=== PATIENT | female | born 1940 | race Caucasian/White ===

== ENCOUNTER → 2016-06-19 | Outpatient (CLI) | payer MEDICARE ==
[2016-06-19 11:23] VITALS: BP 142/67; PULSE 68; RESP 16; TEMP 97.8
--- NOTE | 2016-06-19 12:03 | P.PN ---
Subjective This is follow-up visit for this patient with a history of severe and chronic low back pain secondary to sacroiliitis, lumbar spondylosis with facet arthropathy, we have done interventional pain management injection, radiofrequency ablation of the medial branch lumbar area in October,november 2015, in March 2016 we did bilateral sacroiliac joint steroid injection, this helped her low back pain significantly, currently she is complaining of severe and bilateral buttock pain, and occasional radiation to the posterolateral aspect of the lower extremity , she denies any motor or sensory deficit ,and is currently on pain medications 1-naproxen 440 milligrams twice a day Patient denies any side effects of the medication, denies excessive drowsiness or sleepiness, denies suicidal ideation, and reports that the current pain medication is NOT helping To control the pain and improve activity of daily living Physical Examinations : 1-Constitutiona : Cooperative , not in acute distress . 2-HEENT : nech ; supple , no Lymphadenopathy , no Thyromegaly , normal thyroid size . eyes : no ptosis , no icterus, no photophobia . ENT : normal of hearing , normal oropharynx , no Thrush . 3- Respiratory : Chest clear to auscultations Bilaterally , no wheezing , no Rhonchi . 4- Cardiovascular : regular rate and rhythem , S1 , S2 , no S3 , no S4. 5- Gastrointestinal : abdomen soft no tenderness , bowel sounds positive all four quadrents , no organomegally . 6- Genitourinary : Defferred . 7- neurologic : Cranial nerve II to XII intact , no focal neurological deffecit . 8-psychatric : alert , oriented X 3 , appropriate affect , intact judgment and insight . 9-Lymphatic : no Lymphadenopathy . 10- musculoskeltal : exams of the Lumber spine = motor strength lower extremities ,thigh and legs .5/5 deep tendon reflexes : normal Knee Jerk , normal ankle Jerk . lumber facet Loading Test positive Sever tenderness over the Sacroiliac joint on the Right , and Left side Assessment and plan = - Chronic low back pain secondary sacroiliitis , lumbar spondylosis with facet arthropathy without myelopathy , - diagnoses, prognosis, and treatment options including but not limited to physical therapy, surgical interventions, interventional therapies and medication management including narcotics and adjuvant medication were discussed with the patient and all questions answered to the patient's satisfaction. -medication refile =none -procedure= patient could benefit from repeat bilateral sacroiliac joint steroid injection, Objective - Vital Signs Vital signs: Vital Signs Temp 97.8 F 06/19/16 11:16 Pulse 68 06/19/16 11:16 Resp 16 06/19/16 11:16 BP 142/67 06/19/16 11:16 Pulse Ox 99 06/19/16 11:16 Intake & Output 06/18/16 06/19/16 06/19/16 18:59 06:59 18:59 Weight 72.575 kg
== END | disposition home or self-care (01) ==
LOC: PNWHC3 11:08
PROVIDERS: ATTEND Specialist
DX: M46.1 Sacroiliitis, not elsewhere classified (principal); M47.816 Spondylosis without myelopathy or radiculopathy, lumbar region; M46.96 Unspecified inflammatory spondylopathy, lumbar region; Z79.899 Other long term (current) drug therapy
CPT/HCPCS: 99211

== ENCOUNTER 2016-07-06 07:41 | Day surgery (SDC) | payer MEDICARE ==
[2016-07-03 14:30] VITALS: BMI 29.2
[~2016-07-06 07:41] MED LIST: LACTATED RINGERS 1,000 ML IV SCH
[2016-07-06 07:58] VITALS: TEMP 96.1
[2016-07-06] MEDS ORDERED: LIDOCAINE 1% 20 ML VIAL (10MG/ML) FOR IV START INTRADERMA ONE (08:01)
[2016-07-06] MEDS ORDERED: BUPIVACAINE (PF) 0.5% 30 ML VIAL ONE (09:06)
[2016-07-06] MEDS ORDERED: MIDAZOLAM 2 MG/2 ML VIAL ONE (09:06)
[2016-07-06] MEDS ORDERED: TRIAMCINOLONE ACETONIDE 40 MG/ML 1 ML VIAL ONE (09:06)
[2016-07-06] MEDS ORDERED: fentaNYL (PF) 50 MCG/ML 2 ML AMP ONE (09:06)
--- NOTE | 2016-07-06 09:27 | P.PCN ---
Date of Procedure: 07/06/16 Procedure(s) Performed: Preoperative diagnoses= 1-bilateral sacroiliitis. 2-lumbosacral spondylosis with lumbar facet arthropathy without myelopathy Postoperative diagnoses= same as preoperative diagnosis. Procedure= bilateral sacroiliac joint steroid injection under fluoroscopic guidance. Anesthesia= conscious sedation with Versed 1 mg and fentanyl 50 micrograms and local infiltration with lidocaine 1% 4 ml Estimated blood loss=minimal. Procedure indication= the patient had a history of severe chronic low back pain , diagnosed with sacroiliitis and lumbar sacral facet arthropathy unresponsive to conservative treatment. Procedure description= the patient was seen and identified in the preoperative holding area, risks and benefits and alternative of the procedure and possible complications discussed with the patient, and he agreed with the preceding, patient signed the consent, an IV was started, and vital signs were monitored and were stable throughout the procedure, patient was placed in the prone position or table and the lumbosacral area was prepped and draped with a sterile fashion, vital signs were closely monitored during the procedure, the fluoroscopy camera was placed in the contralateral oblique view on the right sacroiliac joint and the lower part of the joint was identified, local infiltration of the skin and subcutaneous tissue with lidocaine 1% 2 mL then a 22-gauge Quincke-type spinal needle advanced slowly under fluoroscopy and placed in the posterior and inferior border of the right sacroiliac joint, placement confirmed with AP and lateral view, and after appropriate needle placement confirmed and after negative aspiration for heme and CSF and there was no paresthesia during the injection, 3 ml of Marcaine 0.5% and 40 mg of Kenalog injected after negative aspiration, the needle removed, and the entire same procedure was repeated for the left sacroiliac joint Patient tolerated the procedure well without any complication, The patient returned to supine position after the back was cleaned and a Band- Aid applied, the patient transported to recovery room in stable condition and he was monitored for 30 minutes before he was discharged home and then patient was reexamined before going home and patient was discharged in stable condition and patient will follow up with the pain clinic in a few weeks
[2016-07-06] MEDS ORDERED: IV FLUID CONTINUATION 1,000 ML IV ONE (09:31)
[2016-07-06 09:44] VITALS: RESP 18
[2016-07-06 09:59] VITALS: BP 137/75; PULSE 67
--- NOTE | 2016-07-06 11:55 | FL ---
Fluoroscopy HISTORY: Pain 9 seconds fluoroscopy time supplied to the referring clinician. 2 intraoperative C-arm images docume nt the procedure. See dictated report from anesthesia.
== END 2016-07-06 10:08 | disposition home or self-care (01) ==
LOC: ORPAIN 07:41
PROVIDERS: ATTEND Specialist
DX: G89.29 Other chronic pain (principal); M54.5 Low back pain; M46.1 Sacroiliitis, not elsewhere classified; M47.817 Spondylosis without myelopathy or radiculopathy, lumbosacral region; M46.97 Unspecified inflammatory spondylopathy, lumbosacral region; Z88.5 Allergy status to narcotic agent
CPT/HCPCS: J2250; J3301; J3010; G0260

== ENCOUNTER → 2016-08-02 | Outpatient (CLI) | payer MEDICARE ==
[2016-08-02 15:41] VITALS: BP 146/75; PULSE 64; RESP 18; TEMP 97.9
--- NOTE | 2016-08-04 07:53 | P.PN ---
Subjective This is follow-up visit for this patient with a history of severe and chronic low back pain secondary to sacroiliitis,and lumbar spondylosis, we have done interventional pain management injection, bilateral sacroiliac joint steroid injection, X2 And she gets excellent pain relief for a few weeks after each injection, Physical Examinations : 1-Constitutiona : Cooperative , not in acute distress . 2-HEENT : nech ; supple , no Lymphadenopathy , no Thyromegaly , normal thyroid size . eyes : no ptosis , no icterus, no photophobia . ENT : normal of hearing , normal oropharynx , no Thrush . 3- Respiratory : Chest clear to auscultations Bilaterally , no wheezing , no Rhonchi . 4- Cardiovascular : regular rate and rhythem , S1 , S2 , no S3 , no S4. 5- Gastrointestinal : abdomen soft no tenderness , bowel sounds positive all four quadrents , no organomegally . 6- Genitourinary : Defferred . 7- neurologic : Cranial nerve II to XII intact , no focal neurological deffecit . 8-psychatric : alert , oriented X 3 , appropriate affect , intact judgment and insight . 9-Lymphatic : no Lymphadenopathy . 10- musculoskeltal : exams of the cervical spine = motor strength normal bilateral upper extremities exams of the Lumber spine = motor strength lower extremities ,thigh and legs .5/5 deep tendon reflexes : normal Knee Jerk , normal ankle Jerk . lumber facet Loading Test positive strait leg raising test negative bilaterally Fabere test negative bilaterally Range of motion: Range of motion in flexion of the lumbar spine 60 degrees Range of motion range of motion of extension of the lumbar spine 10 Sever tenderness over the Sacroiliac joint on the Right , and Left side Assessment and plan = Low back pain secondary to sacroiliitis and lumbar spondylosis , she had a good result after bilateral sacroiliac joint steroid injections Patient to be good candidate to have radiofrequency ablation of the sacroiliac joint - diagnoses, prognosis, and treatment options including but not limited to physical therapy, surgical interventions, interventional therapies , and medication management including narcotics and adjuvant medication were discussed with the patient and all The questions answered -procedure= patient will be scheduled to have radiofrequency ablation of the dorsal roundness of L5-S1, and the radiofrequency ablation Of the lateral branches of S1/S2/S3 he would do the right side first then would do the left side later on Objective - Vital Signs Vital signs: Vital Signs Temp 97.9 F 08/02/16 15:31 Pulse 64 08/02/16 15:31 Resp 18 08/02/16 15:31 BP 146/75 08/02/16 15:31 Pulse Ox Intake & Output 08/01/16 08/02/16 08/02/16 18:59 06:59 18:59 Weight 72.575 kg
== END | disposition home or self-care (01) ==
LOC: PNWHC3 14:32
PROVIDERS: ATTEND Specialist
DX: M46.1 Sacroiliitis, not elsewhere classified (principal); M47.896 Other spondylosis, lumbar region
CPT/HCPCS: 99211

== ENCOUNTER 2016-08-15 06:42 | Day surgery (SDC) | payer MEDICARE ==
[2016-08-15 07:53] VITALS: RESP 16; TEMP 96.4
[2016-08-15] MEDS ORDERED: LACTATED RINGERS 1,000 ML IV ONE (08:06)
[2016-08-15] MEDS ORDERED: LIDOCAINE 1% 20 ML VIAL (10MG/ML) FOR IV START INTRADERMA ONE (08:07)
[2016-08-15] MEDS ORDERED: fentaNYL (PF) 50 MCG/ML 2 ML AMP ONE (08:39)
[2016-08-15] MEDS ORDERED: MIDAZOLAM 2 MG/2 ML VIAL ONE (08:39)
[2016-08-15] MEDS ORDERED: TRIAMCINOLONE ACETONIDE 40 MG/ML 1 ML VIAL ONE (08:39)
[2016-08-15] MEDS ORDERED: LACTATED RINGERS 1,000 ML IV SCH (08:45)
[2016-08-15] MEDS ORDERED: IV FLUID CONTINUATION 1,000 ML IV ONE (09:16)
--- NOTE | 2016-08-15 09:18 | FL ---
EXAMINATION TYPE: FL guided pain mgmt statistic DATE OF EXAM: 08/15/2016 9:05 AM HISTORY: Flouroscopy time 15 seconds of fluoroscopy provided. IMPRESSION: 1. Fluoroscopy time.
[2016-08-15 09:31] VITALS: BP 183/74; PULSE 56
--- NOTE | 2016-08-15 10:52 | P.PCN ---
Date of Procedure: 08/15/16 Surgeon: Maldonado Sánchez Pathology: none sent Condition: stable Disposition: PACU Description of Procedure: PREOPERATIVE DIAGNOSIS: Sacroiliitis; lumbar spondylosis without myelopathy POSTOPERATIVE DIAGNOSIS: Sacroiliitis; lumbar spondylosis without myelopathy PROCEDURE: Radiofrequency thermocoagulation/ablation of the Medial branch of L5 and S1, S2, S3 lateral branch levels under fluoroscopic guidance, RIGHT side ANESTHESIA: Local with 1% lidocaine; IV sedation with Versed/fentanyl EBL: Minimal PROCEDURE INDICATION: The patient with low back pain secondary to sacroilitis with marked decrease in pain with prior sacroiliac joint injections. No use of blood thinners. PROCEDURE DESCRIPTION: The patient was seen and identified in the preoperative area. Risks, benefits, complications, and alternatives were discussed with the patient, with risks including but not limited to bleeding, infection, nerve damage, incomplete pain relief, and allergic reactions to medications. The patient agreed to proceed with the procedure and signed the informed consent after all questions were answered. IV was started. Vital signs were stable throughout the procedure. Patient was taken to the OR and time out was completed. The patient was placed in the prone position on procedure table and a pillow was placed under the abdomen to reduce lumbar lordosis. The lumbosacral area was prepped and draped in the usual sterile fashion. Critical pause was taken. Vital signs were closely monitored during the procedure. L5 Medial Branch: Using right oblique fluoroscopy, the junction of the transverse process and the superior articular process of the top of the sacrum on the right side, which correspond to the fluoroscopic image of the "eye of the Luis Antonio dog" was identified. Skin and deeper tissues were localized with 1% lidocaine at the identified level. Then using fluoroscopy, a 10-cm 20-gauge radiofrequency cannula with a 10-mm active tip was was advanced under fluoroscopic guidance until contact was made with periosteum. At this level, the Sensory testing of L5 Medial branch was performed at 50 Hz and 0 to 1 volt with production of concordant pain. Motor stimulation was done at 2 Hz with stimulation of multifidus muscle contraction at (0.1-2.5) volts. No radicular symptoms or paresthesias were produced during the testing. Subsequently, the L5 medial branch was subjected to a radiofrequency ablation at a mode of 90 seconds at 80 degrees Celsius after negative motor and sensory testing as indicated and after injecting 0.5 ml of preservative free Lidocaine 1%. Then after the radiofrequency procedure was done, 1 mL of a solution containing 4 mL of 0.5% preservative-free lidocaine mixed with 40 mg of Kenalog. S1, S2, and S3 Medial branches: Using the oblique position, the right sacroiliac joint was identified. Skin and deeper tissues corresponding to the site were anesthetized with 1% lidocaine. Under fluoroscopic guidance, a total of three 10-cm 18-gauge radiofrequency cannula with 10-mm active tips were advanced to the lateral aspects of the S1, S2, and S3 vertebral foramina. Subsequently, sensory and motor testings were performed at a total of 3 segments at 50 Hz and 2 Hz respectively which produced concordant pain without radiculopathy or paresthesia. Then each segment was subjected to radiofrequency ablation at a mode of 90 seconds at 80 degrees Celsius for a total of 3 lesions with the bipolar technique. Then after the radiofrequency procedure was done, each site was injected with 1 mL of the aforementioned solution containing 4 mL of 0.5% preservative-free lidocaine mixed with 40 mg of Kenalog. The needles were withdrawn. Area was cleaned. Band-Aid was applied. COMPLICATIONS: None. COMMENTS: DISPOSITION / PLANS: The patient was placed in a supine position and transferred to the recovery area in a stable condition for observation and was discharged from the recovery room after meeting discharge criteria. Home discharge instructions given to the patient by the staff. The patient was reexamined prior to discharge and there were no issues. The patient will schedule a follow up for left SI RFA in 4-6 weeks.
== END 2016-08-15 09:55 | disposition home or self-care (01) ==
LOC: ORPAIN 06:42
PROVIDERS: ATTEND Anesthesiology
DX: G89.29 Other chronic pain (principal); M46.1 Sacroiliitis, not elsewhere classified; M47.816 Spondylosis without myelopathy or radiculopathy, lumbar region
CPT/HCPCS: 64640; 64635; 99152; J2250; J3301; J3010

== ENCOUNTER 2016-08-29 07:43 | Day surgery (SDC) | payer MEDICARE ==
[2016-08-25 14:48] VITALS: BMI 29.2
[2016-08-29 08:29] VITALS: RESP 16; TEMP 96.7
[2016-08-29] MEDS ORDERED: LIDOCAINE 1% 20 ML VIAL (10MG/ML) FOR IV START INTRADERMA ONE (08:38)
[2016-08-29] MEDS ORDERED: MIDAZOLAM 2 MG/2 ML VIAL ONE (09:08)
[2016-08-29] MEDS ORDERED: fentaNYL (PF) 50 MCG/ML 2 ML AMP ONE (09:08)
[2016-08-29] MEDS ORDERED: TRIAMCINOLONE ACETONIDE 40 MG/ML 1 ML VIAL ONE (09:08)
[2016-08-29] MEDS ORDERED: BUPIVACAINE (PF) 0.5% 30 ML VIAL ONE (09:08)
[2016-08-29] MEDS ORDERED: IV FLUID CONTINUATION 1,000 ML IV ONE (10:06)
--- NOTE | 2016-08-29 10:06 | P.PCN ---
Date of Procedure: 08/29/16 Procedure(s) Performed: PREOPERATIVE DIAGNOSIS: 1-Lumbosacral spondylosis with facet arthropathy without myelopathy. 2- Bilateral sacroiliit. post operative Diagnosis: . 1-Lumbosacral spondylosis with facet arthropathy without myelopathy. 2-Bilateral sacroiliit. PROCEDURES: 1- Left radiofrequency thermocoagulation/ablation of the L5 dorsal ramus. 2- Left multi-site radiofrequency thermocoagulation/ablation of the S1, S2, and S3 lateral branchs. The procedure was performed using fluoroscopic guidance during needle placement to assure proper position and maximize safety . ANESTHESIA: LOCAL ANESTHESIA Marcaine 0.5% 10 ML and IV sedation with versed 1mg and Fentanyle 50 mcg EBL: NONE INDICATION/MEDICAL NECESSITY: History of low back pain secondary to bilateral sacroiliitis and lumbosacral arthropathy unresponsive to more conservative treatments. The patient reported more than 50% relief of pain symptoms following 2 previous diagnostic blocks with Bupivacaine. PROCEDURE DESCRIPTION: The patient was seen and identified in the preoperative area. Risks, benefits, complications, and alternatives were discussed with the patient. The patient agreed to proceed with the procedure and signed the consent. Vital signs were checked before and after the procedure and they remained stable. Patient ambulated to the procedure room and time out was completed. The patient was placed in the prone position on the procedure table and a pillow was placed under the abdomen to reduce lumbar lordosis. The lumbosacral area was prepped and draped in the usual sterile fashion. Critical pause was taken. L5 Dorsal Ramus RF: Using left oblique fluoroscopy, the junction of the transverse process and the superior articular process of the right S1 vertebra, which correspond to the fluoroscopic image of the "eye of the Luis Antonio dog" was identified. Subsequently, a 10-cm 20 -gauge radiofrequency cannula with a 10-mm active tip was advanced under fluoroscopic guidance until contact was made with periosteum. At this level, the Sensory testing of the left L5 dorsal ramus was performed at 50 Hz and 0 to 1 volt with production of concordant pain starting at 0.5 volt. Motor stimulation was done at 2.5 Hz with stimulation of mulitifidus muscle contration . No radicular symptoms or paresthesias were produced during the testing. Subsequently, the left L5 dorsal ramus was subjected to a radiofrequency ablation at 80 degree celsius for 90 seconds . after 0.5% Bupivacaine 1 ml injected at each level after negative aspirations . The needle was withdrawn intact. S1, S3, and S3 Lateral Branch RF: The lateral margins of the left S1, S2, and S3 foramina were identified using AP fluoroscopy. Under fluoroscopic guidance, three 10-cm 20 -gauge radiofrequency cannula with a 10-mm active tip were inserted at 8-10 mm peripheral to the posterior S1 foramen, at various locations using clock-face coordinates. The center of the clock was registered at the lateral margin of the foramen. The 9:30, 8:00, and 6:30 oclock positions were used. At this level , the sensory testing of the S1 lateral branch was performed at 50 Hz and 0 to 1 volt at the three levels with production of concordant pain starting at 0.5 volt. Motor stimulation was done at 2.5 Hz. No radicular symptoms or paresthesias were produced during the testing. Subsequently, the left S1 lateral branch was subjected to a radiofrequency ablation at a mode of 90 seconds at 80 degrees Celsius at the 3 levels after negative motor and sensory testing and after injecting 0.5 ml of preservative free Bupivacaine 0.5 %. The same procedure was performed at the level of the left S2 foramen. For the S3 foramen, only the 9:30 and 8:00 oclock positions were used. Sensory and motor testing followed by radiofrequency ablation were performed as described for the S1 and S2 foramina. The needle was withdrawn intact after each injection. COMPLICATIONS: The patient tolerated the procedure well without any acute complications. DISPOSTION/PLAN: The patient ambulated to the recovery area after the procedure in a stable condition for observation. Patient was reexamined prior to discharge. Patient was observed for 30 minutes in the recovery area and was discharged home, accompanied by an adult, after meeting discharged criteria. Discharge instructions were give to the patient by the staff. Patient was specifically instructed not to drive today and to rest for the rest of the day. The patient will schedule a follow up visit in the clinic in 2-4 weeks or earlier if needed.
--- NOTE | 2016-08-29 10:23 | FL ---
EXAMINATION TYPE: FL guided pain mgmt statistic DATE OF EXAM: 08/29/2016 10:04 AM HISTORY: Flouroscopy time 36 seconds of fluoroscopy provided. IMPRESSION: 1. Fluoroscopy time.
[2016-08-29 10:30] VITALS: BP 144/70; PULSE 55
== END 2016-08-29 10:48 | disposition home or self-care (01) ==
LOC: ORPAIN 07:43
PROVIDERS: ATTEND Specialist
DX: M47.817 Spondylosis without myelopathy or radiculopathy, lumbosacral region (principal); M46.1 Sacroiliitis, not elsewhere classified; I10 Essential (primary) hypertension; M46.96 Unspecified inflammatory spondylopathy, lumbar region; Z88.5 Allergy status to narcotic agent
CPT/HCPCS: 64640 ×2; 64635; 99152; 99153; J2250; J3301; J3010

== ENCOUNTER → 2016-09-04 | Outpatient (CLI) | payer MEDICARE ==
--- NOTE | 2016-09-05 11:13 | MM ---
Reason for exam: screening (asymptomatic). Last mammogram was performed 1 year ago. History: Patient is postmenopausal and history of other cancer. Family history of breast cancer in grandmother at age 74. Took estrogen for 5 years beginning at age 30. Physical Findings: A clinical breast exam by your physician is recommended on an annual basis and results should be correlated with mammographic findings. MG 3D Screening Mammo W/Cad Bilateral CC and MLO view(s) were taken. Prior study comparison: August 31, 2015, bilateral MG 3d diag mammo w/cad KJ. August 31, 2015, left breast US breast LT. August 17, 2014, bilateral MG screening mammo w CAD. The breast tissue is heterogeneously dense. This may lower the sensitivity of mammography. Finding: There are typically benign vascular, round linear calcifications in both breasts. There is no discrete abnormality. ASSESSMENT: Benign, BI-RAD 2 RECOMMENDATION: Routine screening mammogram of both breasts in 1 year.
== END | disposition home or self-care (01) ==
LOC: RADMAMWWP 08:31
PROVIDERS: ATTEND Family Medicine
DX: Z12.31 Encounter for screening mammogram for malignant neoplasm of breast (principal)
CPT/HCPCS: 77063; G0202

== ENCOUNTER → 2016-09-25 | Outpatient (CLI) | payer MEDICARE ==
[2016-09-25 14:44] VITALS: BP 133/74; PULSE 65; RESP 16; TEMP 97.5
--- NOTE | 2016-09-25 15:10 | P.PN ---
Progress Note - Text Patient returns for followup for back pain with significant radiation to RLE into toes. Patient underwent bilateral SIJ RFA in June and July 2016 with very little relief. Patient continues on Aleve medication for pain with some relief Patient denies adverse drug effects from medications. Today, pt denies new-onset weakness, bowel/bladder incontinence, or any other signs or symptoms of cauda equina syndrome. There are no concerns for medication diversion, misuse, or overuse. In addition to above, 13-point review of systems is also negative for chest pain , shortness of breath, changes in vision, changes in hearing, new onset weakness , abdominal pain, diarrhea, extreme fatigue, malaise, fever, skin changes, homicidal or suicidal ideation, or bowel or bladder incontinence. Gen: WDWN, AAOx3, NAD HEENT: NCAT, EOMI, hearing grossly normal Pulm: resp unlabored Abd: soft, NT, ND Neck: supple, trachea midline ROM in flexion lumbar spine: reduced ROM in extension lumbar spine: reduced Lumbar paravertebral tenderness: bilateral Facet loading: bilateral SI joint tenderness: + Osmar's: ++ bilaterally Straight leg raise: RLE Lower extremity: decreased ROM dorsiflexion/plantarflexion secondary to pain, decreased knee flexion/extension due to pain Neuro: CN II-XII grossly intact, muscle strength lower extremities PRESERVED Assessment: 1. lumbosacral spondylosis without myelopathy 2. lumbar radiculopathy 3. sacroiliitis Plan: 1. Explanation: Opioid and psychological risk scores were reviewed. Diagnoses , prognoses, and multiple treatment options including but not limited to physical therapy, interventional therapies, adjuvant medical therapies, narcotic medication therapies, and surgery were discussed with the patient and all questions were answered to the patient's satisfaction. 2. Counseling: The patient was counseled extensively on BODY MASS INDEX, EXERCISE. Specifically, the patient was instructed regarding the importance of weight loss and exercise in the context of both chronic pain and overall health. 3. Procedures: LESI x 2 after patient returns from [place] 4. Consultations: None 5. Investigations: None 6. Medications: none for now 7. Disposition: f/u for procedure PQRS measures: 1-Patient's medications are documented in the chart. 2-Tobacco use is negative, counseling given 3-Patient has not had a pneumococcal vaccine. 4-Advanced care planning discussed, patient not eligible. 5-Opioid contract signed with the patient. 6-Pain positive, follow-up visit or procedure scheduled 7-Patient's blood pressure measured and documented, and patient will follow up with the primary care physician due to HTN. 8-Patient's weight was measured, and body mass index ABOVE the normal limits, and counseling was done. Patient instructed to follow up with PCP. 9-Patient WAS NOT identified as an unhealthy alcohol user.
== END ==
LOC: PNWHC3 14:26
PROVIDERS: ATTEND Anesthesiology
DX: M47.27 Other spondylosis with radiculopathy, lumbosacral region (principal); M46.1 Sacroiliitis, not elsewhere classified
CPT/HCPCS: 99211

== ENCOUNTER 2016-11-07 07:35 | Day surgery (SDC) | payer MEDICARE ==
[2016-11-02 08:30] VITALS: BMI 29.2
[~2016-11-07 07:35] MED LIST changes: +LACTATED RINGERS 1,000 ML IV ONE; -LACTATED RINGERS 1,000 ML IV SCH
[2016-11-07 07:49] VITALS: TEMP 98.1
[2016-11-07] MEDS ORDERED: LIDOCAINE 1% 20 ML VIAL (10MG/ML) FOR IV START INTRADERMA ONE (07:52)
[2016-11-07] MEDS ORDERED: BUPIVACAINE (PF) 0.5% 30 ML VIAL ONE (08:38)
[2016-11-07] MEDS ORDERED: MIDAZOLAM 2 MG/2 ML VIAL ONE (08:38)
[2016-11-07] MEDS ORDERED: IOHEXOL 180 MG/ML 1 ML ML ONE (08:38)
[2016-11-07] MEDS ORDERED: fentaNYL (PF) 50 MCG/ML 2 ML AMP ONE (08:38)
[2016-11-07] MEDS ORDERED: DEXAMETHASONE SOD PHOSPHATE 10 MG/ML 1 ML VIAL ONE (08:38)
--- NOTE | 2016-11-07 08:51 | P.PCN ---
Date of Procedure: 11/07/16 Preoperative Diagnosis: Postoperative Diagnosis: Procedure(s) Performed: PREOPERATIVE DIAGNOSIS: 1- Lumbar Degenerative Disc Diseases 2-Lumbar spondylosis with Facet arthropathy without myelopathy 3-lumbar radiculopathy. 4-sacriiliitis. POSTOPERATIVE DIAGNOSIS: Same as preoperative diagnoses. PROCEDURE 1. Lumbar epidural steroid injection under fluoroscopic guidance at the L5-S1 level. 2. Lumbar epidurogram. ANESTHESIA: Local with 1% lidocaine 3 ml and IV sedation with Versed 1 mg , and fentanyle 50 Mcg EBL: Minimal PROCEDURE INDICATION: The patient with low back pain and radiculitis symptoms unresponsive to conservative treatment. Fluoroscopy was used to optimize visualization of the needle placement and to maximize safety. PROCEDURE DESCRIPTION / TECHNIQUE: The patient was seen and identified in the preoperative area. Risks, benefits , complications including but not limited to infections ,bleeding ,allergic reaction to the medications ,nerve damage and not complete pain releife , and alternatives were discussed with the patient. The patient agreed to proceed with the procedure and signed the consent. IV was started, and vital signs were stable. Patient was taken to the OR and time out was completed. The patient was placed in the prone position on procedure table and a pillow was placed under the abdomen to reduce lumbar lordosis. The lumbosacral area was prepped and draped in the usual sterile fashion.ere closely monitored during the procedure. Conscious sedation was used during the procedure to decrease patients anxiety. Vital signs was monitered during the entire procedure. Using anterior-posterior fluoroscopy, the L5-S1 interlaminar space was identified and the skin over this site was marked and then infiltrated with 1% lidocaine subcutaneously. Subsequently, a 20-gauge Tuohy epidural needle was inserted and advanced toward the epidural space using the ``Loss of resistance technique and guided by AP and lateral fluoroscopy. The correct needle position in the epidural space was verified with the injection of 2 mL of the water soluble contrast dye Omnipaque 180 contrast and observing an excellent epidurogram with the epidural spread of the dye, after negative aspiration for blood and CSF and in the absence of paresthesias. Again after negative aspiration, a 6 ml mixture containing 20 mg of Dexamethasone and 2 ml of preservative free Normal Saline, and 2 ml of preservative free lidocaine 1% solution was injected and a washout of epidurogram was seen. Needle was withdrawn intact, skin was cleansed, and bandages were applied. COMPLICATIONS: None DISPOSITION / PLANS: The patient was placed in a supine position and transferred to the recovery area in a stable condition for observation. There was no evidence of lower extremity motor or sensory deficit after the procedure. Patient was discharged from the recovery room after meeting discharge criteria. Home discharge instructions were given to the patient by the staff. The patient was reexamined prior to discharge. The patient will schedule a follow up in the clinic in 2-4 weeks. Implants: Indications for Procedure: Operative Findings: Description of Procedure:
--- NOTE | 2016-11-07 09:04 | FL ---
Fluoroscopy HISTORY: Pain 3 seconds fluoroscopy time supplied to the referring clinician. 1 intraoperative C-arm image documen t the procedure. See dictated report from anesthesia.
[2016-11-07 09:18] VITALS: BP 132/65; PULSE 55; RESP 18
== END 2016-11-07 09:27 | disposition home or self-care (01) ==
LOC: ORPAIN 07:35
PROVIDERS: ATTEND Specialist
DX: M51.16 Intervertebral disc disorders with radiculopathy, lumbar region (principal); M47.26 Other spondylosis with radiculopathy, lumbar region; M46.96 Unspecified inflammatory spondylopathy, lumbar region; M46.1 Sacroiliitis, not elsewhere classified; I10 Essential (primary) hypertension; Z88.5 Allergy status to narcotic agent
CPT/HCPCS: 62323; J2250; J1100; Q9965; J3010

== ENCOUNTER 2016-11-30 10:15 | Day surgery (SDC) | payer MEDICARE ==
[2016-11-28 16:03] VITALS: BMI 29.2
[~2016-11-30 10:15] MED LIST changes: -LACTATED RINGERS 1,000 ML IV ONE; +LACTATED RINGERS 1,000 ML IV SCH
[2016-11-30 10:55] VITALS: RESP 16; TEMP 97.8
[2016-11-30] MEDS ORDERED: LIDOCAINE 1% 20 ML VIAL (10MG/ML) FOR IV START SQ ONE (11:06)
[2016-11-30] MEDS ORDERED: fentaNYL (PF) 50 MCG/ML 2 ML AMP ONE (11:42)
[2016-11-30] MEDS ORDERED: MIDAZOLAM 2 MG/2 ML VIAL ONE (11:42)
--- NOTE | 2016-11-30 12:02 | P.PCN ---
Date of Procedure: 11/30/16 Preoperative Diagnosis: Postoperative Diagnosis: Procedure(s) Performed: PREOPERATIVE DIAGNOSIS: 1- Lumbar Degenerative Disc Diseases 2-Lumbar radiculopathy. 3- lumbar spondylosis with facet arthropathy. POSTOPERATIVE DIAGNOSIS: Same as preop diagnosis diagnoses PROCEDURE 1. Lumbar epidural steroid injection under fluoroscopic guidance at the L5-S1 level. 2. Lumbar epidurogram. ANESTHESIA: Local with 1% lidocaine 3 ml and IV sedation with Versed 1 mg , and fentanyle 50 Mcg EBL: Minimal PROCEDURE INDICATION: The patient with low back pain and radiculitis symptoms unresponsive to conservative treatment. Fluoroscopy was used to optimize visualization of the needle placement and to maximize safety. PROCEDURE DESCRIPTION / TECHNIQUE: The patient was seen and identified in the preoperative area. Risks, benefits , complications including but not limited to infections ,bleeding ,allergic reaction to the medications ,nerve damage and not complete pain releife , and alternatives were discussed with the patient. The patient agreed to proceed with the procedure and signed the consent. IV was started, and vital signs were stable. Patient was taken to the OR and time out was completed. The patient was placed in the prone position on procedure table and a pillow was placed under the abdomen to reduce lumbar lordosis. The lumbosacral area was prepped and draped in the usual sterile fashion.ere closely monitored during the procedure. Conscious sedation was used during the procedure to decrease patients anxiety. Vital signs was monitered during the entire procedure. Using anterior-posterior fluoroscopy, the L5-S1 interlaminar space was identified and the skin over this site was marked and then infiltrated with 1% lidocaine subcutaneously. Subsequently, a 20-gauge Tuohy epidural needle was inserted and advanced toward the epidural space using the ``Loss of resistance technique and guided by AP and lateral fluoroscopy. The correct needle position in the epidural space was verified with the injection of 2 mL of the water soluble contrast dye Omnipaque 180 contrast and observing an excellent epidurogram with the epidural spread of the dye, after negative aspiration for blood and CSF and in the absence of paresthesias. Again after negative aspiration, a 6 ml mixture containing 20 mg of Dexamethasone and 2 ml of preservative free Normal Saline, and 2 ml of preservative free lidocaine 1% solution was injected and a washout of epidurogram was seen. Needle was withdrawn intact, skin was cleansed, and bandages were applied. COMPLICATIONS: None DISPOSITION / PLANS: The patient was placed in a supine position and transferred to the recovery area in a stable condition for observation. There was no evidence of lower extremity motor or sensory deficit after the procedure. Patient was discharged from the recovery room after meeting discharge criteria. Home discharge instructions were given to the patient by the staff. The patient was reexamined prior to discharge. The patient will schedule a follow up in the clinic in 2-4 weeks. Implants: Indications for Procedure: Operative Findings: Description of Procedure:
[2016-11-30] MEDS ORDERED: IV FLUID CONTINUATION 1,000 ML IV ONE (12:10)
[2016-11-30 12:30] VITALS: BP 165/72; PULSE 55
--- NOTE | 2016-11-30 14:00 | FL ---
EXAMINATION TYPE: FL guided pain mgmt statistic DATE OF EXAM: 11/30/2016 HISTORY: Flouroscopy time 7 seconds of fluoroscopy provided. IMPRESSION: 1. Fluoroscopy time.
== END 2016-11-30 12:41 | disposition home or self-care (01) ==
LOC: ORPAIN 10:15
PROVIDERS: ATTEND Specialist
DX: M51.16 Intervertebral disc disorders with radiculopathy, lumbar region (principal); M47.26 Other spondylosis with radiculopathy, lumbar region; M46.96 Unspecified inflammatory spondylopathy, lumbar region; Z88.5 Allergy status to narcotic agent
CPT/HCPCS: 62323; J2250; J3010

== ENCOUNTER → 2017-03-07 | Outpatient (CLI) | payer MEDICARE ==
--- NOTE | 2017-03-07 13:17 | ECHOF ---
Referral Reason:R01.1 Cardiac Murmur MEASUREMENTS -------- HEIGHT: 154.9 cm WEIGHT: 72.6 kg BP: 136/64 IVSd: 1.3 cm (0.6 - 1.1) LVIDd: 3.7 cm (3.9 - 5.3) LVPWd: 1.2 cm (0.6 - 1.1) IVSs: 1.7 cm LVIDs: 3.0 cm LVPWs: 1.6 cm LAESV Index (A-L): 15.07 ml/m Ao Diam: 2.9 cm (2.0 - 3.7) AV Cusp: 1.1 cm (1.5 - 2.6) LA Diam: 3.3 cm (2.7 - 3.8) MV EXCURSION: 18.829 mm (> 18.000) MV EF SLOPE: 89 mm/s (70 - 150) EPSS: 1.8 cm MV E Yves: 1.03 m/s MV DecT: 211 ms MV A Yves: 0.90 m/s MV E/A Ratio: 1.14 AR PHT: 658 ms RAP: 5.00 mmHg RVSP: 12.80 mmHg FINDINGS -------- Sinus rhythm. This was a technically adequate study. The left ventricular size is normal. There is mild concentric left ventricular hypertrophy. Overall left ventricular systolic function is normal with, an EF between 55 - 60 %. The right ventricle is normal in size and function. Normal LA size by volume 22+/-6 ml/m2. The right atrium is normal in size. Aortic valve is trileaflet and is mildly thickened. There is mild aortic regurgitation. The aortic pressure half-time by doppler is 658ms. There is no evidence of aortic stenosis. The mitral valve leaflets are mildly thickened. There is trace mitral regurgitation. Trace tricuspid regurgitation present. Right ventricular systolic pressure is normal at < 35 mmHg. There is no evidence of pulmonary hypertension. Trace/mild (physiologic) pulmonic regurgitation. The aortic root size is normal. Normal inferior vena cava with normal inspiratory collapse consistent with estimated right atrial pressure of 5 mmHg. The pericardium is normal. There is no pericardial effusion. CONCLUSIONS -------- 1. Sinus rhythm. 2. The mitral valve leaflets are mildly thickened. 3. There is trace mitral regurgitation. 4. Trace tricuspid regurgitation present. 5. Right ventricular systolic pressure is normal at < 35 mmHg. 6. There is no evidence of pulmonary hypertension. 7. Trace/mild (physiologic) pulmonic regurgitation. 8. The aortic root size is normal. 9. There is no pericardial effusion. 10. This was a technically adequate study. 11. The left ventricular size is normal. 12. There is mild concentric left ventricular hypertrophy. 13. Overall left ventricular systolic function is normal with, an EF between 55 - 60 %. 14. Normal LA size by volume 22+/-6 ml/m2. 15. Aortic valve is trileaflet and is mildly thickened. 16. There is mild aortic regurgitation. 17. The aortic pressure half-time by doppler is 658ms. TELECOMMUNICATION LINES REPAIRER: Josesito Sue RDCS
== END | disposition home or self-care (01) ==
LOC: RADECHMAIN 11:13
PROVIDERS: ATTEND Family Medicine
DX: I37.1 Nonrheumatic pulmonary valve insufficiency (principal); I35.1 Nonrheumatic aortic (valve) insufficiency
CPT/HCPCS: 93306

== ENCOUNTER → 2017-09-11 | Outpatient (CLI) | payer MEDICARE ==
--- NOTE | 2017-09-11 10:05 | MR ---
EXAMINATION TYPE: MR lumbar spine wo con DATE OF EXAM: 09/11/2017 COMPARISON: 12/26/2012 HISTORY: Low back pain TECHNIQUE: T1 and T2 axial and sagittal images of the lumbar spine are submitted. FINDINGS: There is no abnormal signal seen within the visualized spinal cord or paraspinal soft tissu es. Vertebral body hemangioma of T11 noted large simple in the left kidney At L1-2 there is moderate degenerative disc disease with diffuse disc bulging and hypertrophic change of the ligamentum flavum and facet joints. Finding appears stable from the prior exam. There is impr ession upon the thecal sac and evidence of mild central stenosis. Mild bilateral foraminal encroachme nt. Vertebral body hemangioma of L1 noted there is a minimal anterolisthesis which is retrospectively stable. At L2-3 there is degenerative disc disease with diffuse disc bulging greater laterally to left with m ild to moderate left foraminal encroachment and mild right foraminal encroachment. Facet arthropathy and hypertrophy ligamentum flavum contribute to mild canal stenosis is stable in appearance. At L3-4 there is vacuum disc phenomenon compatible severe degenerative disc disease which is progress ed prior exam. Diffuse disc bulging and more advanced facet arthropathy with hypertrophy of the ligam entum flavum noted. There is moderate canal stenosis and bilateral foraminal. Degree of Canal stenosi s is similar to the prior exam. At L4-5 there is severe degenerative disc disease with discogenic marrow changes. Vacuum disc noted. Advanced facet arthropathy with ligamentum flavum hypertrophy and broad-based disc protrusion resulti ng in severe canal stenosis and moderate to severe bilateral foraminal encroachment greater on the ri ght. At L5-S1 there is vacuum disc phenomenon severe degenerative disc disease with advanced facet arthrop athy. There is a central disc protrusion there is broad-based central disc protrusion or small hernia tion which is mildly progressed from the prior exam and results in central stenosis. Encroachment lat eral recess noted. Moderate to severe foraminal encroachment bilaterally greater on the left. IMPRESSION: 1. Multilevel severe degenerative disc disease with multilevel disc bulging and facet arthropathy. Fi ndings result in multilevel canal stenosis and foraminal encroachment as discussed above which appear s similar to the prior exam. 2. There is mild progression of a central disc protrusion or small herniation L5-S1 with effacement o f thecal sac and central stenosis.
== END ==
LOC: RADMRIMAIN 09:13
PROVIDERS: ATTEND Neurological Surgery
DX: M48.07 Spinal stenosis, lumbosacral region (principal); M99.73 Connective tissue and disc stenosis of intervertebral foramina of lumbar region; M51.27 Other intervertebral disc displacement, lumbosacral region; M51.37 Other intervertebral disc degeneration, lumbosacral region; M46.87 Other specified inflammatory spondylopathies, lumbosacral region
CPT/HCPCS: 72148

== ENCOUNTER → 2017-10-01 | Outpatient (CLI) | payer MEDICARE ==
--- NOTE | 2017-10-01 12:01 | BD ---
EXAMINATION TYPE: MG DEXA axial skeleton. DATE OF EXAM: 10/01/2017 COMPARISON: 01/08/2004 CLINICAL HISTORY: Postmenopausal female. Osteoporosis screening. Height: 60 Weight: 166.8 FRAX RISK QUESTIONS: Alcohol (3 or more units per day): no Family History (Parent hip fracture): no Glucocorticoids (More than 3mos): no (Ex: prednisone, prednisolone, methylprednisolone, dexamethasone, and hydrocortisone). History of Fracture in Adulthood: no Secondary Osteoporosis: 1. Type 1 Diabetes: no 2. Hyperthyroidism: no 3. Menopause before 45: no 4. Malnutrition: no 5. Chronic liver disease: no Rheumatoid Arthritis: no Current Tobacco Use: no RISK FACTORS HISTORY OF: Family History of Osteoporosis: no Active: yes Diet low in dairy products/other sources of calcium: no Postmenopausal woman: hysterectomy 1961 Lost more than 2 inches in height since high school: just 2 inches Adrenal Insufficiency: nothing at current time but getting kidneys checked MEDICATIONS: blood pressure meds, cholesterol meds Additional History: EXAM MEASUREMENTS: Bone mineral densitometry was performed using the [employer] System. Bone mineral density as measured about the Lumbar spine is: ----- L1-L4(G/cm2): 1.113 T Score Values are as follows: ----- L2: -0.8 ----- L3: -0.3 ----- L4: -0.2 ----- L1-L4: -0.6 Bone mineral density has: decreased -0.6 % since study of: 01.08.2004 Bone mineral density about the R hip (g/cm2): 0.761 Bone mineral density about the L hip (g/cm2): 0.838 T Score values are as follows: -----R Neck: -2.0 -----L Neck: -1.4 -----R Total: -1.6 -----L Total: -0.7 Bone mineral density has: decreased -15.4 % since study of: 01.08.2004 IMPRESSION: Osteopenia (T Score between -2.5 and -1). There is slightly increased risk of fracture and the patient may be considered for treatment. Re-Screen 2-5 years. NOTE: T-SCORE=SD OF THE YOUNG ADULT MEAN.
--- NOTE | 2017-10-02 11:50 | MM ---
Reason for exam: screening (asymptomatic). Last mammogram was performed 1 year and 1 month ago. History: Patient is postmenopausal and history of other cancer. Family history of breast cancer in grandmother at age 74. Took estrogen for 5 years beginning at age 30. Physical Findings: A clinical breast exam by your physician is recommended on an annual basis and results should be correlated with mammographic findings. MG 3D Screening Mammo W/Cad Bilateral CC and MLO view(s) were taken. Prior study comparison: September 04, 2016, bilateral MG 3d screening mammo w/cad. August 31, 2015, bilateral MG 3d diag mammo w/cad KJ. The breast tissue is heterogeneously dense. This may lower the sensitivity of mammography. Stable benign calcifications. Stable post operative changes in the right breast. No significant changes when compared with prior studies. ASSESSMENT: Benign, BI-RAD 2 RECOMMENDATION: Routine screening mammogram of both breasts in 1 year.
== END | disposition home or self-care (01) ==
LOC: RADMAMWWP 09:51
PROVIDERS: ATTEND Family Medicine
DX: Z12.31 Encounter for screening mammogram for malignant neoplasm of breast (principal); M85.88 Other specified disorders of bone density and structure, other site; Z78.0 Asymptomatic menopausal state
CPT/HCPCS: 77063; 77067; 77080

== ENCOUNTER → 2017-10-04 | Outpatient (CLI) | payer MEDICARE ==
--- NOTE | 2017-10-04 14:36 | US ---
EXAMINATION TYPE: US kidneys/renal and bladder DATE OF EXAM: 10/04/2017 COMPARISON: MRI 09/11/2017 CLINICAL HISTORY: N28.1 Cyst of Left Kidney. Possible cyst seen on left kidney on MRI, pt also states chronic microscopic hematuria EXAM MEASUREMENTS: Right Kidney: 9.8 x 4.8 x 4.1 cm Left Kidney: 10.0 x 4.8 x 5.0 cm Right Kidney: Cyst with septation lateral/mid= 2.2 x 1.6 x 2.1 cm Left Kidney: Multiple cysts (up to 3), 1 upper/medial= 4.3 x 3.5 x 3.5 cm, 2 lateral/lower= 4.2 x 3.7 x 4.1 cm, 3 lateral/lower= 1.5 x 1.2 x 1.5 cm Bladder: wnl Bilateral Jets seen: No Left kidney cysts show anechoic appearance with increased through transmission and imperceptible wall . Cortical medullary differentiation is maintained. Right kidney cyst shows abnormal internal septati ons. IMPRESSION: Right kidney cyst is not simple, follow-up is recommended.
== END | disposition home or self-care (01) ==
LOC: RADUSWWP 11:58
PROVIDERS: ATTEND Family Medicine
DX: N28.1 Cyst of kidney, acquired (principal); Z88.8 Allergy status to other drugs, medicaments and biological substances
CPT/HCPCS: 76770

== ENCOUNTER → 2017-11-26 | Outpatient (CLI) | payer MEDICARE ==
--- NOTE | 2017-11-26 11:18 | CT ---
EXAMINATION TYPE: CT abdomen wo/w con DATE OF EXAM: 11/26/2017 HISTORY: Patient has no complaints at time of service. Follow up renal cysts seen on back MRI and US . CT DLP: 1096.6mGycm Automated Exposure Control for Dose Reduction was Utilized. CONTRAST: CT scan of the abdomen is performed with oral and without and with IV Contrast, patient injected with 80 mL of Isovue 300. COMPARISON: Renal ultrasound October 04, 2017 FINDINGS: LUNG BASES: No significant abnormality is appreciated. LIVER/GB: Noncontrast CT shows liver isodense relative to spleen consistent with mild diffuse fatty i nfiltration. Cholecystectomy clips are present.. PANCREAS: No significant abnormality is seen. SPLEEN: There is 8mm calcified splenic artery aneurysm coronal image 85. ADRENALS: No significant abnormality is seen. KIDNEYS: Noncontrast images show no renal calculi bilaterally. Postcontrast images show symmetric upt aniya and excretion without hydronephrosis bilaterally. There are 2 exophytic simple appearing cysts le ft kidney upper pole medially measuring 4.1 x 3.5 cm axial image 28 and lower pole laterally measurin g 4.0 x 3.4 cm axial image 42 series 10. There is simple appearing 1.7 x 1.5 cm cyst posterior latera lly mid pole level right kidney image 38 series 10. There is likely 1.0 cm third adjacent simple cyst s lower pole level left kidney image 40 series 10. No suspicious nodularity or enhancing cystic lesio ns are present. Findings correlate with recent ultrasound BOWEL: Oral contrast reaches level of mid transverse colon. There is no suspicious small or large bow el dilatation. There are diverticula throughout the visualized transverse colon and distal left colon . No acute diverticulitis is evident. There is soft tissue prominence of the cecum persists on all se quences acquired. There is mild wall thickening in the proximal transverse colon on all sequences acq uired. LYMPH NODES: No greater than 1cm abdominal lymph nodes are appreciated. OSSEOUS STRUCTURES: There is multilevel facet arthropathy, spurring, and disc space narrowing through out the spine which is straightened. Findings most prominent L4-L5 and L5-S1 levels. OTHER: There is mild to moderate calcified plaque of aorta extending into branch vessels. IMPRESSION: 1. Simple appearing renal cysts redemonstrated, left kidney more numerous and larger cysts noted. No worrisome solid or cystic mass identified in either kidney. 2. Attention to bowel, suspect a mild colitis involving proximal transverse colon. Cannot exclude cec al mass or neoplasm correlating with roughly axial image 54 on all sequences versus product of incomp lete distention, advise colonoscopy follow-up if has not been performed in last 3 years.
== END | disposition home or self-care (01) ==
LOC: RADCTMAIN 08:10
PROVIDERS: ATTEND Urology
DX: N28.1 Cyst of kidney, acquired (principal); Z88.5 Allergy status to narcotic agent
CPT/HCPCS: 82565; 84520; 74170; 36415; Q9967

== ENCOUNTER → 2018-10-04 | Outpatient (CLI) | payer MEDICARE ==
--- NOTE | 2018-10-07 10:40 | MM ---
Reason for exam: screening (asymptomatic). Last mammogram was performed 1 year ago. History: Patient is postmenopausal and history of other cancer. Family history of breast cancer in grandmother at age 74. Took estrogen for 5 years beginning at age 30. Physical Findings: A clinical breast exam by your physician is recommended on an annual basis and results should be correlated with mammographic findings. MG 3D Screening Mammo W/Cad Bilateral CC and MLO view(s) were taken. XCCL view(s) were taken of the left breast. Prior study comparison: October 01, 2017, bilateral MG 3d screening mammo w/cad. September 04, 2016, bilateral MG 3d screening mammo w/cad. The breast tissue is heterogeneously dense. This may lower the sensitivity of mammography. There are typically benign appearing similar bilateral calcifications. No significant changes when compared with prior studies. ASSESSMENT: Benign, BI-RAD 2 RECOMMENDATION: Routine screening mammogram of both breasts in 1 year.
== END | disposition home or self-care (01) ==
LOC: RADMAMWWP 09:35
PROVIDERS: ATTEND Family Medicine
DX: Z12.31 Encounter for screening mammogram for malignant neoplasm of breast (principal)
CPT/HCPCS: 77063; 77067

== ENCOUNTER → 2020-09-20 | Outpatient (CLI) | payer MEDICARE ==
--- NOTE | 2020-09-21 13:31 | MR ---
EXAMINATION TYPE: MR lumbar spine wo con DATE OF EXAM: 09/20/2020 COMPARISON: MRI lumbar spine 09/11/2017 HISTORY: Low back pain per patient since 2004. TECHNIQUE: Multiplanar, multisequence imaging of the lumbar spine is performed without IV contrast. FINDINGS: Slight scoliotic curvature is redemonstrated and stable. Sagittal images of the lumbar spin e show vertebral body heights to remain satisfactory. Slight grade 1 anterolisthesis L1 and L2 redemo nstrated. Multilevel disc desiccation redemonstrated. [id number] multilevel disc space narrowin g redemonstrated. Moderate to borderline advanced disc space narrowing L4-L5 level is redemonstrated. The conus medullaris is normal in position and signal ending at inferior T12 level. The bone marrow signal intensity remains within normal limits. Small hemangioma superior L1 vertebra sagittal image 6 redemonstrated. [id number] multilevel anterior spurring redemonstrated. Axial images show T12-L1 level to remain within normal limits. Axial images at L1-L2 level redemonstrate mild to moderate facet degenerative changes and ligamentum flavum hypertrophy greater on the left with some effacement along the left posterolateral thecal sac. There is moderate broad-based posterior disc protrusion effacing the anterior thecal sac. Mild bilat eral neural foraminal narrowing. No significant change from prior. Axial images at L2-L3 level show [id number] broad disc bulge effacing the anterior thecal sac a long with mild/moderate left greater than right facet degenerative changes and ligamentum flavum hype rtrophy effacing left posterior lateral thecal sac, this finding slightly more prominent versus prior . There is moderate left-sided neural foraminal narrowing more prominent from prior study with mild r ight-sided neural foraminal narrowing thought stable. Axial images at L3-L4 level show moderate facet degenerative changes and ligamentum flavum hypertroph y effacing posterior lateral thecal sac bilaterally more prominent from prior. There is moderate broa d-based posterior disc protrusion effacing anterior thecal sac. More prominent spinal canal stenosis seen on current study axial image 13 versus prior. Moderate bilateral neural foraminal narrowing slig htly more prominent from prior study noted. Axial images at L4-L5 level show moderate facet arthropathy right greater than left and ligamentum fl avum hypertrophy redemonstrated. There is moderate broad disc bulge. There is moderate right greater than left neural foraminal narrowing. No significant change from prior. Axial images at L5-S1 level show moderate to advanced facet arthropathy bilaterally. There is moderat e to advanced broad disc bulge. There is spinal canal effacement redemonstrated. There is persistent moderate to severe bilateral neural foraminal narrowing. No significant change from prior. Partial visualization of thin-walled cysts in the visualized portion of left kidney is redemonstrated . IMPRESSION: Straightening of lumbar spine with multilevel degenerative changes as detailed above. Ronni e interval degenerative progression in findings in the mid lumbar spine noted from prior MRI.
== END | disposition home or self-care (01) ==
LOC: RADMRIMAIN 11:11
PROVIDERS: ATTEND Orthopaedic Surgery
DX: M51.26 Other intervertebral disc displacement, lumbar region (principal); M51.36 Other intervertebral disc degeneration, lumbar region; M47.816 Spondylosis without myelopathy or radiculopathy, lumbar region; M99.73 Connective tissue and disc stenosis of intervertebral foramina of lumbar region
CPT/HCPCS: 72148

== ENCOUNTER → 2020-10-14 | Day surgery (SDC) | payer MEDICARE ==
[2020-10-11 15:58] VITALS: BMI 31.2
[~2020-10-14] MED LIST changes: +IOPAMIDOL M200 10 ML VIAL ONE; +IV FLUID CONTINUATION 1,000 ML IV ONE; +methylPREDNISolone ACETATE 40 MG/ML 1 ML VIAL ONE
[2020-10-14 11:42] VITALS: TEMP 97.9
--- NOTE | 2020-10-14 12:32 | P.PCN ---
Date of Procedure: 10/14/20 Procedure(s) Performed: PREOPERATIVE DIAGNOSIS: 1-Lumbar radiculopathy .2-lumbar spinal stenosis. 3- lumbar spondylosis and lumbar facet arthropathy POSTOPERATIVE DIAGNOSIS: Same as preoperative diagnoses. PROCEDURE 1. Transforaminal epidural steroid injection under fluoroscopic guidance at left L-S1 5 level. (Fluoroscopy images stored on file in the radiology Department ) 2. Lumbar epidurogram . ANESTHESIA: Local with 1% lidocaine 3 ml only . EBL: Minimal PROCEDURE INDICATION: The patient with low back pain and radiculopathy symptoms unresponsive to conservative treatment. PROCEDURE DESCRIPTION / TECHNIQUE: The patient was seen and identified in the preoperative area. Risks, benefits, complications, and alternatives were discussed with the patient. The patient agreed to proceed with the procedure and signed the consent. IV was started, and vital signs were stable. Patient was taken to the OR and time out was completed. The patient was placed in the prone position on procedure table and a pillow was placed under the abdomen to reduce lumbar lordosis. The lumbosacral area was prepped and draped in the usual sterile fashion. Critical pause was taken. Vital signs were closely monitored during the procedure. Using oblique fluoroscopy, the chin of the ``Luis Antonio dog at L5-S1 level was identified, and the skin and deeper tissues just below was localized with 1% lidocaine. Subsequently, a 22-gauge 3.5-inch spinal needle was advanced under a tunneled view fluoroscopic guidance just underneath the chin of the ``Luis Antonio dog at the left L5-S1 Under lateral fluoroscopy, the needle was then advanced to the posterior border of the interforaminal space. After negative aspiration of CSF and blood and with no paresthesias, 1 mL Isovue 200 contrast dye was injected excellent epidurogram and outlining of the nerve root Subsequently, 3 mL of block solution containing 40 mg Depo-Medrol and 2 mL of 0.9% normal saline PF was injected. Needle was removed . At the end of the procedure, skin was cleansed, and bandages were applied. COMPLICATIONS:none DISPOSITION / PLANS: The patient was placed in a supine position and transferred to the recovery area in a stable condition for observation. There was no evidence of lower extremity motor or sensory deficit after the procedure. Patient was discharged from the recovery room after meeting discharge criteria. Home discharge instructions were given to the patient by the staff. The patient was reexamined prior to discharge.
[2020-10-14 13:05] VITALS: BP 125/74; PULSE 77; RESP 16
--- NOTE | 2020-10-14 16:40 | FL ---
EXAMINATION TYPE: FL guided pain mgmt statistic DATE OF EXAM: 10/14/2020 CLINICAL HISTORY: Transforaminal injection TECHNIQUE: Fluoroscopy. COMPARISON: None. FINDINGS: Fluoroscopic guidance was provided during procedure performed by Dr. Arriola. A total of 4 seconds of fluoroscopic time was utilized during the procedure and 1 spot images was acquired, demo nstrating needle placement at the lateral aspect of L5-S1. IMPRESSION: As Above.
== END ==
LOC: ORPAIN 11:09
PROVIDERS: ATTEND Specialist
DX: M47.26 Other spondylosis with radiculopathy, lumbar region (principal); M48.061 Spinal stenosis, lumbar region without neurogenic claudication; Z88.5 Allergy status to narcotic agent; Z88.8 Allergy status to other drugs, medicaments and biological substances
CPT/HCPCS: 64483; J1030; Q9966

== ENCOUNTER → 2020-11-01 | Outpatient (CLI) | payer MEDICARE ==
[2020-11-01 12:57] VITALS: BP 175/81; PULSE 65; RESP 16; TEMP 98.1
--- NOTE | 2020-11-01 13:11 | P.PN ---
Subjective Progress Note Date: 11/01/20 This is an 80-year-old lady with history of chronic lower back pain with ra diation to the lower extremities. She feels pain which fluctuates in intensity and location lately she's been having pain in the left thigh upon waking up in the morning but improves over time .she had transforaminal epidural steroid injection at the L4 5 level on the right side which gave her neck pain relief .the most recent MRI which she had a few weeks ago there was an increase in the foraminal stenosis at the L2-L3 level and her baseline of facet arthropathy and disc degeneration . Patient denies new-onset weakness, bowel/bladder incontinence, or any other signs or symptoms of cauda equina syndrome. There are no signs of acute intoxication, and no indications of medication diversion or overuse. In addition to above, 13-point review of systems is also negative for chest pain, shortness of breath, changes in vision, changes in hearing, new onset weakness, abdominal pain, diarrhea, extreme fatigue, malaise, fever, skin changes, homicidal or suicidal ideation, or bowel or bladder incontinence. Vital Signs: Reviewed in EMR Gen: AAOx3, NAD HEENT: PERRLA,hearing grossly normal Pulm: resp unlabored Neck: supple, trachea midline Neuro exam of the lower extremities: Normal muscle strength Straight leg raising test: Osmar's test: Range of motion of the lumbar spine: Facet loading test: Tenderness in the paravertebral musculature: Positive in the lumbar area Neuro: CN II-XII grossly intact, Imaging: Reviewed in EMR/chart Assessment: Lumbar spondylosis without myelopathy Lumbar stenosis Lumbar DDD Peripheral neuropathy, not diabetic Plan: 1. Explanation: Opioid and psychological risk scores were reviewed. Diagnoses, prognoses, and multiple treatment options including but not limited to physical therapy, interventional therapies, adjuvant medical therapies, narcotic medication therapies, and surgery were discussed with the patient and all questions were answered to the patient's satisfaction. 2. Opioid agreement: Signed with the patient and the patient is warned not to use opioids while driving or before driving and not to combine opioids with benzodiazepines or alcohol. 3. Counseling: The patient was counseled extensively on SMOKING CESSATION, BODY MASS INDEX, EXERCISE. Specifically, the patient was instructed regarding the importance of smoking cessation, obesity, and exercise in the context of both chronic pain and overall health. 4. Procedures: Due to the patient's bilateral symptoms I will Schedule her for an interlaminar epidural steroid injection at the L2-L3 level. 5. Consultations: None 6. Investigations: None 7. Medications:none 8. Disposition: We'll follow up in the clinic in 4 weeks after the injection 9. Maps were reviewed and were appropriate. Objective - Vital Signs Vital signs: Vital Signs Temp 98.1 F 11/01/20 12:55 Pulse 65 11/01/20 12:55 Resp 16 11/01/20 12:55 BP 175/81 11/01/20 12:55 Pulse Ox 99 11/01/20 12:55
== END ==
LOC: PNWHC3 12:43
PROVIDERS: ATTEND Anesthesiology
DX: M51.36 Other intervertebral disc degeneration, lumbar region (principal); M48.061 Spinal stenosis, lumbar region without neurogenic claudication; M47.816 Spondylosis without myelopathy or radiculopathy, lumbar region; G62.9 Polyneuropathy, unspecified; Z88.5 Allergy status to narcotic agent; Z88.8 Allergy status to other drugs, medicaments and biological substances
CPT/HCPCS: 99211

== ENCOUNTER 2020-11-23 08:27 | Day surgery (SDC) | payer MEDICARE ==
[2020-11-22 09:48] VITALS: BMI 33.2
[~2020-11-23 08:27] MED LIST changes: -IOPAMIDOL M200 10 ML VIAL ONE; -IV FLUID CONTINUATION 1,000 ML IV ONE; -methylPREDNISolone ACETATE 40 MG/ML 1 ML VIAL ONE
[2020-11-23] MEDS ORDERED: IOPAMIDOL M200 10 ML VIAL ONE (08:59)
[2020-11-23] MEDS ORDERED: methylPREDNISolone ACETATE 40 MG/ML 1 ML VIAL ONE (08:59)
--- NOTE | 2020-11-23 09:16 | P.PCN ---
Date of Procedure: 11/23/20 Procedure(s) Performed: PREOPERATIVE DIAGNOSIS: 1- Lumbar Degenerative Disc Diseases 2-Lumbar spondylosis with Facet arthropathy without myelopathy 3-Lumbar spinal stenosis POSTOPERATIVE DIAGNOSIS: Same as preop diagnosis. PROCEDURE 1. Lumbar epidural steroid injection under fluoroscopic guidance at the L2-3 level. (Fluoroscopy imaging was available in radiology department) 2. Lumbar epidurogram. ANESTHESIA: Local with 1% lidocaine 3 ml only. EBL: Minimal PROCEDURE INDICATION: The patient with low back pain and radiculitis symptoms unresponsive to conservative treatment. Fluoroscopy was used to optimize visualization of the needle placement and to maximize safety. PROCEDURE DESCRIPTION / TECHNIQUE: The patient was seen and identified in the preoperative area. Risks, benefits, complications including but not limited to infections ,bleeding ,allergic reacti on to the medications ,nerve damage and not complete pain releife , and alternatives were discussed with the patient. The patient agreed to proceed with the procedure and signed the consent, and vital signs were stable. Patient was taken to the OR and time out was completed. The patient was placed in the prone position on procedure table and a pillow was placed under the abdomen to reduce lumbar lordosis. The lumbosacral area was prepped and draped in the usual sterile fashion.ere closely monitored during the procedure. Vital signs was monitered during the entire procedure. Using anterior-posterior fluoroscopy, the L2-3 interlaminar space was identified and the skin over this site was marked and then infiltrated with 1% lidocaine subcutaneously. Subsequently, a 20-gauge Tuohy epidural needle was inserted and advanced toward the epidural space using the ``Loss of resistance technique and guided by AP and lateral fluoroscopy. The correct needle position in the epidural space was verified with the injection of 2 mL of the water soluble contrast dye Isovue 200 contrast and observing an excellent epidurogram with the epidural spread of the dye, after negative aspiration for blood and CSF and in the absence of paresthesias. Again after negative aspiration, a 6 ml mixture containing 40 mg of Depo-medrol , and 2 ml of preservative free Normal Saline, and 2 ml of preservative free lidocaine 1% solution was injected and a washout of epidurogram was seen. Needle was withdrawn intact, skin was cleansed, and bandages were applied. COMPLICATIONS: None DISPOSITION / PLANS: The patient was placed in a supine position and transferred to the recovery area in a stable condition for observation. There was no evidence of lower extremity motor or sensory deficit after the procedure. Patient was discharged from the recovery room after meeting discharge criteria. Home discharge instructions were given to the patient by the staff. The patient was reexamined prior to discharge. The patient will schedule a follow up in the clinic in 2-4 weeks.
--- NOTE | 2020-11-23 09:30 | FL ---
EXAMINATION TYPE: FL guided pain mgmt statistic DATE OF EXAM: 11/23/2020 HISTORY: Fluoroscopy time 4 seconds of fluoroscopy provided. IMPRESSION: 1. Fluoroscopy time.
[2020-11-23 09:34] VITALS: BP 137/72; PULSE 58
== END 2020-11-23 09:44 | disposition home or self-care (01) ==
LOC: ORPAIN 08:27
PROVIDERS: ATTEND Specialist
DX: M51.36 Other intervertebral disc degeneration, lumbar region (principal); M47.816 Spondylosis without myelopathy or radiculopathy, lumbar region; M48.061 Spinal stenosis, lumbar region without neurogenic claudication
CPT/HCPCS: 62323; J1030; Q9966

== ENCOUNTER 2020-12-07 12:29 | Day surgery (SDC) | payer MEDICARE ==
[2020-12-06 10:05] VITALS: BMI 33.0
[2020-12-07 13:05] VITALS: RESP 16; TEMP 97.3
[2020-12-07] MEDS ORDERED: LIDOCAINE 1% (10MG/ML) FOR IV START INTRADERMA ONE (13:05)
[2020-12-07] MEDS ORDERED: IOPAMIDOL M200 10 ML VIAL ONE (13:14)
[2020-12-07] MEDS ORDERED: methylPREDNISolone ACETATE 40 MG/ML 1 ML VIAL ONE (13:14)
[2020-12-07] MEDS ORDERED: fentaNYL (PF) 50 MCG/ML 2 ML AMP ONE (13:14)
[2020-12-07] MEDS ORDERED: MIDAZOLAM 2 MG/2 ML VIAL ONE (13:14)
--- NOTE | 2020-12-07 13:26 | P.PCN ---
Date of Procedure: 12/07/20 Procedure(s) Performed: PREOPERATIVE DIAGNOSIS: 1- Lumbar Degenerative Disc Diseases 2-Lumbar spondylosis with Facet arthropathy without myelopathy 3-Lumbar spinal stenosis POSTOPERATIVE DIAGNOSIS: Same as preop diagnosis. PROCEDURE 1. Lumbar epidural steroid injection under fluoroscopic guidance at the L2-3 level. (Fluoroscopy imaging was available in radiology department) 2. Lumbar epidurogram. ANESTHESIA: Moderate sedation with Versed 1 mg and fentanyl 50 g. EBL: Minimal PROCEDURE INDICATION: The patient with low back pain and radiculitis symptoms unresponsive to conservative treatment. Fluoroscopy was used to optimize visualization of the needle placement and to maximize safety. PROCEDURE DESCRIPTION / TECHNIQUE: The patient was seen and identified in the preoperative area. Risks, benefits, complications including but not limited to infections ,bleeding ,allergic reaction to the medications ,nerve damage and not complete pain releife , and alternatives were discussed with the patient. The patient agreed to proceed with the procedure and signed the consent, and vital signs were stable. Patient was taken to the OR and time out was completed. The patient was placed in the prone position on procedure table and a pillow was placed under the abdomen to reduce lumbar lordosis. The lumbosacral area was prepped and draped in the usual sterile fashion.ere closely monitored during the procedure. Vital signs was monitered during the entire procedure. sedations was given to decrease patient's anxiety Using anterior-posterior fluoroscopy, the L2-3 interlaminar space was identified and the skin over this site was marked and then infiltrated with 1% lidocaine subcutaneously. Subsequently, a 20-gauge Tuohy epidural needle was inserted and advanced toward the epidural space using the ``Loss of resistance technique and guided by AP and lateral fluoroscopy. The correct needle position in the epidural space was verified with the injection of 2 mL of the water soluble contrast dye Isovue 200 contrast and observing an excellent epidurogram with the epidural spread of the dye, after negative aspiration for blood and CSF and in the absence of paresthesias. Again after negative aspiration, a 6 ml mixture containing 40 mg of Depo-medrol , and 2 ml of preservative free Normal Saline, and 2 ml of preservative free lidocaine 1% solution was injected and a washout of epidurogram was seen. Needle was withdrawn intact, skin was cleansed, and bandages were applied. COMPLICATIONS: None DISPOSITION / PLANS: The patient was placed in a supine position and transferred to the recovery area in a stable condition for observation. There was no evidence of lower extremity motor or sensory deficit after the procedure. Patient was discharged from the recovery room after meeting discharge criteria. Home discharge instructions were given to the patient by the staff. The patient was reexamined prior to discharge. The patient will schedule a follow up in the clinic in 2-4 weeks.
[2020-12-07] MEDS ORDERED: IV FLUID CONTINUATION 700 ML IV ONE (13:32)
[2020-12-07 13:57] VITALS: BP 145/70; PULSE 57
--- NOTE | 2020-12-07 13:58 | FL ---
EXAMINATION TYPE: FL guided pain mgmt statistic DATE OF EXAM: 12/07/2020 HISTORY: Fluoroscopy time 5 seconds of fluoroscopy provided. IMPRESSION: 1. Fluoroscopy time.
== END 2020-12-07 14:06 | disposition home or self-care (01) ==
LOC: ORPAIN 12:29
PROVIDERS: ATTEND Specialist
DX: M51.36 Other intervertebral disc degeneration, lumbar region (principal); M47.816 Spondylosis without myelopathy or radiculopathy, lumbar region; M48.061 Spinal stenosis, lumbar region without neurogenic claudication; Z88.5 Allergy status to narcotic agent; Z88.8 Allergy status to other drugs, medicaments and biological substances
CPT/HCPCS: 62323; J2250; J1030; J3010; Q9966

== ENCOUNTER → 2021-01-03 | Outpatient (CLI) | payer MEDICARE ==
[2021-01-03 13:06] VITALS: BP 151/87; PULSE 65; RESP 18; TEMP 98.6
--- NOTE | 2021-01-03 13:21 | P.PN ---
Subjective Progress Note Date: 01/03/21 This is an 80-year-old lady with history of chronic lower back pain with ra diation to the lower extremities with peripheral neuropathy in both feet. The patient's pain radiates down to the knees bilaterally and she feels some numbness in the right thigh laterally. She received transforaminal and interlaminar epidural steroid injection which gave her 40% of pain relief however her pain is still not was tolerating that she states. The patient denies taking any controlled substances for her pain and she takes only [id number] medications. Patient denies new-onset weakness, bowel/bladder incontinence, or any other signs or symptoms of cauda equina syndrome. There are no signs of acute intoxication, and no indications of medication diversion or overuse. In addition to above, 13-point review of systems is also negative for chest pain, shortness of breath, changes in vision, changes in hearing, new onset weakness, abdominal pain, diarrhea, extreme fatigue, malaise, fever, skin changes, homicidal or suicidal ideation, or bowel or bladder incontinence. Vital Signs: Reviewed in EMR Gen: AAOx3, NAD HEENT: PERRLA,hearing grossly normal Pulm: resp unlabored Neck: supple, trachea midline Neuro exam of the lower extremities: Normal muscle strength bilaterally patient was in Straight leg raising test: Osmar's test: Positive bilaterally Range of motion of the lumbar spine: Facet loading test: Positive tenderness around the sacroiliac joints bilaterally Neuro: CN II-XII grossly intact, Imaging: Reviewed in EMR/chart Assessment: Bilateral sacroiliitis Lumbar stenosis Lumbar spondylosis without myelopathy Obesity Peripheral neuropathy Plan: 1. Explanation: Opioid and psychological risk scores were reviewed. Diagnoses, prognoses, and multiple treatment options including but not limited to physical therapy, interventional therapies, adjuvant medical therapies, narcotic medication therapies, and surgery were discussed with the patient and all questions were answered to the patient's satisfaction. 2. Opioid agreement: Signed with the patient and the patient is warned not to use opioids while driving or before driving and not to combine opioids with benzodiazepines or alcohol. 3. Counseling: The patient was counseled extensively on SMOKING CESSATION, BODY MASS INDEX, EXERCISE. Specifically, the patient was instructed regarding the importance of smoking cessation, obesity, and exercise in the context of both chronic pain and overall health. 4. Procedures: Scheduled for bilateral sacroiliac joint steroid injection under fluoroscopic guidance 5. Consultations: None 6. Investigations: None 7. Medications: None prescribed 8. Disposition: Proceed with the above-mentioned procedure as soon as possible 9. Maps were reviewed and were appropriate. Objective - Vital Signs Vital signs: Vital Signs Temp 98.6 F 01/03/21 12:59 Pulse 65 01/03/21 12:59 Resp 18 01/03/21 12:59 BP 151/87 01/03/21 12:59 Pulse Ox 97 01/03/21 12:59
== END | disposition home or self-care (01) ==
LOC: PNWHC3 12:52
PROVIDERS: ATTEND Anesthesiology
DX: M48.061 Spinal stenosis, lumbar region without neurogenic claudication (principal); M47.816 Spondylosis without myelopathy or radiculopathy, lumbar region; G62.9 Polyneuropathy, unspecified; E66.9 Obesity, unspecified; M46.1 Sacroiliitis, not elsewhere classified
CPT/HCPCS: 99211

== ENCOUNTER 2021-01-25 12:25 | Day surgery (SDC) | payer MEDICARE ==
[2021-01-24 08:50] VITALS: BMI 31.2
[2021-01-25 12:47] VITALS: RESP 16; TEMP 96.6
[2021-01-25] MEDS ORDERED: LIDOCAINE 1% (10MG/ML) FOR IV START INTRADERMA ONE (12:51)
[2021-01-25] MEDS ORDERED: ROPIVACAINE 5MG/ML 20ML VIAL ONE (13:25)
[2021-01-25] MEDS ORDERED: MIDAZOLAM 2 MG/2 ML VIAL ONE (13:25)
[2021-01-25] MEDS ORDERED: methylPREDNISolone ACETATE 40 MG/ML 1 ML VIAL ONE (13:25)
[2021-01-25] MEDS ORDERED: fentaNYL (PF) 50 MCG/ML 2 ML AMP ONE (13:25)
--- NOTE | 2021-01-25 13:38 | P.PCN ---
Date of Procedure: 01/25/21 Procedure(s) Performed: Procedure= bilateral sacroiliac joints steroid injection under fluoroscopy guidance (fluoroscopy image stored on file in the radiology Department ) Preoperative diagnosis= 1-sacroiliitis 2-lumbar spinal stenosis 3-lumbar spondylosis with facet arthropathy Postoperative diagnosis=Same as preop Diagnosis . Complication = none Condition= stable Anesthesia= moderate sedation with intravenous Versed 1 mg , and fentanyl 50 micrograms . Indication for the procedure= patient complaining of low back pain , examination was positive for severe tenderness over the sacroiliac joints bilaterally and patient diagnosed with sacroiliitis, for this reason he/ she was good candidate for sacroiliac joint steroid injection. Description of the procedure= procedure risk and benefits discussed with the patient, including but not limited, risk of infection and bleeding, and ALLERGIC reaction to the medication and not complete pain relief and patient agreed with the preceding patient taken to the operating room, placed in prone position or standard monitors applied to the patient then after induction of anesthesia back prepped with chlorhexidine 3 times , Then under strict sterile technique, first I did the right sacroiliac joint the which was identified under fluoroscopy guidance been local infiltration of the skin and subcu interstitial with lidocaine 1% then 22-gauge Quincke Needle advanced slowly under fluoroscopy and placed in the right sacroiliac joint needle placement confirmed with AP and oblique and lateral view and after appropriate needle placement confirmed and after negative aspiration, or heme , then Ropivacaine 0.5% 4 mL, and 20 mg of Depo-Medrol mixed together and injected in the right sacroiliac joint after negative aspiration patient tolerated the procedure well without any complication. Then the left sacroiliac joint steroid injection done under strict sterile technique local infiltration of the skin and subcu interstitial at the location of the left sacroiliac joint then a 22-gauge Quincke Needle advanced slowly under fluoroscopy time placed in the left sacroiliac joint, needle placement confirmed with AP and oblique and lateral view then after appropriate needle placement confirmed and after negative aspiration 0.5% Ropivacaine 4 mL and 20 mg of Depo-Medrol injected in the left sacroiliac joint after negative aspiration patient tolerated the procedure well that any complications and she will follow up in clinic 3 weeks
[2021-01-25] MEDS ORDERED: IV FLUID CONTINUATION 1,000 ML IV ONE (13:41)
[2021-01-25 13:47] VITALS: PULSE 56
[2021-01-25 14:03] VITALS: BP 157/81
--- NOTE | 2021-01-25 14:26 | FL ---
EXAMINATION TYPE: FL guided pain mgmt statistic DATE OF EXAM: 01/25/2021 HISTORY: Fluoroscopy time 5 seconds of fluoroscopy provided. IMPRESSION: 1. Fluoroscopy time.
== END 2021-01-25 14:19 | disposition home or self-care (01) ==
LOC: ORPAIN 12:25
PROVIDERS: ATTEND Specialist
DX: M46.1 Sacroiliitis, not elsewhere classified (principal); M48.061 Spinal stenosis, lumbar region without neurogenic claudication; M47.816 Spondylosis without myelopathy or radiculopathy, lumbar region
CPT/HCPCS: G0260; J2250; J1030; J3010; J2795

== ENCOUNTER → 2021-02-21 | Outpatient (CLI) | payer MEDICARE ==
[2021-02-21 13:49] VITALS: BP 175/82; PULSE 68; RESP 20; TEMP 98.2
--- NOTE | 2021-02-21 14:15 | P.PN ---
Subjective Progress Note Date: 02/21/21 This is a follow-up visit for this 80 years old female with a chronic history of severe low back pain patient diagnosed with lumbar radiculopathy, lumbar spinal stenosis, lumbar degenerative disc disease, lumbar spondylosis with lumbar facet arthropathy, previously we have done lumbar epidural steroid injection patient continued to have severe low back pain, and a few years ago we have done RFA of the medial branch lumbar area, and patient had excellent pain relief after RFA of the medial branch, she is complaining of severe pain in the low back area with radiation to the posterior aspect of her left lower extremity, has no motor or sensory deficit she has no fever or night sweats, done physical therapy in the past and she continued to do home exercise Objective - Vital Signs Vital signs: Vital Signs Temp 98.2 F 02/21/21 13:44 Pulse 68 02/21/21 13:44 Resp 20 02/21/21 13:44 BP 175/82 02/21/21 13:44 Pulse Ox 97 02/21/21 13:44 - Exam Physical Examinations : -Constitutiona : Cooperative , not in acute distress . -HEENT : nech : supple , no Lymphadenopathy , normal thyroid size . : eyes : no ptosis , no icterus, no photophobia . - neurologic : Cranial nerve II to XII intact , no focal neurological deffecit . -psychatric : alert , oriented X 3 , appropriate affect , intact judgment and insight . -Lymphatic : no Lymphadenopathy . - musculoskeltal : Lumber spine moter stegnth lower extremities ,thigh and legs 5/5 Right side , 5/5 Left side deep tendon reflexes : normal Knee Jerk , normal ankle Jerk lumber facet Loading Test =positive Right , positive Left Range of motion of the lumbar spine Flexion 30 degrees, extension 10 degrees strait leg raising test = negative bilaterally Fabere test= negative bilaterally. Assessment and Plan Plan: Assessment and plan=1-lumbar radiculopathy. 2-lumbar spinal stenosis. 2-lumbar degenerative disc disease. 4-lumbar spondylosis with lumbar facet arthropathy. Description: Benefit from repeat RFA of the medial branch lumbar area at L3, 4, L5 bilaterally Time with Patient: Less than 30
== END | disposition home or self-care (01) ==
LOC: PNWHC3 13:22
PROVIDERS: ATTEND Specialist
DX: M48.061 Spinal stenosis, lumbar region without neurogenic claudication (principal); M51.16 Intervertebral disc disorders with radiculopathy, lumbar region; M46.96 Unspecified inflammatory spondylopathy, lumbar region
CPT/HCPCS: 99211

== ENCOUNTER 2021-04-01 08:56 | Day surgery (SDC) | payer MEDICARE ==
[2021-03-30 15:37] VITALS: BMI 32.2
[2021-04-01 09:10] VITALS: TEMP 96.3
[2021-04-01] MEDS ORDERED: fentaNYL (PF) 50 MCG/ML 2 ML AMP ONE (09:44)
[2021-04-01] MEDS ORDERED: ROPIVACAINE 5MG/ML 20ML VIAL ONE (09:44)
[2021-04-01] MEDS ORDERED: MIDAZOLAM 2 MG/2 ML VIAL ONE (09:44)
[2021-04-01] MEDS ORDERED: TRIAMCINOLONE ACETONIDE 40 MG/ML 1 ML VIAL ONE (09:44)
--- NOTE | 2021-04-01 10:16 | P.PCN ---
Date of Procedure: 04/01/21 Procedure(s) Performed: PREOPERATIVE DIAGNOSIS: 1-Lumbar Spondylosis with Facet Arthropathy without myelopathy. 2- Lumber degenerative disc disease. POSTOPERATIVE DIAGNOSIS: 1- Lumbar Spondylosis with Facet Arthropathy without myelopathy. 2- Lumber degenerative disc disease. PROCEDURES : Bilateral Radiofrequency thermocoagulation, L3 , L4 , and L5 medial branch, with fluoroscopic guidance (fluoroscopy images available in the radiology department) ( to denervate the facet joint at Bilateral L4-5 ,and L5-S1 levels ). ANESTHESIA: Monitered anesthesia care . EBL: Minimal PROCEDURE INDICATION: The patient with low back pain secondary to lumbar facet arthropathy who had more than 50% relief of her pain with previous diagnostic lumbar medial branch block with bupivacaine. PROCEDURE DESCRIPTION / TECHNIQUE: The patient was seen and identified in the preoperative area. Risks, benefits, complications, including but not limited to risk of infection ,bleeding , allergic reactions to the medications and no complete pain releife , and alternatives were discussed with the patient, the patient agreed to proceed with the procedure and signed the consent. IV was started. Vital signs remained stable throughout the procedure. Patient was taken to the OR and time out was completed. The patient was placed in the prone position on the procedure table. The lumber area was prepped and draped in the usual sterile fashion. . Vital signs were closely monitored during the procedure .IV sedation was used during the procedure to decrease patients anxiety. Using AP and then oblique fluoroscopy, the ``eye of the Luis Antonio dog corresponding to the connection between the superior and transverse articular processes of right L3, L4, and L5 were identified, marked, and localized with 1% lidocaine. Subsequently, a 18 [id number] radiofrequency cannula with a 10- mm active tip was advanced guided by fluoroscopy to each of the``eyes of the Luis Antonio dog at right L3, L4, and L5. Each site then underwent sensory testing at 50 Hz and 0 to 1 volt and motor testing at 2.5 Hz and 0 to 3 volt with local stimulation, but no radicular symptoms down the legs. Thereafter each sites underwent radiofrequency thermocoagulation at 80 degrees celsius for 90 seconds after injecting 0.5 ml of PF Ropivacaine 1ml, then after the thermocoagulation done , 1 ml of the block solution containing Kenalog 20 mg and 3 ml of Ropivacaine 0.5% was injected at the right L3 , L4 , and L5 , levels after negative aspiration of CSF and blood and with no paresthesias. Cannulas were retracted while injecting lidocaine 1% until the needle is out. The same procedure was repeated at the level of Left L3, L4, and L5 levels. At the end of the procedure, the skin was cleansed and bandages were applied. COMPLICATIONS: No acute complications. DISPOSITION / PLANS: The patient was placed in a supine position and transferred to the recovery area in a stable condition for observation and was discharged from the recovery room after meeting discharge criteria. Home dischar ge instructions given to the patient by the staff. The patient was reexamined prior to discharge. The patient will schedule a follow up in the clinic in 2-4 weeks.
--- NOTE | 2021-04-01 10:22 | FL ---
EXAMINATION TYPE: FL guided pain mgmt statistic DATE OF EXAM: 04/01/2021 HISTORY: Fluoroscopy time 17 seconds of fluoroscopy provided. IMPRESSION: 1. Fluoroscopy time.
[2021-04-01] MEDS ORDERED: IV FLUID CONTINUATION 1,000 ML IV ONE (10:35)
[2021-04-01 10:57] VITALS: BP 142/76; PULSE 66; RESP 20
== END 2021-04-01 10:49 | disposition home or self-care (01) ==
LOC: ORPAIN 08:56
PROVIDERS: ATTEND Specialist
DX: M47.816 Spondylosis without myelopathy or radiculopathy, lumbar region (principal); M51.36 Other intervertebral disc degeneration, lumbar region; Z88.5 Allergy status to narcotic agent; Z88.8 Allergy status to other drugs, medicaments and biological substances; E78.5 Hyperlipidemia, unspecified; Z79.899 Other long term (current) drug therapy
CPT/HCPCS: 64635; 64636; J2250; J3301; J3010; J2795

== ENCOUNTER → 2021-04-20 | Outpatient (CLI) | payer MEDICARE ==
[2021-04-20 13:48] VITALS: BP 176/92; PULSE 65; RESP 18; TEMP 98.3
--- NOTE | 2021-04-20 15:01 | P.PN ---
Subjective Progress Note Date: 04/20/21 Ms. Becker is an 80-year-old female presenting to clinic today for follow-up appointment after day a bilateral lumbar radiofrequency ablation at L4 5 and L5- S1. 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 Since her procedure on 04/01/2021 she reports about 50% pain relief. He is still complaining of pain in her lower back she rates on average is about a 5 10 during the day. However the evenings reports to 10 out of 10 pain. She feels like the pain in the lower back radiates around into her groin with occasional spasm. In 2017 she had radiofrequency ablation of her SI joints. With that procedure she reported significant relief of her pain in her low back. She felt that procedure offered her the most benefit that she's had. Earlier this fall she has had bilateral SI joint injections that has offered her significant relief. She understands that she would need to repeat these injections periodically to help maintain that benefit and relief. She denies any bowel or bladder dysfunction, saddle anesthesia, or any other red flag symptoms. Objective - Vital Signs Vital signs: Intake & Output 04/19/21 04/20/21 04/20/21 18:59 06:59 18:59 Weight 74.843 kg - Exam Physical Examinations : -Constitutiona : Cooperative , not in acute distress . -HEENT : nech : supple , no Lymphadenopathy , normal thyroid size . : eyes : no ptosis , no icterus, no photophobia . - neurologic : Cranial nerve II to XII intact , no focal neurological deffecit . -psychatric : alert , oriented X 3 , appropriate affect , intact judgment and insight . -Lymphatic : no Lymphadenopathy . - musculoskeltal : Lumber spine moter stegnth lower extremities ,thigh and legs 5/5 Right side , 5/5 Left side deep tendon reflexes : normal Knee Jerk , normal ankle Jerk lumber facet Loading Test =positive Right , positive Left Range of motion of the lumbar spine Flexion 30 degrees, extension 10 degrees strait leg raising test = positive at 20 degree Fabere test= positive Right , and positive LT . Sever tenderness over the Sacroiliac joint on the Right , and Left sides Gaenslen test= positive right ,and positive left . Seated flexion test= positive right ,and positive Left . Distraction test= positive bilaterally Sacroiliac compression test= positive bilaterally Assessment and Plan Assessment: Assessment and plan Assessment: 1-lumbar radiculopathy. 2-lumbar spinal stenosis. 2-lumbar degenerative disc disease. 4-lumbar spondylosis with lumbar facet art hropathy. 5-sacroiliac joint dysfunction Plan: Patient follow-up as necessary consider repeat lumbar radiofrequency ablation at L4 5 and L5-S1 Consider repeat bilateral sacroiliac joint injection Dr. Thorne was available by phone for consultation during his visit. I have spent 23 minutes on patient care today. The time was used to review the medical records including relevant urine studies and Prescription history (MAPs), review of the available imaging, evaluation and examination of the patient, coordination of care with the medical staff and if applicable referring physicians, as well as creation of the medical record. - PQRS measures = - Patient's medications are documented in the chart. -Tobacco use is negative. -Patient's has received pneumococcal vaccine. -Advanced care planning discussed, patient not eligible. -Opiate contract not signed. -Pain positive and follow-up visit/procedure is scheduled. -Patient's blood pressure measured 176/92 , and documented in the record ,and patient will follow up with the primary care. -Patient was not identified as an unhealthy alcohol user Time with Patient: Less than 30
== END | disposition home or self-care (01) ==
LOC: PNWHC3 13:22
PROVIDERS: ATTEND Student in an Organized Health Care Education/Training Program
DX: M54.16 Radiculopathy, lumbar region (principal); M51.36 Other intervertebral disc degeneration, lumbar region; M48.061 Spinal stenosis, lumbar region without neurogenic claudication; M47.896 Other spondylosis, lumbar region; M53.3 Sacrococcygeal disorders, not elsewhere classified
CPT/HCPCS: 99211

== ENCOUNTER 2021-06-09 08:52 | Day surgery (SDC) | payer MEDICARE ==
[2021-06-02 15:30] VITALS: BMI 33.0
[2021-06-09 09:17] VITALS: RESP 16; TEMP 97.2
[2021-06-09] MEDS ORDERED: LACTATED RINGERS 1,000 ML IV ONE (09:32)
[2021-06-09] MEDS ORDERED: IOPAMIDOL M200 10 ML VIAL ONE (09:54)
[2021-06-09] MEDS ORDERED: LIDOCAINE 1% INJ 10MG/ML (20 ML MDV) ONE (09:54)
[2021-06-09] MEDS ORDERED: MIDAZOLAM 2 MG/2 ML VIAL ONE (09:54)
[2021-06-09] MEDS ORDERED: TRIAMCINOLONE ACETONIDE 40 MG/ML 1 ML VIAL ONE (09:54)
[2021-06-09] MEDS ORDERED: fentaNYL (PF) 50 MCG/ML 2 ML AMP ONE (09:54)
[2021-06-09] MEDS ORDERED: LACTATED RINGERS 1,000 ML IV SCH (10:00)
--- NOTE | 2021-06-09 10:08 | P.PCN ---
Date of Procedure: 06/09/21 Description of Procedure: PREOPERATIVE DIAGNOSIS: Sacroiliac joint dysfunction POSTOPERATIVE DIAGNOSIS: Sacroiliac joint dysfunction. PROCEDURES: 1. Bilateral Sacroiliac joint steroid injection #1 out of 2 2. Sacroiliac joint arthrogram. SURGEON: Isabella Wilhelm ANESTHESIA: Local and IV sedation : Versed 1 mg, and fentanyl 50 g. EBL: None. Specimen removed: None Fluoroscopic image: saved to electronic medical records. PROCEDURE INDICATIONS: This patient with a history of chronic low back pain, and sacroiliac joint dysfunction. Patient tried conservative therapy. Came here for intervention management. PROCEDURE DESCRIPTION: The patient was seen and identified in the preoperative area. Risks, benefits, complications, and alternatives were discussed with the patient. The patient agreed to proceed with the procedure and signed the consent. IV was started, and vital signs were stable. Patient was taken to the OR and time out was completed. The patient was placed in the prone position on procedure table and a pillow was placed under the abdomen to reduce lumbar lordosis. The lumbosacral area was prepped and draped in the usual sterile fashion. Critical pause was taken. Vital signs were closely monitored during the procedure. For the right side, the fluoroscopic camera was placed in left oblique view and right SI joint lower pole was identified. Skin entry point was infiltrated with 1% lidocaine and 22-gauge 3.5 inch spinal needle was introduced into the inferior one-third of SI joint and after penetrating into the joint arthrogram was done. 0.5 ml of [id number] contrast was injected after negative aspiration for blood, and air and negative for paresthesia. Good spread of the contrast into the SI joint has been seen. Then again after negative aspiration of spinal fluid and blood and negative for neurological symptoms, 3 mL of a solution containing total 2.5 mL of 1% preservative-free lidocaine mixed with 20 mg of Kenalog was injected. Needle was withdrawn intact. The entire procedure was repeated on the left side as above. Needle was withdrawn intact. Skin was cleansed, and bandages were applied. COMPLICATIONS: None. DISPOSITION / PLANS: The patient was placed in a supine position and transferred to the recovery area in a stable condition for observation and was discharged from the recovery room after meeting discharge criteria. Home discharge instructions given to the patient by the staff. The patient was reexamined prior to discharge. The patient will schedule for follow-up visit with the pain clinic in 2-4 weeks duration.
--- NOTE | 2021-06-09 10:18 | FL ---
EXAMINATION TYPE: FL guided pain mgmt statistic DATE OF EXAM: 06/09/2021 HISTORY: Fluoroscopy time 4 seconds of fluoroscopy provided. IMPRESSION: 1. Fluoroscopy time.
[2021-06-09 10:36] VITALS: BP 148/67; PULSE 58
== END 2021-06-09 10:53 | disposition home or self-care (01) ==
LOC: ORPAIN 08:52
DX: M53.3 Sacrococcygeal disorders, not elsewhere classified (principal); I10 Essential (primary) hypertension; M19.90 Unspecified osteoarthritis, unspecified site; Z90.710 Acquired absence of both cervix and uterus; Z90.49 Acquired absence of other specified parts of digestive tract; Z98.890 Other specified postprocedural states; Z88.5 Allergy status to narcotic agent; Z88.8 Allergy status to other drugs, medicaments and biological substances
CPT/HCPCS: J2250; J3301; J2001 ×2; J3010; Q9966; G0260

== ENCOUNTER → 2021-07-04 | Outpatient (CLI) | payer MEDICARE ==
[2021-07-04 14:12] VITALS: BP 145/89; PULSE 64; RESP 18; TEMP 98.2
--- NOTE | 2021-07-04 14:32 | P.PN ---
Subjective Progress Note Date: 07/04/21 Principal diagnosis: A 81 yr old female with a history of severe and chronic low back pain secondary to lumbar degenerative disc diseases and lumbar spondylosis with facet arthropathy presents today for a follow up for a bilateral SI joint injection. Pt has had on & off lower back and SI joint pain for greater than 20 years. Pt states she sustained 10% relief on the left side and >25% relief on the right side. Pain level is currently at 7 /10 of a dull/ achy character, but also sharp/ shooting towards the left groin. It also feels like a tight, pulling pain accompanied with stiffness upon awakening in the mornings. Pain is provoked by laying supine for extended hours at bedtime, sitting or standing for periods of 30 minutes or more or with walking. Pain is alleviated with medications, topicals, injections, repositioning, rest and stretching in the mornings. Interventional pain procedures completed include RFA of BL L4-L5 and bilateral SI joint injections Patient is currently on Neurontin Patient denies any side effects of the medication(s), denies excessive debbi wsiness or sleepiness, denies suicidal ideation and reports that the current pain medication is helping to control the pain and improve activities of daily living. Patient denies any motor or sensory deficits. Patient denies any fever or night sweats, denies any change in the bowel movements or urination. Physical Examination: -Constitutional: Cooperative. Not in acute distress . -HEENT: Neck is supple. No lymphadenopathy. No thyromegaly. Normal thyroid size. Eyes: No ptosis , no icterus, no photophobia. ENT: No auditory deficits. Normal oropharynx. No Thrush. - Respiratory: Chest clear to auscultations bilaterally. No wheezing. No rhonchi. - Cardiovascular: Regular rate and rhythm. S1 / S2 , no S3 , no S4. - Gastrointestinal: Abdomen soft no tenderness. Bowel sounds positive in all four quadrants. No organomegaly. - Genitourinary: Deferred. - Neurologic: Cranial nerve II to XII intact. No focal neurological deficits. - Psychatric: Alert & oriented x 3. Matching mood & appropriate affect. Judgment and insight intact. - Lymphatic: No Lymphadenopathy. - Musculoskeletal: Cervical spine: Muscle bulk/ tone/ strength in the bilateral upper extremities normal. Facet loading test cervical area positive. Lumbar spine: Motor bulk/ tone/ strength lower extremities , thigh and legs : 5/5 Deep tendon reflexes : Normal Knee Jerk. Normal Ankle Jerk . Lumbar Facet Loading Test positive Straight Leg Raise: positive at 30 degree right side/ left side Mary test: positive right side < left side Range of motion: Range of motion in flexion of the lumbar spine <60 degrees Range of motion: Extension of the lumbar spine <20 degrees Severe tenderness over the Sacroiliac joint: right side < left side Assessment and plan: Chronic low back pain secondary to lumbar degenerative disc disease , lumbar spondylosis with facet arthropathy without myelopathy Recommendation of bilateral SI joint injection Denies use of aspirin or anti coagulants Risks / benefits of procedure discussed and pt verbalized understanding All patient questions answered MAPS reviewed and it was appropriate. I have spent 31 minutes on patient care today. Dr Thorne was available by phone for the evaluation of this patient. The time was used to review the medical records including relevant urine studies and Prescription history (MAPs), review of the available imaging, evaluation and examination of the patient, coordination of care with the medical staff and if applicable referring physicians, as well as creation of the medical record Objective - Vital Signs Vital signs: Vital Signs Temp 98.2 F 07/04/21 14:00 Pulse 64 07/04/21 14:00 Resp 18 07/04/21 14:00 BP 145/89 07/04/21 14:00 Pulse Ox 97 07/04/21 14:00 PQRS Measure Charge Sheet Mode of Arrival: Ambulatory - Pain Location Back Non-Pharmacological Interventions: Relaxation Technique Pharmacological Interventions: Epidural PQRS Narrative: Smoking Status Never smoker Blood Pressure 145/89 Pain Intensity [Back] 7 Scale Used Numeric (1 - 10) Hx Alcohol Use (MH) No Home Medications: Ambulatory Orders Metoprolol Succinate [Toprol XL] 200 mg PO QAM 11/12/13 Naproxen Sodium [Aleve] 220 tab PO DAILY PRN 03/25/14 Enalapril/Hydrochlorothiazide [Vaseretic 10-25 mg] 1 each PO DAILY 11/30/15 Red Yeast Rice 600 mg PO DAILY 09/25/16 Turmeric Root Extract [Turmeric] 500 mg PO DAILY 10/11/20
== END | disposition home or self-care (01) ==
LOC: PNWHC3 13:30
PROVIDERS: ATTEND Physician Assistant Medical
DX: M47.896 Other spondylosis, lumbar region (principal); M51.36 Other intervertebral disc degeneration, lumbar region
CPT/HCPCS: 99211

== ENCOUNTER 2021-08-09 09:29 | Day surgery (SDC) | payer MEDICARE ==
[2021-08-08 13:01] VITALS: BMI 31.2
[2021-08-09 09:49] VITALS: RESP 16; TEMP 97.1
[2021-08-09] MEDS ORDERED: LACTATED RINGERS 1,000 ML IV ONE (09:58)
[2021-08-09] MEDS ORDERED: LIDOCAINE 1% (10MG/ML) FOR IV START INTRADERMA ONE (09:58)
[2021-08-09] MEDS ORDERED: TRIAMCINOLONE ACETONIDE 40 MG/ML 1 ML VIAL ONE (10:00)
[2021-08-09] MEDS ORDERED: fentaNYL (PF) 50 MCG/ML 2 ML AMP ONE (10:00)
[2021-08-09] MEDS ORDERED: MIDAZOLAM 2 MG/2 ML VIAL ONE (10:00)
[2021-08-09] MEDS ORDERED: IOPAMIDOL M200 10 ML VIAL ONE (10:00)
--- NOTE | 2021-08-09 10:17 | P.PCN ---
Date of Procedure: 08/09/21 Description of Procedure: PREOPERATIVE DIAGNOSIS: Sacroiliac joint dysfunction POSTOPERATIVE DIAGNOSIS: Sacroiliac joint dysfunction. PROCEDURES: 1. Bilateral Sacroiliac joint steroid injection #2 out of 2 2. Sacroiliac joint arthrogram. SURGEON: Isabella Wilhelm ANESTHESIA: Local and IV sedation : Versed 1 mg, and fentanyl 50 g. EBL: None. Specimen removed: None Fluoroscopic image: saved to electronic medical records. PROCEDURE INDICATIONS: This patient with a history of chronic low back pain, and sacroiliac joint dysfunction. Patient tried conservative therapy. Came here for intervention management. PROCEDURE DESCRIPTION: The patient was seen and identified in the preoperative area. Risks, benefits, complications, and alternatives were discussed with the patient. The patient agreed to proceed with the procedure and signed the consent. IV was started, and vital signs were stable. Patient was taken to the OR and time out was completed. The patient was placed in the prone position on procedure table and a pillow was placed under the abdomen to reduce lumbar lordosis. The lumbosacral area was prepped and draped in the usual sterile fashion. Critical pause was taken. Vital signs were closely monitored during the procedure. For the right side, the fluoroscopic camera was placed in left oblique view and right SI joint lower pole was identified. Skin entry point was infiltrated with 1% lidocaine and 22-gauge 3.5 inch spinal needle was introduced into the inferior one-third of SI joint and after penetrating into the joint arthrogram was done. 0.5 ml of [id number] contrast was injected after negative aspiration for blood, and air and negative for paresthesia. Good spread of the contrast into the SI joint has been seen. Then again after negative aspiration of spinal fluid and blood and negative for neurological symptoms, 3 mL of a solution containing total 2 mL of 1% preservative-free lidocaine mixed with 40 mg of Kenalog was injected. Needle was withdrawn intact. The entire procedure was repeated on the left side as above. Needle was withdrawn intact. Skin was cleansed, and bandages were applied. COMPLICATIONS: None. DISPOSITION / PLANS: The patient was placed in a supine position and transferred to the recovery area in a stable condition for observation and was discharged from the recovery room after meeting discharge criteria. Home discharge instructions given to the patient by the staff. The patient was reexamined prior to discharge. The patient will schedule for follow-up visit with the pain clinic in 4 weeks duration.
[2021-08-09] MEDS ORDERED: IV FLUID CONTINUATION 1,000 ML IV ONE (10:27)
[2021-08-09] MEDS ORDERED: LACTATED RINGERS 1,000 ML IV SCH (10:30)
[2021-08-09 10:37] VITALS: BP 124/64; PULSE 72
--- NOTE | 2021-08-09 11:19 | FL ---
Fluoroscopy HISTORY: Pain 6 seconds fluoroscopy time supplied to the referring clinician. 2 intraoperative C-arm images docume nt the procedure. See dictated report from anesthesia.
== END 2021-08-09 10:52 | disposition home or self-care (01) ==
LOC: ORPAIN 09:29
DX: G89.29 Other chronic pain (principal); M53.3 Sacrococcygeal disorders, not elsewhere classified; I10 Essential (primary) hypertension; Z90.49 Acquired absence of other specified parts of digestive tract; Z98.49 Cataract extraction status, unspecified eye; Z98.890 Other specified postprocedural states; Z79.899 Other long term (current) drug therapy; Z88.5 Allergy status to narcotic agent; Z88.8 Allergy status to other drugs, medicaments and biological substances
CPT/HCPCS: J2250; J3301; J3010; Q9966; G0260

== ENCOUNTER → 2021-08-25 | Outpatient (CLI) | payer MEDICARE ==
[2021-08-25 14:06] VITALS: BP 167/75; PULSE 62; RESP 18; TEMP 98
--- NOTE | 2021-08-25 14:14 | P.PN ---
Subjective Progress Note Date: 08/25/21 Principal diagnosis: A 81 yr old female with a history of severe and chronic low back pain secondary to lumbar degenerative disc diseases and lumbar spondylosis with facet arthropathy presents today for evaluation for bilateral SI joint injection #2 and sacral pain. Patient states she experienced 50% pain relief up until this day status post procedure. Today, she feels accentuated pain in the tailbone region, dull, achy, soreness in the buttocks and posterior hip regions, right side greater than left. Pain is provoked when sitting for 30 minutes or more, standing or walking for 20 minutes or more. Pain is alleviated with OTC medications, topicals, injections, ice, heat and very minimally, physical therapy in the past, chiropractic treatments in the past, home-based stretching regimen, repositioning and rest. Interventional pain procedures completed include BL SI injections x 2; BL RFA L4-L5, L5-S1. Patient is currently on Tylenol OTC, Aleve once a month due to Renal Toxicity Patient denies any side effects of the medication(s), denies excessive drowsiness or sleepiness, denies suicidal ideation and reports that the current pain medication is helping to control the pain and improve activities of daily living. Patient denies any motor or sensory deficits. Patient denies any fever or night sweats, denies any change in the bowel movements or urination. Physical Examination: -Constitutional: Cooperative. Not in acute distress . -HEENT: Neck is supple. No lymphadenopathy. No thyromegaly. Normal thyroid size. Eyes: No ptosis , no icterus, no photophobia. ENT: No auditory deficits. Normal oropharynx. No Thrush. - Respiratory: Chest clear to auscultations bilaterally. No wheezing. No rhonchi. - Cardiovascular: Regular rate and rhythm. S1 / S2 , no S3 , no S4. - Gastrointestinal: Abdomen soft no tenderness. Bowel sounds positive in all four quadrants. No organomegaly. - Genitourinary: Deferred. - Neurologic: Cranial nerve II to XII intact. No focal neurological deficits. - Psychatric: Alert & oriented x 3. Matching mood & appropriate affect. Judgment and insight intact. - Lymphatic: No Lymphadenopathy. - Musculoskeletal: Cervical spine: Muscle bulk/ tone/ strength in the bilateral upper extremities normal. Facet loading test cervical area positive. Lumbar spine: Motor bulk/ tone/ strength lower extremities , thigh and legs : 5/5 Deep tendon reflexes : Normal Knee Jerk. Normal Ankle Jerk . Vertebral body tenderness to palpation over Lumbar Facet Loading Test positive Straight Leg Raise: positive at 30 degrees right side/ left side Gaenslen's Test positive Sacral spine : Severe tenderness over the Sacroiliac joint: right side / left side Range of motion: Flexion of the lumbar spine <60 degrees Range of motion: Extension of the lumbar spine 10 degrees Gaenslen's Test positive Mary test: positive right side > left side Assessment and plan: Chronic low back pain secondary to lumbar degenerative disc disease , lumbar spondylosis with facet arthropathy without myelopathy Recommendation of Caudal STEPHON with lysis. May need a series of injections to obtain optimal pain relief. Risks, benefits of procedure discussed and pt verbalized understanding. Denies anticoagulant use. Denies medical history of diabetes. All patient questions answered MAPS reviewed and it was appropriate. I have spent 31 minutes on patient care today. Dr Thorne was available by phone for the evaluation of this patient. The time was used to review the medical records including relevant urine studies and Prescription history (MAPs), review of the available imaging, evaluation and examination of the patient, coordination of care with the medical staff and if applicable referring physicians, as well as creation of the medical record Objective - Vital Signs Vital signs: Vital Signs Temp 98 F 08/25/21 14:01 Pulse 62 08/25/21 14:01 Resp 18 08/25/21 14:01 BP 167/75 08/25/21 14:01 Pulse Ox 98 08/25/21 14:01 Intake & Output 08/24/21 08/25/21 08/25/21 18:59 06:59 18:59 Weight 72.575 kg PQRS Measure Charge Sheet Mode of Arrival: Ambulatory - Pain Location Lower Back Non-Pharmacological Interventions: Chiropractic Treatment, Heat, Home Exercise, Ice, Inactivity, Physical Therapy, Position/Reposition, Stretching Pharmacological Interventions: Block, Epidural, PRN Medication, Topical Medication PQRS Narrative: Smoking Status Never smoker Blood Pressure 167/75 Pain Intensity [Lower Back] 7 Scale Used Numeric (1 - 10) Hx Alcohol Use (MH) No Home Medications: Ambulatory Orders Metoprolol Succinate [Toprol XL] 200 mg PO QAM 11/12/13 Naproxen Sodium [Aleve] 220 tab PO DAILY PRN 03/25/14 Enalapril/Hydrochlorothiazide [Vaseretic 10-25 mg] 1 each PO DAILY 11/30/15 Red Yeast Rice 600 mg PO DAILY 09/25/16 Turmeric Root Extract [Turmeric] 500 mg PO DAILY 10/11/20 Acetaminophen [Tylenol Extra Strength] 500 - 1,000 mg PO DIRECTED PRN 08/08/21
== END | disposition home or self-care (01) ==
LOC: PNWHC3 13:04
PROVIDERS: ATTEND Specialist
DX: M47.896 Other spondylosis, lumbar region (principal); M51.36 Other intervertebral disc degeneration, lumbar region
CPT/HCPCS: 99211

== ENCOUNTER 2021-10-04 07:57 | Day surgery (SDC) | payer MEDICARE ==
[2021-10-04 08:19] VITALS: RESP 18; TEMP 96.8
[2021-10-04] MEDS ORDERED: LIDOCAINE 1% (10MG/ML) FOR IV START INTRADERMA ONE (08:21)
[2021-10-04] MEDS ORDERED: LACTATED RINGERS 1,000 ML IV SCH (08:30)
[2021-10-04] MEDS ORDERED: LIDOCAINE 1% (10MG/ML) FOR IV START INTRADERMA PRN (08:30)
[2021-10-04] MEDS ORDERED: fentaNYL (PF) 50 MCG/ML 2 ML AMP ONE (08:55)
[2021-10-04] MEDS ORDERED: methylPREDNISolone ACETATE 40 MG/ML 1 ML VIAL ONE (08:55)
[2021-10-04] MEDS ORDERED: IOPAMIDOL M200 10 ML VIAL ONE (08:55)
[2021-10-04] MEDS ORDERED: MIDAZOLAM 2 MG/2 ML VIAL ONE (08:55)
--- NOTE | 2021-10-04 09:12 | P.PCN ---
Date of Procedure: 10/04/21 Description of Procedure: PREOPERATIVE DIAGNOSIS: Lumbar degenerative disc disease and lumbar ra diculopathy. POSTOPERATIVE DIAGNOSIS: Lumbar degenerative disc disease, and lumbar radiculopathy. PROCEDURE: 1. Caudal epidural steroid injection under fluoroscopic guidance #1. 2. Caudal epidurogram. SURGEON: Isabella Temple ANESTHESIA: Local with 1% lidocaine; IV sedation : Versed and fentanyl EBL: None. Specimens removed: None Complications: None Fluoroscopic image: saved to electronic medical records PROCEDURE INDICATION: Patient had a history of lumbar postlaminectomy syndrome, failed with conservative therapy. pain radiating distally returns for caudal epidural steroid injection. PROCEDURE DESCRIPTION: The patient was seen and identified in the preoperative area. Risks, benefits, complications, and alternatives were discussed with the patient. The patient agreed to proceed with the procedure and signed the consent. IV was started, and vital signs were stable. Patient was taken to the OR and time out was completed. The patient was placed in the prone position on procedure table and a pillow was placed under the abdomen to reduce lumbar lordosis. The lumbosacral area was prepped and draped in the usual sterile fashion. Critical pause was taken. Vital signs were closely monitored during the procedure. Using lateral fluoroscopy the anterior-posterior plates of the sacrum were identified and the skin and deeper tissues corresponding into sacrococcygeal li gament were anesthetized using approximately 3 mL of 1% lidocaine. Then under fluoroscopy, a 3-1/2-inch 20-gauge Tuohy epidural needle was guided through the sacrococcygeal ligament, and into the epidural space. After negative aspiration, a 1 mL of Isovue contrast dye was injected with epidurogram. Again after negative aspiration for CSF, blood, and with no paresthesias, Depo-Medrol 80mg, with 10ml of preservative free normal saline(total of 11ml) solution was injected with washout of epidurogram. Needle was withdrawn intact. Skin was cleansed, and bandage was applied. DISPOSITION / PLANS: The patient was placed in a supine position and transferred to the recovery area in a stable condition for observation and was discharged from the recovery room after meeting discharge criteria. Home discharge instructions given to the patient by the staff. The patient was reexamined prior to discharge. The patient will schedule a follow up in the clinic in 4 weeks.
[2021-10-04] MEDS ORDERED: IV FLUID CONTINUATION 1,000 ML IV ONE (09:13)
[2021-10-04 09:29] VITALS: BP 116/70; PULSE 63
== END 2021-10-04 09:48 | disposition home or self-care (01) ==
LOC: ORPAIN 07:57
DX: M51.16 Intervertebral disc disorders with radiculopathy, lumbar region (principal)
CPT/HCPCS: 62264; J2250; J1030; J3010; Q9966

== ENCOUNTER → 2021-11-30 | Outpatient (CLI) | payer MEDICARE ==
--- NOTE | 2021-11-30 15:00 | BD ---
EXAMINATION TYPE: Axial Bone Density DATE OF EXAM: 11/30/2021 COMPARISON: NONE CLINICAL HISTORY: 81 years year old Female. ICD-10 CODE: Z78.0 ASYMPTOMATIC MENOPAUSAL Height: 5 FT Weight: 161 FRAX RISK QUESTIONS: Alcohol (3 or more units per day): NO Family History (Parent hip fracture): NO Glucocorticoids (More than 3mos): NO (Ex: prednisone, prednisolone, methylprednisolone, dexamethasone, and hydrocortisone). History of Fracture in Adulthood: NO Secondary Osteoporosis: 1. Type 1 Diabetes: NO 2. Hyperthyroidism: NO 3. Menopause before 45: NO 4. Malnutrition: 5. 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 Bone mineral density as measured about the Lumbar spine is: ----- L1-L4(G/cm2): 1.171 T Score Values are as follows: ----- L1: -0.8 ----- L2: -0.8 ----- L3: 0.4 ----- L4: 0.8 ----- L1-L4: -0.1 Bone mineral density has: INCREASED 5.8 % since study of: 2018 Bone mineral density about the R hip (g/cm2): 0.821 Bone mineral density about the L hip (g/cm2): 0.773 T Score values are as follows: -----R Neck: -1.6 -----L Neck: -1.9 -----R Total: -1.8 -----L Total: -1.1 Bone mineral density has: DECREASED -4.1 % since study of: 2018 FRAX%s: The graph provided illustrates a 14.6 % chance for a major osteoporotic fx and a 4.3 % chance for the hips probability for fx in 10 years time. IMPRESSION: Osteopenia bilateral femora NOTE: T-SCORE=SD OF THE YOUNG ADULT MEAN.
--- NOTE | 2021-12-01 11:20 | MM ---
Reason for Exam: Screening (asymptomatic). Last mammogram was performed 3 year(s) and 2 month(s) ago. Patient History: Menarche at age 9. First Full-Term at age 19. Hysterectomy at age 30. Postmenopausal. Estrogen for 5 years from age 30 until age 35. Paternal grandmother had breast cancer at or over age 50. Risk Values: Jordyn 5 year model risk: 1.5%. NCI Lifetime model risk: 2.1%. Prior Study Comparison: 09/04/2016 Bilateral Screening Mammogram, [facility]. 10/01/2017 Bilateral Screening Mammogram, [facility]. 10/04/2018 Bilateral Screening Mammogram, [facility]. Tissue Density: The breast tissue is extremely dense which could obscure a lesion on mammography. Findings: Analyzed By CAD. There is no suspicious group of microcalcifications or new suspicious mass in either breast. Overall Assessment: Benign, BI-RAD 2 Management: Screening Mammogram of both breasts in 1 year. A clinical breast exam by your physician is recommended on an annual basis and results should be correlated with mammographic findings. Electronically signed and approved by: Andrés Calero M.D. Radiologis
== END | disposition home or self-care (01) ==
LOC: RADMAMWWP 12:34
PROVIDERS: ATTEND Family Medicine
DX: Z12.31 Encounter for screening mammogram for malignant neoplasm of breast (principal); Z78.0 Asymptomatic menopausal state
CPT/HCPCS: 77063; 77067; 77080

== ENCOUNTER 2021-12-06 12:20 | Day surgery (SDC) | payer MEDICARE ==
[2021-12-02 14:06] VITALS: BMI 29.2
[~2021-12-06 12:20] MED LIST changes: -LACTATED RINGERS 1,000 ML IV SCH; +LIDOCAINE 1% (10MG/ML) FOR IV START INTRADERMA PRN
[2021-12-06 13:32] VITALS: RESP 16; TEMP 97.1
[2021-12-06] MEDS: LACTATED RINGERS 1,000 ML IV SCH ×2 (13:44→14:11)
[2021-12-06] MEDS ORDERED: methylPREDNISolone ACETATE 40 MG/ML 1 ML VIAL ONE (14:12)
[2021-12-06] MEDS ORDERED: fentaNYL (PF) 50 MCG/ML 2 ML AMP ONE (14:12)
[2021-12-06] MEDS ORDERED: ROPIVACAINE 5MG/ML 20ML VIAL ONE (14:12)
[2021-12-06] MEDS ORDERED: MIDAZOLAM 2 MG/2 ML VIAL ONE (14:12)
--- NOTE | 2021-12-06 14:26 | P.PCN ---
Date of Procedure: 12/06/21 Procedure(s) Performed: Procedure= bilateral sacroiliac joints steroid injection under fluoroscopy guidance (fluoroscopy image stored on file in the radiology Department ) Preoperative diagnosis= 1-sacroiliitis 2-lumbar degenerative disc disease 3- lumbar facet arthropathy Postoperative diagnosis=Same as preop Diagnosis . Complication = none Condition= stable Anesthesia= moderate sedation with intravenous Versed 1 mg , and fentanyl 50 micrograms . Indication for the procedure= patient complaining of low back pain , examination was positive for severe tenderness over the sacroiliac joints bilaterally and patient diagnosed with sacroiliitis, for this reason , she was good candidate for sacroiliac joint steroid injection. Description of the procedure= procedure risk and benefits discussed with the patient, including but not limited, risk of infection and bleeding, and ALLERGIC reaction to the medication and not complete pain relief and patient agreed with the preceding patient taken to the operating room, placed in prone position or standard monitors applied to the patient then after induction of anesthesia back prepped with chlorhexidine 3 times , Then under strict sterile technique, first I did the right sacroiliac joint the which was identified under fluoroscopy guidance been local infiltration of the skin and subcu interstitial with lidocaine 1% then 22-gauge Quincke Needle advanced slowly under fluoroscopy and placed in the right sacroiliac joint needle placement confirmed with AP and oblique and lateral view and after appropriate needle placement confirmed and after negative aspiration, or heme , then Ropivacaine 0.5% 4 mL, and 20 mg of Depo-Medrol mixed together and injected in the right sacroiliac joint after negative aspiration patient tolerated the procedure well without any complication. Then the left sacroiliac joint steroid injection done under strict sterile technique local infiltration of the skin and subcu interstitial at the location of the left sacroiliac joint then a 22-gauge Quincke Needle advanced slowly under fluoroscopy time placed in the left sacroiliac joint, needle placement confirmed with AP and oblique and lateral view then after appropriate needle placement confirmed and after negative aspiration 0.5% Ropivacaine 4 mL and 20 mg of Depo-Medrol injected in the left sacroiliac joint after negative aspiration patient tolerated the procedure well that any complications and she will follow up in clinic 3 weeks note= patient was scheduled to have right side sacroiliac joint steroid injection, but in the preop holding area reexamined the patient initially the patient had bilateral symptoms , exam showed the patient had positive distraction test bilaterally and positive sacroiliac joint compression test was positive bilaterally, seated flexion test was positive bilaterally, for this reason I discussed with the patient the option of doing bilateral sacroiliac joint steroid injection and she agreed, and we get approval from her insurance to do bilateral sacroiliac joint steroid injection
[2021-12-06] MEDS ORDERED: IV FLUID CONTINUATION 700 ML IV ONE (14:30)
--- NOTE | 2021-12-06 14:33 | FL ---
EXAMINATION TYPE: FL guided pain mgmt statistic DATE OF EXAM: 12/06/2021 HISTORY: Fluoroscopy time 3 seconds of fluoroscopy provided. IMPRESSION: 1. Fluoroscopy time.
[2021-12-06 14:48] VITALS: BP 127/66; PULSE 57
== END 2021-12-06 15:03 | disposition home or self-care (01) ==
LOC: ORPAIN 12:20
PROVIDERS: ATTEND Specialist
DX: M46.1 Sacroiliitis, not elsewhere classified (principal); M51.36 Other intervertebral disc degeneration, lumbar region; M47.816 Spondylosis without myelopathy or radiculopathy, lumbar region
CPT/HCPCS: J2250; J1030; J3010; J2795; G0260; 27096; 99152

== ENCOUNTER → 2021-12-22 | Outpatient (CLI) | payer MEDICARE ==
[2021-12-22 14:22] VITALS: BP 184/74; PULSE 62; RESP 18; TEMP 98.1
--- NOTE | 2021-12-22 14:22 | P.PAINPG ---
PQRS Measure Charge Sheet Comment: A 81 yr old female with a history of severe and chronic low back pain secondary to lumbar degenerative disc diseases and lumbar spondylosis with facet arthropathy presents today for evaluation s/p BL SI joint injection. She states she experienced 0% pain relief s/p procedure. Pain level is 10/10 in intensity, constant, sharp/ burning for years and shooting towards the lower portion of the buttocks. Pain is provoked by standing/walking for periods of 10 min or more or by laying supine. Pain is alleviated with PT in September 2020 without relief, heat, medications (Aleve, Tylenol OTC), home stretching regimen, sittting, laying supine w LEs elevated, repositioning and rest. Interventional pain procedures completed include BL SI injection Patient is currently on Tylenol, Aleve OTC Patient denies any side effects of the medication(s), denies excessive drowsiness or sleepiness, denies suicidal ideation and reports that the current pain medication is helping to control the pain and improve activities of daily living. Patient denies any motor or sensory deficits. Patient denies any fever or night sweats, denies any change in the bowel movements or urination. Physical Examination: -Constitutional: Cooperative. Not in acute distress . - Neurologic: Cranial nerve II to XII intact. No focal neurological deficits. - Psychatric: Alert & oriented x 3. Matching mood & appropriate affect. Judgment and insight intact. - Musculoskeletal: Cervical spine: Muscle bulk/ tone/ strength in the bilateral upper extremities normal Vertebral body tenderness to palpation over Spurling test positive Distraction test positive Facet loading test positive Thoracic spine Muscle bulk / tone/ strength in the bilateral paraspinal muscles normal Vertebral body tender to palpation over Facet loading test positive Lumbar spine: Motor bulk/ tone/ strength lower extremities , thigh and legs : 5/5 Deep tendon reflexes : Normal Knee Jerk. Normal Ankle Jerk . Vertebral body tenderness to palpation over L5 Lumbar Facet Loading Test positive Straight Leg Raise: positive at 30 degrees right side/ left side Gaenslen's Test positive Sacral spine : Severe tenderness over the Sacroiliac joint: right side / left side Range of motion: Flexion of the lumbar spine <60 degrees Range of motion: Extension of the lumbar spine <20 degrees Gaenslen's Test positive Osmar's Test positive Mary test: positive right side / left side Thigh Thrust Test Sacral Thrust Test Assessment and plan: Chronic low back pain secondary to lumbar degenerative disc disease , lumbar spondylosis with facet arthropathy without myelopathy Recommendation of Caudal STEPHON. May need a series of injections, up to 4 within a 1 yr period, for optimal pain relief. Risks, benefits of procedure discussed and pt verbalized understanding. Denies anticoagulant use or medical history of diabetes. All patient questions answered MAPS reviewed and it was appropriate. Prescription for Zanaflex 4mg TID prn spasms #60 w 1 refill I have spent less than 30 minutes on patient care today. Dr Thorne was availab le by phone for the evaluation of this patient. The time was used to review the medical records including relevant urine studies and Prescription history (MAPs), review of the available imaging, evaluation and examination of the patient, coordination of care with the medical staff and if applicable referring physicians, as well as creation of the medical record PQRS Narrative: Smoking Status Never smoker Hx Alcohol Use (MH) No Home Medications: Ambulatory Orders Metoprolol Succinate [Toprol XL] 200 mg PO QAM 11/12/13 Naproxen Sodium [Aleve] 220 tab PO DAILY PRN 03/25/14 Enalapril/Hydrochlorothiazide [Vaseretic 10-25 mg] 1 each PO DAILY 11/30/15 Red Yeast Rice 600 mg PO DAILY 09/25/16 Turmeric Root Extract [Turmeric] 500 mg PO DAILY 10/11/20 Acetaminophen [Tylenol Extra Strength] 500 - 1,000 mg PO DIRECTED PRN 08/08/21 tiZANidine HCL [Zanaflex] 4 mg PO TID PRN 30 Days #60 capsule 12/22/21 Controlled Substance Measures - Controlled Substance Measures Is patient prescribed a controlled substance at discharge?: No
== END | disposition home or self-care (01) ==
LOC: PNWHC3 13:24
PROVIDERS: ATTEND Specialist
DX: M51.36 Other intervertebral disc degeneration, lumbar region (principal); M47.896 Other spondylosis, lumbar region; M46.96 Unspecified inflammatory spondylopathy, lumbar region
CPT/HCPCS: 99211

== ENCOUNTER 2022-01-26 12:15 | Day surgery (SDC) | payer MEDICARE ==
[2022-01-24 14:48] VITALS: BMI 31.2
[~2022-01-26 12:15] MED LIST changes: +LACTATED RINGERS 1,000 ML IV SCH
[2022-01-26 12:44] VITALS: TEMP 97.3
[2022-01-26] MEDS ORDERED: IOPAMIDOL M200 10 ML VIAL ONE (13:11)
[2022-01-26] MEDS ORDERED: fentaNYL (PF) 50 MCG/ML 2 ML AMP ONE (13:11)
[2022-01-26] MEDS ORDERED: MIDAZOLAM 2 MG/2 ML VIAL ONE (13:11)
[2022-01-26] MEDS ORDERED: methylPREDNISolone ACETATE 40 MG/ML 1 ML VIAL ONE (13:11)
--- NOTE | 2022-01-26 13:25 | P.PCN ---
Date of Procedure: 01/26/22 Procedure(s) Performed: PREOPERATIVE DIAGNOSIS: 1-lumbar Degenerative disc Disease. 2-Lumbar spondy losis, 3-Sacroiliitis. POSTOPERATIVE DIAGNOSIS: same as pre op diagnosis. PROCEDURE: 1. Caudal epidural steroid injection under fluoroscopic guidance. (Fluoroscopy images available in the radiology department ) 2. Caudal epidurogram ANESTHESIA: Local with 1% lidocaine; 5ml for subcutaneous infiltrations and IV versed mg ,and fentanyl mcg Sedation start time: 1315 . Sedations stop time : 1321 EBL: None. PROCEDURE INDICATION: The patient with neuropathic pain radiating distally returns for caudal epidural steroid injection. PROCEDURE DESCRIPTION: The patient was seen and identified in the preoperative area. Risks, benefits, complications, and alternatives were discussed with the patient. The patient agreed to proceed with the procedure and signed the consent. IV was started, and vital signs were stable. Patient was taken to the OR and time out was completed. The patient was placed in the prone position on procedure table and a pillow was placed under the abdomen to reduce lumbar lordosis. The lumbosacral area was prepped and draped in the usual sterile fashion. Critical pause was taken. Vital signs were closely monitored during the procedure. Using lateral fluoroscopy the anterior-posterior plates of the sacrum were identified and the skin and deeper tissues corresponding into sacrococcygeal ligament were anesthetized using approximately 3 mL of 1% lidocaine. Then under fluoroscopy, a 3-1/2-inch 20-gauge Tuohy epidural needle was guided through the sacrococcygeal ligament, and into the epidural space. After negative aspiration, a 2 mL of Isovue 200 contrast dye was injected with excellent epidurogram. Again after negative aspiration for CSF, blood, and with no paresthesias, then Depo-Medrol 40mg, 2ml of 1% preservative free Lidocaine with 6 ml of preservative free normal saline(total of 10ml)solution was injected with washout of epidurogram. Needle was withdrawn intact. Skin was cleansed, and bandage was applied. COMPLICATIONS: None DISPOSITION / PLANS: The patient was placed in a supine position and transferred to the recovery area in a stable condition for observation and was discharged from the recovery room after meeting discharge criteria. Home discharge instructions given to the patient by the staff. The patient was reexamined prior to discharge. The patient will schedule a follow up in the clinic in 2-4 weeks.
[2022-01-26] MEDS ORDERED: IV FLUID CONTINUATION 1,000 ML IV ONE ×2 (13:28)
[2022-01-26 13:31] VITALS: RESP 18
[2022-01-26 13:51] VITALS: BP 109/66; PULSE 59
--- NOTE | 2022-01-26 14:32 | FL ---
EXAMINATION TYPE: FL guided pain mgmt statistic DATE OF EXAM: 01/26/2022 HISTORY: Fluoroscopy time 5 seconds of fluoroscopy provided. IMPRESSION: 1. Fluoroscopy time.
== END 2022-01-26 14:06 | disposition home or self-care (01) ==
LOC: ORPAIN 12:15
PROVIDERS: ATTEND Specialist
DX: M51.36 Other intervertebral disc degeneration, lumbar region (principal); M54.50 Low back pain, unspecified; M47.816 Spondylosis without myelopathy or radiculopathy, lumbar region; M46.1 Sacroiliitis, not elsewhere classified; Z88.5 Allergy status to narcotic agent; Z88.8 Allergy status to other drugs, medicaments and biological substances; Z79.899 Other long term (current) drug therapy; Z80.9 Family history of malignant neoplasm, unspecified
CPT/HCPCS: 62323; J2250; J1030; J3010; Q9966

== ENCOUNTER → 2022-02-16 | Outpatient (CLI) | payer MEDICARE ==
[2022-02-16 14:04] VITALS: BP 158/72; PULSE 65; RESP 18
--- NOTE | 2022-02-16 14:08 | P.PN ---
Subjective Progress Note Date: 02/16/22 This is an 81-year-old lady with history of chronic lower back pain with r adiation to the lower extremities bilaterally down to the ankles with occasional numbness and tingling in the legs. The patient denies any weakness or bowel or bladder problems. She gets good results from caudal epidural steroid injection usually even though she did not have any surgeries on her back. The patient feels that her pain is coming back again. Patient denies new-onset weakness, bowel/bladder incontinence, or any other signs or symptoms of cauda equina syndrome. There are no signs of acute intoxication, and no indications of medication diversion or overuse. In addition to above, 13-point review of systems is also negative for chest pain, shortness of breath, changes in vision, changes in hearing, new onset weakness, abdominal pain, diarrhea, extreme fatigue, malaise, fever, skin changes, homicidal or suicidal ideation, or bowel or bladder incontinence. Vital Signs: Reviewed in EMR Gen: AAOx3, NAD HEENT: PERRLA,hearing grossly normal Pulm: resp unlabored Neck: supple, trachea midline Neuro exam of the lower extremities: Normal muscle strength in the lower extremities bilaterally Straight leg raising test: Osmar's test: Range of motion of the lumbar spine: Facet loading test: Tenderness in the paravertebral musculature: Positive tenderness in the lumbar paravertebral musculature bilaterally Neuro: CN II-XII grossly intact, Imaging: Reviewed in EMR/chart Assessment: Lumbar stenosis Lumbar DDD Plan: 1. Explanation: When patients on opioids, opioid and psychological risk scores were reviewed. Diagnoses, prognoses, and multiple treatment options including but not limited to physical therapy, interventional therapies, adjuvant medical therapies, narcotic medication therapies, and surgery were discussed with the patient and all questions were answered to the patient's satisfaction. 2. Opioid agreement:When patients are prescribed opoids through our clinic, opioid agreement is signed with the patient and the patient is warned not to use opioids while driving or before driving and not to combine opioids with benzodiazepines or alcohol. 3. Counseling: When patient is smoking or obese, the patient was counseled extensively on SMOKING CESSATION, BODY MASS INDEX, EXERCISE. Specifically, the patient was instructed regarding the importance of smoking cessation, obesity, and exercise in the context of both chronic pain and overall health. 4. Procedures: The patient will benefit from getting one last caudal epidural steroid injection under fluoroscopic guidance 5. Consultations: None 6. Investigations: None 7. Medications: None prescribed today 8. Disposition: Proceed with the above-mentioned procedure as soon as possible 9. Maps were reviewed and were appropriate. Objective - Vital Signs Vital signs: Vital Signs Temp Pulse 65 02/16/22 14:00 Resp 18 02/16/22 14:00 BP 158/72 02/16/22 14:00 Pulse Ox 98 02/16/22 14:00 FiO2 Intake & Output 02/15/22 02/16/22 02/16/22 18:59 06:59 18:59 Weight 72.575 kg
== END ==
LOC: PNWHC3 13:18
PROVIDERS: ATTEND Anesthesiology
DX: M48.061 Spinal stenosis, lumbar region without neurogenic claudication (principal); M51.36 Other intervertebral disc degeneration, lumbar region; Z88.5 Allergy status to narcotic agent; Z88.8 Allergy status to other drugs, medicaments and biological substances
CPT/HCPCS: 99211

== ENCOUNTER → 2022-05-08 | Outpatient (CLI) | payer MEDICARE ==
[2022-05-08 13:48] VITALS: BP 160/71; PULSE 62; RESP 18; TEMP 98.8
--- NOTE | 2022-05-08 15:39 | P.PAINPG ---
PQRS Measure Charge Sheet Comment: A 82 yr old female with a history of severe and chronic low back pain secondary to lumbar DDD and spondylosis with facet arthropathy without myelopathy and BL Sacroiliitis presents today for evaluation s/p Caudal STEPHON. Pt states she experienced 75% pain relief x 2 wks s/p procedure. Pain level is currently at 9/10 in intensity, constant, localized in ananda lower lumbar spine, achy/ sharp in charcter w shooting towards BL glutes and BLEs. Pain is provoked by standing/ walking for periods of 10 min or more. Pain is alleviated with PT in the past, home exercise regimen as tolerated, heat, meds (Aleve), repositioning and rest. Interventional pain procedures completed include Caudal STEPHON, BL SI injections Patient is currently on Aleve OTC Patient denies any side effects of the medication(s), denies excessive drowsiness or sleepiness, denies suicidal ideation and reports that the current pain medication is helping to control the pain and improve activities of daily living. Patient denies any motor or sensory deficits. Patient denies any fever or night sweats, denies any change in the bowel movements or urination. Physical Examination: -Constitutional: Cooperative. Not in acute distress . - Neurologic: Cranial nerve II to XII intact. No focal neurological deficits. - Psychatric: Alert & oriented x 3. Matching mood & appropriate affect. Judgment and insight intact. - Musculoskeletal: Cervical spine: Muscle bulk/ tone/ strength in the bilateral upper extremities normal Vertebral body tenderness to palpation over Spurling test positive Distraction test positive Facet loading test positive Thoracic spine Muscle bulk / tone/ strength in the bilateral paraspinal muscles normal Vertebral body tender to palpation over Facet loading test positive Lumbar spine: Motor bulk/ tone/ strength lower extremities , thigh and legs : 5/5 Deep tendon reflexes : Normal Knee Jerk. Normal Ankle Jerk . Vertebral body tenderness to palpation over Lumbar Facet Loading Test positive Straight Leg Raise: positive at 30 degrees right side/ left side Gaenslen's Test positive Sacral spine : Severe tenderness over the Sacroiliac joint: right side / left side Range of motion: Flexion of the lumbar spine <60 degrees Range of motion: Extension of the lumbar spine <20 degrees Gaenslen's Test positive BL Mary test: positive right side / left side Thigh Thrust Test L>R BL Sacral Thrust Test Assessment and plan: Chronic low back pain secondary to lumbar DDD, spondylosis with facet arthropathy without myelopathy, BL Sacroiliitis Recommendation of BL SI injection. May need a series , up to every 3 mo if needed, for optimal pain relief. Risks, benefits of procedure discussed and pt verbalized understanding. Admits to anticoagulant use or medical history of diabetes. Protocol for discontinuation/ continuation of medications parrish procedure discussed. All patient questions answered I have spent less than 30 minutes on patient care today. Dr Thorne was available by phone for the evaluation of this patient. The time was used to review the medical records including relevant urine studies and Prescription history (MAPs), review of the available imaging, evaluation and examination of the patient, coordination of care with the medical staff and if applicable referring physicians, as well as creation of the medical record - Pain Location Lower Back Non-Pharmacological Interventions: Heat, Home Exercise, Inactivity, Physical Therapy, Position/Reposition, Stretching Pharmacological Interventions: Epidural, PRN Medication PQRS Narrative: Smoking Status Never smoker Hx Alcohol Use (MH) No Home Medications: Ambulatory Orders Metoprolol Succinate [Toprol XL] 200 mg PO QAM 11/12/13 Naproxen Sodium [Aleve] 220 tab PO WEEKLY PRN 03/25/14 Enalapril/Hydrochlorothiazide [Vaseretic 10-25 mg] 1 each PO DAILY 11/30/15 Red Yeast Rice 600 mg PO DAILY 09/25/16 Turmeric Root Extract [Turmeric] 500 mg PO DAILY 10/11/20 Acetaminophen [Tylenol Extra Strength] 500 - 1,000 mg PO DIRECTED PRN 08/08/21 Controlled Substance Measures - Controlled Substance Measures Is patient prescribed a controlled substance at discharge?: No
== END ==
LOC: PNWHC3 13:21
PROVIDERS: ATTEND Specialist
DX: M47.816 Spondylosis without myelopathy or radiculopathy, lumbar region (principal); M51.36 Other intervertebral disc degeneration, lumbar region; G89.29 Other chronic pain; M46.1 Sacroiliitis, not elsewhere classified; Z79.01 Long term (current) use of anticoagulants; E11.9 Type 2 diabetes mellitus without complications; Z88.5 Allergy status to narcotic agent; Z88.8 Allergy status to other drugs, medicaments and biological substances; Z79.84 Long term (current) use of oral hypoglycemic drugs
CPT/HCPCS: 99211

== ENCOUNTER 2022-06-08 09:01 | Day surgery (SDC) | payer MEDICARE ==
[2022-06-08] MEDS: LACTATED RINGERS 1,000 ML IV SCH ×2 (09:12→09:24)
[2022-06-08 09:17] VITALS: RESP 16; TEMP 97.2
[2022-06-08] MEDS ORDERED: MIDAZOLAM 2 MG/2 ML VIAL ONE (09:26)
[2022-06-08] MEDS ORDERED: fentaNYL (PF) 50 MCG/ML 2 ML AMP ONE (09:26)
[2022-06-08] MEDS ORDERED: ROPIVACAINE 5 MG/ML 20 ML AMPULE ONE (09:26)
[2022-06-08] MEDS ORDERED: IOPAMIDOL M200 10 ML VIAL ONE (09:26)
[2022-06-08] MEDS ORDERED: TRIAMCINOLONE ACETONIDE 40 MG/ML 1 ML VIAL ONE (09:26)
--- NOTE | 2022-06-08 09:39 | P.PCN ---
Date of Procedure: 06/08/22 Description of Procedure: Preoperative diagnoses: 1. Lumbosacral Spondylosis 2. Bilateral sacroiliitis. Postoperative diagnoses: Same as preoperative diagnosis. Procedure: Bilateral sacroiliac joint steroid injection under fluoroscopic guidance. Surgeon: Kuldeep Quiroz M.D. Anesthesia: Conscious sedation with Versed 2 mg and fentanyl 100 micrograms and local infiltration with lidocaine 1% 4 ml EBL: None Fluoroscopy image saved and stored in the electronic medical records Procedure indication: The patient had a history of severe chronic low back pain, diagnosed with sacroiliitis and lumbar sacral facet arthropathy unresponsive to conservative treatment. Procedure description: The patient was seen and identified in the preoperative holding area, risks and benefits and alternative of the procedure and possible complications discussed with the patient, and he agreed with the preceding, patient signed the consent, an IV was started, and vital signs were monitored and were stable throughout the procedure, patient was placed in the prone position or table and the lumbosacral area was prepped and draped with a sterile fashion, vital signs were closely monitored during the procedure, the fluorosco py camera was placed in the contralateral oblique view on the right sacroiliac joint and the lower part of the joint was identified a 2 mL then a 25-gauge Quincke-type spinal needle advanced slowly under fluoroscopy and placed in the posterior and inferior border of the right sacroiliac joint, placement confirmed with AP and lateral view, and after appropriate needle placement confirmed and after negative aspiration for heme and CSF and there was , 3 ml of ropivacaine 0.5% and 40 mg of Kenalog injected after negative aspiration, no paresthesia during the injection, no resistance to injection, and the needle was removed. The entire same procedure was repeated for the left sacroiliac joint Patient tolerated the procedure well without any complication. The patient returned to supine position after the back was cleaned and a Band- Aid applied, the patient transported to recovery room in stable condition and he was monitored for 30 minutes before he was discharged home and then patient was reexamined before going home and patient was discharged in stable condition and patient will follow up with the pain clinic in a few weeks
[2022-06-08] MEDS ORDERED: IV FLUID CONTINUATION 900 ML IV ONE (09:40)
[2022-06-08 09:42] VITALS: BP 150/73; PULSE 60
--- NOTE | 2022-06-08 10:13 | FL ---
Intraoperative/procedural fluoroscopic services were provided. Total fluoroscopy time is 10 seconds w ith a total of 2 submitted images to PACS. Please see the operative/procedural note for further detai ls.
== END 2022-06-08 10:12 | disposition home or self-care (01) ==
LOC: ORPAIN 09:01
PROVIDERS: ATTEND Anesthesiology
DX: M46.1 Sacroiliitis, not elsewhere classified (principal); M47.817 Spondylosis without myelopathy or radiculopathy, lumbosacral region; Z88.5 Allergy status to narcotic agent
CPT/HCPCS: J2250; J3301; J3010; Q9966; J2795; G0260

== ENCOUNTER → 2022-06-29 | Outpatient (CLI) | payer MEDICARE ==
--- NOTE | 2022-06-29 14:58 | P.PAINPG ---
PQRS Measure Charge Sheet Comment: A 82 yr old female with a history of severe and chronic low back pain secondary to lumbar DDD and spondylosis with facet arthropathy without myelopathy presents today for evaluation s/p BL SI injections. Pt states she experienced 50 % pain relief x 3 wks s/p procedure. Pain level is provoked at 7 /10 in intensity, constant, localized in the center lumbosacral spine, sore in character w shooting towards the BL glutes. Pain is provoked by walking/ standing/ bending for periods of 10 min or more. Pain is alleviated with PT x 3 episodes, heat, meds (Aleve OTC), massage therapy as needed, laying supine, reclining, repositioning and rest. Interventional pain procedures completed include BL SI injection Patient is currently on Aleve Otc Patient denies any side effects of the medication(s), denies excessive drowsiness or sleepiness, denies suicidal ideation and reports that the current pain medication is helping to control the pain and improve activities of daily living. Patient denies any motor or sensory deficits. Patient denies any fever or night sweats, denies any change in the bowel movements or urination. Physical Examination: -Constitutional: Cooperative. Not in acute distress . - Neurologic: Cranial nerve II to XII intact. No focal neurological deficits. - Psychatric: Alert & oriented x 3. Matching mood & appropriate affect. Judgment and insight intact. - Musculoskeletal: Cervical spine: Muscle bulk/ tone/ strength in the bilateral upper extremities normal Vertebral body tenderness to palpation over Spurling test positive Distraction test positive Facet loading test positive Thoracic spine Muscle bulk / tone/ strength in the bilateral paraspinal muscles normal Vertebral body tender to palpation over Facet loading test positive Lumbar spine: Motor bulk/ tone/ strength lower extremities , thigh and legs : 5/5 Deep tendon reflexes : Normal Knee Jerk. Normal Ankle Jerk . Vertebral body tenderness to palpation over Lumbar Facet Loading Test positive Straight Leg Raise: positive at 30 degrees right side/ left side Gaenslen's Test positive Sacral spine : Severe tenderness over the Sacroiliac joint: right side / left side Range of motion: Flexion of the lumbar spine <60 degrees Range of motion: Extension of the lumbar spine <20 degrees Gaenslen's Test positive BL Mary test: positive right side / left side Thigh Thrust Test L & R Sacral Thrust Test Assessment and plan: Chronic low back pain secondary to lumbar degenerative disc disease, spondylosis with facet arthropathy without myelopathy Referral to Behavioral Health re: PNS trial Dx G89.4, M54.1. May return to the clinic for a re evaluation in 4 wks. All patient questions answered I have spent less than 30 minutes on patient care today. Dr Thorne was available by phone for the evaluation of this patient. The time was used to review the medical records including relevant urine studies and Prescription history (MAPs), review of the available imaging, evaluation and examination of the patient, coordination of care with the medical staff and if applicable referring physicians, as well as creation of the medical record PQRS Narrative: Smoking Status Never smoker Hx Alcohol Use (MH) No Home Medications: Ambulatory Orders Metoprolol Succinate [Toprol XL] 200 mg PO QAM 11/12/13 Naproxen Sodium [Aleve] 220 tab PO DIRECTED PRN 03/25/14 Enalapril/Hydrochlorothiazide [Vaseretic 10-25 mg] 1 each PO DAILY 11/30/15 Red Yeast Rice 600 mg PO DAILY 09/25/16 Turmeric Root Extract [Turmeric] 500 mg PO DAILY 10/11/20 Acetaminophen [Tylenol Extra Strength] 500 - 1,000 mg PO DIRECTED PRN 08/08/21 Controlled Substance Measures - Controlled Substance Measures Is patient prescribed a controlled substance at discharge?: No
[2022-06-29 15:39] VITALS: BP 152/67; PULSE 57; RESP 18; TEMP 98.3
== END ==
LOC: PNWHC3 13:18
PROVIDERS: ATTEND Specialist
DX: M47.816 Spondylosis without myelopathy or radiculopathy, lumbar region (principal); M51.36 Other intervertebral disc degeneration, lumbar region; Z88.5 Allergy status to narcotic agent; Z88.8 Allergy status to other drugs, medicaments and biological substances
CPT/HCPCS: 99211

== ENCOUNTER 2022-09-01 12:19 | Day surgery (SDC) | payer MEDICARE ==
[2022-09-01 12:49] VITALS: TEMP 97.9
[2022-09-01] MEDS ORDERED: MIDAZOLAM 2 MG/2 ML VIAL ONE (14:00)
[2022-09-01] MEDS ORDERED: fentaNYL (PF) 50 MCG/ML 2 ML AMP ONE (14:00)
[2022-09-01] MEDS ORDERED: SODIUM CHLORIDE 0.9% 50 ML with ceFAZolin 1,000 MG IV ONE ×2 (14:15)
[2022-09-01] MEDS ORDERED: LIDOCAINE 2%-EPI 1:100,000 20 ML VIAL SQ ONE ×2 (14:20)
--- NOTE | 2022-09-01 15:35 | FL ---
Intraoperative/procedural fluoroscopic services were provided for trial pain pump insertion. The 2 le ads appear to terminate at superior endplate of T8. Total fluoroscopy time is 9 minutes 56 seconds wi th a total of 1 submitted image to PACS. Total DAP 39.933 Gycm2. Please see the operative note for fu rther details.
[2022-09-01 16:10] VITALS: BP 167/82; PULSE 59; RESP 17
--- NOTE | 2022-09-01 16:58 | P.PCN ---
Date of Procedure: 09/01/22 Procedure(s) Performed: PROCEDURES: 1- spinal cord stimulator trial under fluoroscopic guidance X2 lead (Fluoroscopy images stored on file in radiology department ) 2- complex programing of the spinal cord stimulator. PREOPERATIVE DIAGNOSIS: 1-lumbar spondylosis with lumbar facet arthropathy without myelopathy. 2-lumbar degenerative disc disease. 3-sacroiliitis POSTOPERATIVE DIAGNOSIS: 1-same as preoperative diagnoses ANESTHESIA: Monitored anesthesia care as per anesthesia department BLOOD LOSS: Minimal. COMPLICATIONS: None. PROCEDURE INDICATIONS: The patient with a history of severe intractable low back pain who failed more conservative treatment measures. Patient had multiple pain interventions procedure and she got short-term benefit from it, patient was a candidate for spinal cord stimulator and she had the psychological testing done and showed that there is no contraindication for the spinal cord stimulator, patient is not interested in having any lumbar surgery PROCEDURE DESCRIPTION: The patient was seen and identified in the preoperative area. Risks, benefits, complications, and alternatives were discussed with the patient. The patient agreed to proceed with the procedure and signed the consent. IV was started.Patient was taken to the operating room and time out was performed. She received 2 gram of IV for prophylactic antibitics before the start of the procedure. The Thoracic and lumbar areas were prepped with Druaprep x2 and draped in the usual sterile fashion. Using sterile gowns and gloves, and after covering the fluoroscopic camera with a sterile drape, the procedure was proceeded on with. The fluoroscopic camera was placed in the AP position, and the T2-T3 interlaminar space was identified and localized in the left paramedian trajectory with 2% lidocaine. Under fluoroscopic guidance, a 14 gauge Tuohy epidural needle from the [employer] spinal co rd stimulator kit was guided into the interlaminar space. Then using the right oblique fluoroscopy, anterior-posterior fluoroscopy, and jkct-jh-wptfukjlzn technique, the epidural space was accessed. The first lead (8 contacts leads from [employer] ) was passed and noted to be in the dorsal portion of the epidural space in the lateral view. Then using anterior-posterior view, the first lead was passed up to the top of T8 vertebra. Subsequently, a second 14 gauge Tuohy epidural needle was inserted just posterior to the first needle and was advanced toward the epidural space in a parallel direction to the first needle. Then using lateral fluoroscopy, anterior-posterior fluoroscopy, and odgc-mo-psbszyorsf technique, the epidural space was accessed by the second needle into the same interlaminar space as the first needle. Then a second similar lead was passed and noted to be in the dorsal portion of the epidural space in the lateral view. Then using anterior- posterior view, the second lead was passed up to the top of T 8 vertebra, and was left in a parallel position to the first lead. Subsequently, the leads were tested and they gave good stimulation on the low back area and the lower extremi ty , then after that the needle was removed and both legs secured using 2-0 silk, and then the dressing applied durind the procedure ,we performed complex programing of the spinal cord stimulator ,we changed pulse width ,amplitude and the frequencey of the stimulation and we got good coverage for the painful area ,the parasthesia overlaped the painfull area ,patients was satesfied withe the stimulation ,we got more than 80 % decrease in the pain level COMPLICATIONS: No acute complications. COMMENTS: Each lead used had 8 contacts with a total of 16 contacts used. DISPOSITION / PLANS: The patient was placed in a supine position and transferred to the recovery area in a stable condition for observation. There was no evidence of lower extremity motor or sensory deficit after the procedure. Shoaib sood was discharged from the recovery room after meeting discharge criteria. Home discharge instructions were given to the patient by the staff. The patient was reexamined prior to discharge.
== END 2022-09-01 16:30 | disposition home or self-care (01) ==
LOC: ORPAIN 12:19
PROVIDERS: ATTEND Specialist
DX: M51.36 Other intervertebral disc degeneration, lumbar region (principal); M47.816 Spondylosis without myelopathy or radiculopathy, lumbar region; M46.1 Sacroiliitis, not elsewhere classified; I10 Essential (primary) hypertension; E78.5 Hyperlipidemia, unspecified; G62.9 Polyneuropathy, unspecified; Z88.5 Allergy status to narcotic agent; Z88.8 Allergy status to other drugs, medicaments and biological substances; Z79.899 Other long term (current) drug therapy
CPT/HCPCS: 63650; C1897; 84132

== ENCOUNTER → 2022-09-08 | Outpatient (CLI) | payer MEDICARE ==
[2022-09-08 11:16] VITALS: BP 160/83; PULSE 67; RESP 18; TEMP 98
--- NOTE | 2022-09-08 11:59 | P.PN ---
Progress Note - Text Progress Note Date: 09/08/22 At this is follow-up visit for this 82 years old female with a chronic history of severe low back pain, these diagnosed with lumbar degenerative disc disease and lumbar spondylosis with lumbar facet arthropathy and sacroiliitis, last week we have done spinal cord stimulator trial, and I placed spinal cord stimulator leadsX2 , patient gets more than 75% improvement of her pain level and she reported that she was able to function better than before, she feels that the spinal cord stimulator trial was successful and she improved her quality of life, she denies any fever or night sweats, he denies any headache, and she wanted to proceed with the permanent implant of the spinal cord stimulator, risks and benefits of the procedure discussed with the patient and she wanted to proceed with the permanent implant, today I removed the spinal cord stimulator leads and a sterile technique, the dressing applied and the patient will follow up in the pain clinic the day of the procedure which will be spinal cord stimulator implantation, the generator implant.
== END ==
LOC: PNWHC3 10:38
PROVIDERS: ATTEND Anesthesiology
DX: M51.36 Other intervertebral disc degeneration, lumbar region (principal); M47.816 Spondylosis without myelopathy or radiculopathy, lumbar region; G89.29 Other chronic pain; Z88.5 Allergy status to narcotic agent; Z88.8 Allergy status to other drugs, medicaments and biological substances
CPT/HCPCS: 99211

== ENCOUNTER 2022-11-10 10:20 | Day surgery (SDC) | payer MEDICARE ==
[2022-11-09 09:25] VITALS: BMI 30.4
[~2022-11-10 10:20] MED LIST changes: +DEXAMETHASONE SOD PHOSPHATE 4 MG/ML 1 ML VIAL IV ONE; -LIDOCAINE 1% (10MG/ML) FOR IV START INTRADERMA PRN; +ONDANSETRON 4 MG/2 ML VIAL IVP ONE; +fentaNYL (PF) 50 MCG/ML 2 ML AMP IV PRN
[2022-11-10 10:48] VITALS: TEMP 98
[2022-11-10] MEDS ORDERED: ONDANSETRON 4 MG/2 ML VIAL IVP ONE (11:02)
[2022-11-10] MEDS ORDERED: DEXAMETHASONE SOD PHOSPHATE 4 MG/ML 1 ML VIAL IVP ONE (11:02)
[2022-11-10] MEDS ORDERED: MIDAZOLAM 2 MG/2 ML VIAL ONE (11:20)
[2022-11-10] MEDS ORDERED: PROPOFOL 10 MG/ML 20 ML VIAL IV ONE (11:20)
[2022-11-10] MEDS ORDERED: fentaNYL (PF) 50 MCG/ML 2 ML AMP ONE (11:20)
[2022-11-10] MEDS ORDERED: LIDOCAINE 0.5%-EPI 1:200,000 50 ML VIAL SQ ONE ×2 (11:40→14:22)
[2022-11-10] MEDS ORDERED: LACTATED RINGERS 1,000 ML IV ONE (13:39)
--- NOTE | 2022-11-10 14:16 | FL ---
EXAMINATION TYPE: FL guidance operating room DATE OF EXAM: 11/10/2022 HISTORY: Fluoroscopy time Total dose area product (DAP) in uGy*m?, mGy*cm? (or similar): 0.775320 IMPRESSION: 1. Fluoroscopy time.
[2022-11-10 14:53] VITALS: BP 161/71; PULSE 66; RESP 14
--- NOTE | 2022-11-17 13:36 | P.PCN ---
Date of Procedure: 11/10/22 Procedure(s) Performed: myPROCEDURES: 1-spinal cord stimulator permanent leads implant under fluoroscopic guidance X2 leads . (Fluoroscopy images stored on file in radiology department ) CPT code 96448 x2 2-implantation of spinal cord stimulator generator Cpt code 99653 PREOPERATIVE DIAGNOSIS: 1-lumbar degenerative disc disease 2-lumbar lordosis with lumbar facet arthropathy without myelopathy. 3-sacroiliitis POSTOPERATIVE DIAGNOSIS: Same as preop diagnosis. ANESTHESIA: monitered anesthesia care as per anesthesia department BLOOD LOSS: Minimal. COMPLICATIONS: None. PROCEDURE INDICATIONS: The patient with a history of severe intractable , chronic low back pain with radiation to the lower extremities bilateraly who failed more conservative treatment measures. And she failed all interventional pain management, we discussed with the patient in the clinic the option of doing spinal cord stimulator and she was very interested risk and benefits of the procedure was discussed with the patient and she agreed with proceeding, and patient was evaluated by psychologist, and there was no contraindication to proceed with a spinal cord stimulator, vision already had successful spinal cord stimulator trial done above months ago and she is here today to have permanent implant. PROCEDURE DESCRIPTION: The patient was seen and identified in the preoperative area. Risks, benefits, complications, and alternatives were discussed with the patient. The patient agreed to proceed with the procedure and signed the consent. IV was started.Patient was taken to the operating room and time out was performed. The Thoracic and lumbar areas were prepped with Druaprep x2 and draped in the usual sterile fashion. Using sterile gowns and gloves, and after covering the fluoroscopic camera with a sterile drape, the procedure was proceeded on with. The fluoroscopic camera was placed in the AP position, and the L1-2 interlaminar space was identified and localized in the left paramedian trajectory with 1% lidocaine. Under fluoroscopic guidance, a 14 gauge Tuohy epidural needle from the ( [employer] ) spinal cord stimulator kit was guided into the interlaminar space. Then using the right oblique fluoroscopy, anterior-posterior fluoroscopy, and nhjr-wm-bkxdzvulpr technique, the epidural space was accessed. The first lead (8 contacts leads from [employer] ) was passed and noted to be in the dorsal portion of the epidural space in the lateral view. Then using anterior-posterior view, the first lead was passed up to the top of T8 vertebra. Subsequently, a second 14 gauge Tuohy epidural needle was inserted just posterior to the first needle and was advanced toward the epidural space in a parallel direction to the first needle. Then using lateral fluoroscopy, anterior-posterior fluoroscopy, and zifp-ub-oxajdsckzc technique, the epidural space was accessed by the second needle into the same interlaminar space as the first needle. Then a second similar lead was and multiple attempts done to address the lead to the posterior aspect of the epidural space. Was failed and every time I try to advance the lead was going anterior to the spinal cord, and patient was getting severe muscle spasms, and a tried more than 45 minutes to advanced the lead to the posterior aspect of the epidural space, was failed, , for this reason I aborted placement second lead and I have to depend only on one lead because patient was complaining of severe muscle spasm in the lower extremity ,Subsequently, the lead was tested and ,I got good stimulation on the low back area and the lower extremity bilaterally. Then incisions done in the spinal area upper lumbar and I did the dissection, creat pockets for the lead, and then after that I created a pocket on the left side of the flank area to create the pocket for the generator, then the generator connected to the leads, and the generator, and under the skin and placed in the pocket, adequate hemostasis obtained, and then the incision closed using 20 Vicryl, 30 Vicryls, for the skin and used liya, she will use antibiotic Keflex 500 mg every 6 hours for 1 week and also she will use Ultram 50 mg nightly 8 hours when necessary for pain, patient will follow up in the pain clinic next week
--- NOTE | 2022-11-17 13:38 | P.PN ---
Progress Note - Text Progress Note Date: 11/17/22 This is follow-up visit for this 82 years old female with a chronic history of severe low back pain, radiation to the lower extremities secondary to lumbar degenerative disc disease and lumbar facet arthropathy, sacroiliitis patient had the permanent implant of the spinal cord stimulator in the last week and she is here today for follow-up visit and check on her incision on also to program her spinal cord stimulator, today we did complex programming of the spinal cord stimulator changing pulse was amplitude and the frequency patient gets excellent pain relief, and she was very satisfied with the result and also checked in the incision in the lumbar area that looked in a great position there is no sign of infection no erythema and no discharge and patient denies any fever, he denies any motor or sensory deficit, patient finished the course of antibiotic, and patient feeling very good and she will follow up in the pain clinic when necessary
== END 2022-11-10 15:30 | disposition home or self-care (01) ==
LOC: OR 10:20
PROVIDERS: ATTEND Specialist
DX: M51.16 Intervertebral disc disorders with radiculopathy, lumbar region (principal); M47.26 Other spondylosis with radiculopathy, lumbar region; G89.29 Other chronic pain; M46.1 Sacroiliitis, not elsewhere classified; I10 Essential (primary) hypertension; E78.5 Hyperlipidemia, unspecified; M19.90 Unspecified osteoarthritis, unspecified site; Z79.899 Other long term (current) drug therapy; Z98.890 Other specified postprocedural states; Z88.5 Allergy status to narcotic agent; Z88.8 Allergy status to other drugs, medicaments and biological substances
CPT/HCPCS: 63650; 63685; J2250; J1100; J0690; J2405; J3010; J2704; 64555

== ENCOUNTER → 2022-11-17 | Outpatient (CLI) | payer MEDICARE ==
[2022-11-17 09:42] VITALS: BP 183/82; PULSE 65; RESP 18; TEMP 97.9
== END ==
LOC: PNWHC3 09:20
PROVIDERS: ATTEND Specialist
DX: G89.4 Chronic pain syndrome (principal); M51.36 Other intervertebral disc degeneration, lumbar region; M46.96 Unspecified inflammatory spondylopathy, lumbar region; M46.1 Sacroiliitis, not elsewhere classified; Z88.5 Allergy status to narcotic agent; Z88.8 Allergy status to other drugs, medicaments and biological substances
CPT/HCPCS: 99211

== ENCOUNTER → 2023-01-09 | Outpatient (CLI) | payer MEDICARE ==
--- NOTE | 2023-01-09 12:20 | XR ---
EXAMINATION TYPE: XR thoracic spine complete DATE OF EXAM: 01/09/2023 COMPARISON: NONE HISTORY: Pain TECHNIQUE: 3 views submitted FINDINGS: Alignment is anatomic. There is no compression deformities. There is multilevel moderate to severe d egenerative disc disease with hypertrophic spurring. Atherosclerotic changes of the aorta. Diffuse osteopenia. Surgical clips right upper quadrant. There is a spinal cord stimulator lead extending through the posterior margin of the thoracic column with the tip at the approximate level of T8. IMPRESSION: 1. Multilevel degenerative disc disease with the stimulator lead seen at the approximate level of T8.
[2023-01-09 13:56] VITALS: BP 188/93; PULSE 62; RESP 15; TEMP 98.1
--- NOTE | 2023-01-09 17:18 | P.PN ---
Subjective Progress Note Date: 01/09/23 This is a follow-up visit for this 82 years old female, with history of severe and chronic low back pain she is takenwith lumbar degenerative disc disease, lumbar spondylosis with lumbar facet arthropathy, and sacroiliitis, 11/10/2022, I did permanent implant of spinal cord stimulator leads and generator implant, patient did very well until recently, when she started having severe low back pain in the left side with radiation to the left lower extremity, and patient came here today to the clinic and we did complex programming of the spinal cord stimulator leads, by changing pulse widths and amplitude and the frequency of the stimulation, and we were not able to cover the left lower extremity pain, patient get adequate pain relief on the right side of her low back and right lower extremity, but there is no coverage in the left side of her back and there is no coverage of the left lower extremity, the pain is intense and interferes with the quality of life, and preventing her from doing activities of daily livings, intensity of the pain is 8/10 increased with any activity, she denies any fever or night sweats she denies any change in the bowel movement or urination Objective - Vital Signs Vital signs: Vital Signs Temp 98.1 F 01/09/23 13:50 Pulse 62 01/09/23 13:50 Resp 15 01/09/23 13:50 BP 188/93 01/09/23 13:50 Pulse Ox 96 01/09/23 13:50 FiO2 Intake & Output 01/08/23 01/09/23 01/09/23 18:59 06:59 18:59 Weight 70.307 kg - Exam Physical Examinations : -Constitutiona : Cooperative , not in acute distress . -HEENT : nech : supple , no Lymphadenopathy , normal thyroid size . : eyes : no ptosis , no icterus, no photophobia . - neurologic : Cranial nerve II to XII intact , no focal neurological deffecit . -psychatric : alert , oriented X 3 , appropriate affect , intact judgment and insight . -Lymphatic : no Lymphadenopathy . - musculoskeltal : Lumber spine moter stegnth lower extremities ,thigh and legs 4/5 Right side , 4/5 Left side Assessment and Plan Plan: Assessment and plan= chronic and severe low back pain secondary to: 1-lumbar degenerative disc disease. 2-lumbar spondylosis with lumbar facet arthropathy without myelopathy. 3-sacroiliitis. Patient had a spinal cord stimulator implant done 2 months ago, over the last few days patient had increased pain in the low back area with the radiation to the left lower extremity, we did complex programming of the spinal cord stimulator to cover the painful area on the left side but we were not able to cover the pain on the left side, x-ray of the th oracic spine ordered which showed leads shifted to the right side of the thoracic spine, the best option at this time to do a revision/replacement of the percutaneous electrode lead array: [id number], once we get approval from the insurance will proceed with the planed procedure Time with Patient: Less than 30
== END ==
LOC: PNWHC3 11:04
PROVIDERS: ATTEND Anesthesiology
DX: M51.36 Other intervertebral disc degeneration, lumbar region (principal); M47.816 Spondylosis without myelopathy or radiculopathy, lumbar region; M46.1 Sacroiliitis, not elsewhere classified; G89.29 Other chronic pain; Z88.5 Allergy status to narcotic agent; Z88.8 Allergy status to other drugs, medicaments and biological substances
CPT/HCPCS: 72072; G0463; 99211

== ENCOUNTER 2023-04-05 11:43 | Day surgery (SDC) | payer MEDICARE ==
[2023-04-02 16:01] VITALS: BMI 30.4
[~2023-04-05 11:43] MED LIST changes: -DEXAMETHASONE SOD PHOSPHATE 4 MG/ML 1 ML VIAL IV ONE; -ONDANSETRON 4 MG/2 ML VIAL IVP ONE; -fentaNYL (PF) 50 MCG/ML 2 ML AMP IV PRN
[2023-04-05 12:33] VITALS: TEMP 97.5
[2023-04-05] MEDS ORDERED: PROPOFOL 10 MG/ML 20 ML VIAL IV ONE (13:01)
[2023-04-05] MEDS ORDERED: fentaNYL (PF) 50 MCG/ML 2 ML AMP ONE (13:01)
[2023-04-05] MEDS ORDERED: MIDAZOLAM 2 MG/2 ML VIAL ONE (13:01)
[2023-04-05] MEDS ORDERED: BUPIVACAINE (PF) 0.5% 30 ML VIAL SQ ONE (13:06)
[2023-04-05] MEDS ORDERED: LIDOCAINE 2%-EPI 1:100,000 20 ML VIAL SQ ONE (13:06)
[2023-04-05] MEDS ORDERED: ceFAZolin 1,000 MG in SODIUM CHLORIDE 0.9% 1,000 ML IRRIGATION ONE (13:22)
--- NOTE | 2023-04-05 15:07 | FL ---
Intraoperative/procedural fluoroscopic services were provided. Total fluoroscopy time is 12 minutes 2 6 seconds with a total of 3 submitted images to PACS. Please see the operative/procedural note for fu rther details. DAP: 67.596 Gycm2
--- NOTE | 2023-04-05 15:41 | P.PCN ---
Date of Procedure: 04/05/23 Procedure(s) Performed: PROCEDURES: 1- revision spinal cord stimulator permanent leads under fluoroscopic guidance X1 leads . (Fluoroscopy images stored on file in radiology department ) CPT code 54808 x1 2-revision of implanted of spinal cord stimulator generator Cpt code 07035. PREOPERATIVE DIAGNOSIS: 1-lumbar degenerative disc disease 2-lumbar lordosis with lumbar facet arthropathy without myelopathy. 3-sacroiliitis 4-malposition of spinal cord stimulator lead POSTOPERATIVE DIAGNOSIS: Same as preop diagnosis. ANESTHESIA: monitered anesthesia care as per anesthesia department . Estimated blood loss 10 ML BLOOD LOSS: Minimal. COMPLICATIONS: None. PROCEDURE INDICATIONS: The patient with a history of severe intractable , chronic low back pain with radiation to the lower extremities bilateraly who failed more conservative treatment measures. And she failed all interventional pain management, patient had a spinal cord stimulator implanted a few months ago, and she had good pain relief after the spinal cord stimulator implant , and in a few weeks after the implant patient started complaining of pain, and we did complex programming of the spinal cord stimulator generator we were not able to, on her painful area she was getting coverage only on the right side of her low back area and the right lower extremity, and then we did x-ray showed lead migration, and patient here today to have the repositioning/replacement of spinal cord stimulator lead PROCEDURE DESCRIPTION: The patient was seen and identified in the preoperative area. Risks, benefits, complications, and alternatives were discussed with the patient. The patient agreed to proceed with the procedure and signed the consent. IV was started.Patient was taken to the operating room and time out was performed. The Thoracic and lumbar areas were prepped with Druaprep x2 and draped in the usual sterile fashion. under sterile technique , the incision and the location of the previous incision then I did meticulous dissection until I was able to reach the connection between the old lead and IPG and then I didn't dissection to the location of the IPG to free the IPG , the IPG removed and then I disconnected the old lead from the IPG, using 14-gauge needle ( Month[employer] med ) at the L1-2 level and was able to advance the needle into the epidural space using AP and lateral view, after the needle reached the epidural space and was able to advance in new lead epidural space, and the lead advanced up to the T7-T8 level, and was lateral to the midline on the left side, then I connected the new lead, and the old lead to the IPG , and we did complex programming of the spine and core stability at the generator and we got good coverage of the low back and the lower extremity, she reported that she got 100% coverage of her pain. And then a change in the location of the IPG from the left side of the mid back area to the right side of the mid back area because there was concern that if I kept the old location there is possibility of twisting/rotation of the IPG, for this reason I created a new pocket on the right side of the mid back area, and then the incision closed using 2-0 Vicryl and then 3-0 Vicryl subcuticular, and this was done after I secured the new lead using anchor ,( secured to the fascia ) zinc 2-0 silkusing o0 silk , then the dressing applied, and patient will use antibiotic Keflex 500 mg every 6 hours for 1 week and Ultram 50 mg every 8 hours when necessary for one week note =(During dissection, and disconnecting the leads from the old Generator /IPG , I found that the old Generator / IPG, was not functioning appropriately for this reason ,we have to use the new Generator /IPG)
[2023-04-05 16:45] VITALS: BP 146/70; PULSE 60; RESP 20
== END 2023-04-05 16:43 | disposition home or self-care (01) ==
LOC: OR 11:43
PROVIDERS: ATTEND Specialist
DX: T85.112A Breakdown (mechanical) of implanted electronic neurostimulator of spinal cord electrode (lead), initial encounter (principal); M51.36 Other intervertebral disc degeneration, lumbar region; G89.29 Other chronic pain; M46.1 Sacroiliitis, not elsewhere classified; M47.816 Spondylosis without myelopathy or radiculopathy, lumbar region; M40.56 Lordosis, unspecified, lumbar region; Y83.8 Other surgical procedures as the cause of abnormal reaction of the patient, or of later complication, without mention of misadventure at the time of the procedure
CPT/HCPCS: 72020; 63685; 63663; C1778; J2250; J0690 ×2; J3010; J2704; J0665; 64595

== ENCOUNTER → 2023-04-12 | Outpatient (CLI) | payer MEDICARE ==
[2023-04-12 13:02] VITALS: BP 191/82; PULSE 66; RESP 16; TEMP 98
--- NOTE | 2023-04-12 13:27 | P.PN ---
Progress Note - Text Progress Note Date: 04/12/23 This is follow-up visit for this 82 years old female with a chronic history of severe low back pain, radiation to the lower extremities secondary to lumbar degenerative disc disease and lumbar facet arthropathy, sacroiliitis ,last week I did revision of the spinal cord stimulator ,and she is here today for follow-up visit and check on her incision on also to program her spinal cord stimulator, today we did complex programming of the spinal cord stimulator changing pulse was amplitude and the frequency patient gets excellent pain relief, and she was very satisfied with the result and also checked in the incision in the lumbar area that looked in a great position there is no sign of infection, no erythema, and no discharge and patient denies any fever, he denies any motor or sensory deficit, patient finished the course of antibiotic, and patient feeling very good ,and she will follow up in the pain clinic when necessary
== END ==
LOC: PNWHC3 11:55
PROVIDERS: ATTEND Specialist
DX: M51.36 Other intervertebral disc degeneration, lumbar region (principal); M46.1 Sacroiliitis, not elsewhere classified; Z88.5 Allergy status to narcotic agent; Z88.8 Allergy status to other drugs, medicaments and biological substances
CPT/HCPCS: 99211

== ENCOUNTER → 2023-07-26 | Outpatient (CLI) | payer MEDICARE ==
[2023-07-26 11:56] VITALS: BP 148/74; PULSE 99; RESP 15; TEMP 98.7
--- NOTE | 2023-07-26 13:42 | P.PAINPG ---
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 Pain level is provoked at 10 /10 in intensity, constant, localized in the lumbar spine, predominantly axial, dull in character w occasional shooting towards the BL buttocks and heels. Pain is provoked by sitting/ standing/ walking for periods of 5 min or more. Pain is alleviated with PT x 6 wks in 2020 which provoked pain, physician guided stretches daily since 2020, heat, medications, topicals, repositioning and rest. Oswestry axial pain score of 36. Interventional pain procedures completed include BL RFA L3-L5 (Mar 2021), Caudal STEPHON (Sep 2021), BL SI injections (May 2022), SCS Lumbar (Apr 2023) Patient is currently on Aleve OTC, Tyl OTC Patient denies any side effects of the medication(s), denies excessive drowsiness or sleepiness, denies suicidal ideation and reports that the current pain medication is helping to control the pain and improve activities of daily living. Patient denies any motor or sensory deficits. Patient denies any fever or night sweats, denies any change in the bowel movements or urination. Physical Examination: -Constitutional: Cooperative. Not in acute distress . - Neurologic: Cranial nerve II to XII intact. No focal neurological deficits. - Psychatric: Alert & oriented x 3. Matching mood & appropriate affect. Judgment and insight intact. - Musculoskeletal: Cervical spine: Muscle bulk/ tone/ strength in the bilateral upper extremities normal Vertebral body tenderness to palpation over Spurling test positive Distraction test positive Facet loading test positive Thoracic spine Muscle bulk / tone/ strength in the bilateral paraspinal muscles normal Vertebral body tender to palpation over Facet loading test positive Lumbar spine: Motor bulk/ tone/ strength lower extremities , thigh and legs : 5/5 Deep tendon reflexes : Normal Knee Jerk. Normal Ankle Jerk . Vertebral body tenderness to palpation over L5 Lumbar Facet Loading Test positive Straight Leg Raise: positive at < 30 degrees right side/ left side Gaenslen's Test positive Sacral spine : Severe tenderness over the Sacroiliac joint: right side / left side Range of motion: Flexion of the lumbar spine <60 degrees Range of motion: Extension of the lumbar spine <20 degrees Gaenslen's Test positive BL Mary test: positive right side / left side Thigh Thrust Test BL positive Sacral Thrust Test Assessment and plan: Chronic LBP secondary to lumbar DDD, spondylosis with facet arthropathy without myelopathy Recommendation of STEPHON L5-S1 #1 and medication management w Flexeril 5mg #60 w 1 RF. Use, side effects, adverse reactions and safe storage discussed. May need a series of injections for optimal pain relief. Risks, benefits of procedure discussed and pt verbalized understanding. Admits to anticoagulant use or medical history of diabetes. Protocol for discontinuation/ continuation of medications parrish procedure discussed. All patient questions answered I have spent less than 30 minutes on patient care today. Dr Thorne was available by phone for the evaluation of this patient. The time was used to review the medical records including relevant urine studies and Prescription history (MAPs), review of the available imaging, evaluation and examination of the patient, coordination of care with the medical staff and if applicable referring physicians, as well as creation of the medical record PQRS Narrative: Smoking Status Never smoker Hx Alcohol Use (MH) No Home Medications: Ambulatory Orders Metoprolol Succinate [Toprol XL] 200 mg PO QAM 11/12/13 Enalapril/Hydrochlorothiazide [Vaseretic 10-25 mg] 1 each PO QAM 11/30/15 Red Yeast Rice 600 mg PO DAILY 09/25/16 Turmeric Root Extract [Turmeric] 500 mg PO DAILY 10/11/20 Acetaminophen [Tylenol Extra Strength] 500 - 1,000 mg PO DIRECTED PRN 2 Cholecalciferol [Vitamin D3 (25 Mcg = 1000 Iu)] 50 mcg PO DAILY 11/09/22 Vitamin B Complex 1 each PO DAILY 11/09/22 Cephalexin [Keflex] 500 mg PO Q8HR 1 Days #20 cap 04/05/23 traMADol HCl [Ultram] 50 mg PO Q6HR PRN 7 Days #20 tab 04/05/23 Controlled Substance Measures - Controlled Substance Measures Is patient prescribed a controlled substance at discharge?: No
== END ==
LOC: PNWHC3 11:08
PROVIDERS: ATTEND Specialist
DX: M51.36 Other intervertebral disc degeneration, lumbar region (principal); M47.816 Spondylosis without myelopathy or radiculopathy, lumbar region; G89.29 Other chronic pain; Z88.5 Allergy status to narcotic agent; Z88.8 Allergy status to other drugs, medicaments and biological substances
CPT/HCPCS: 99211

== ENCOUNTER 2023-08-14 11:49 | Day surgery (SDC) | payer MEDICARE ==
[2023-08-14 12:21] LABS: Glucose,Whole Blood 102 mg/dL (70-110)
[2023-08-14] MEDS ORDERED: methylPREDNISolone ACETATE 40 MG/ML 1 ML VIAL ONE (12:42)
[2023-08-14] MEDS ORDERED: IOPAMIDOL M200 10 ML VIAL ONE (12:42)
[2023-08-14 12:43] VITALS: RESP 16; TEMP 96.9
--- NOTE | 2023-08-14 12:51 | P.PCN ---
Date of Procedure: 08/14/23 Procedure(s) Performed: PREOPERATIVE DIAGNOSIS: 1- Lumbar Degenerative Disc Diseases 2-Lumbar spondylosis with Facet arthropathy without myelopathy. POSTOPERATIVE DIAGNOSIS: 1-lumbar degenerative disc disease. 2-lumbar spondylosis with facet arthropathy without myelopathy. PROCEDURE 1. Lumbar epidural steroid injection under fluoroscopic guidance at the L5-S1 level. (Fluoroscopy imaging was available in radiology department) 2. Lumbar epidurogram. ANESTHESIA: Lidocaine 1% 3 and then only. EBL: Minimal PROCEDURE INDICATION: The patient with low back pain and radiculitis symptoms unresponsive to conservative treatment. Fluoroscopy was used to optimize visualization of the needle placement and to maximize safety. PROCEDURE DESCRIPTION / TECHNIQUE: The patient was seen and identified in the preoperative area. Risks, benefits, complications including but not limited to infections ,bleeding ,allergic reaction to the medications ,nerve damage and not complete pain releife , and alternatives were discussed with the patient. The patient agreed to proceed with the procedure and signed the consent, and vital signs were stable. Patient was taken to the OR and time out was completed. The patient was placed in the prone position on procedure table and a pillow was placed under the ab domen to reduce lumbar lordosis. The lumbosacral area was prepped and draped in the usual sterile fashion.ere closely monitored during the procedure. Vital signs was monitered during the entire procedure. Using anterior-posterior fluoroscopy, the L5-S1 interlaminar space was identified and the skin over this site was marked and then infiltrated with 1% lidocaine subcutaneously. Subsequently, a 20-gauge Tuohy epidural needle was inserted and advanced toward the epidural space using the ``Loss of resistance technique and guided by AP and lateral fluoroscopy. The correct needle position in the epidural space was verified with the injection of 2 mL of the water soluble contrast dye Isovue 200 contrast and observing an excellent epidurogram with the epidural spread of the dye, after negative aspiration for blood and CSF and in the absence of paresthesias. Again after negative aspiration, a 6 ml mixture containing 40 mg of Depo-medrol ( Preservetive Free ), and 2 ml of preservative free Normal Saline, and 2 ml of preservative free lidocaine 1% solution was injected and a washout of epidurogram was seen. Needle was withdrawn intact, skin was cleansed, and bandages were applied. COMPLICATIONS: None DISPOSITION / PLANS: The patient was placed in a supine position and transferred to the recovery area in a stable condition for observation. There was no evidence of lower extremity motor or sensory deficit after the procedure. Patient was discharged from the recovery room after meeting discharge criteria. Home discharge instructions were given to the patient by the staff. The patient was reexamined prior to discharge. The patient will schedule a follow up in the clinic in 2-4 weeks.
[2023-08-14 13:18] VITALS: BP 125/75; PULSE 62
--- NOTE | 2023-08-14 15:33 | FL ---
EXAMINATION TYPE: FL guided pain mgmt statistic DATE OF EXAM: 08/14/2023 FLUOROSCOPY Fluoroscopy time of 5.3 seconds was used during lumbar epidural steroid injection. 4 image/s documen t/s the procedure. dap [id number] mGycm2.
== END 2023-08-14 13:40 | disposition home or self-care (01) ==
LOC: ORPAIN 11:49
PROVIDERS: ATTEND Specialist
DX: M47.816 Spondylosis without myelopathy or radiculopathy, lumbar region (principal); M51.36 Other intervertebral disc degeneration, lumbar region; Z88.5 Allergy status to narcotic agent; Z88.8 Allergy status to other drugs, medicaments and biological substances; Z91.018 Allergy to other foods
CPT/HCPCS: 62323; J1030; Q9966

== ENCOUNTER → 2023-09-03 | Outpatient (CLI) | payer MEDICARE ==
[2023-09-03 11:34] VITALS: BP 168/68; PULSE 61; RESP 16; TEMP 96.3
--- NOTE | 2023-09-03 14:18 | P.PAINPG ---
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 Pt states she experienced 50 % pain relief x 3 wks s/p procedure. Pain level is provoked at 5 /10 in intensity, constant, localized in the lumbar spine, predominantly axial, dull in character w occasional shooting towards the BL buttocks and heels. Pain is provoked by sitting/ standing/ walking for periods of 5 min or more. Pain is alleviated with PT x 6 wks in 2020 which provoked pain, physician guided stretches daily since 2020, heat, medications, topicals, repositioning and rest. Oswestry axial pain score of 36. Pt has difficulty ambulating due to pain. Interventional pain procedures completed include BL RFA L3-L5 (Mar 2021), Caudal STEPHON (Sep 2021), BL SI injections (May 2022), SCS Lumbar (Apr 2023), STEPHON L5-S1 x1 (Aug 2023) Patient is currently on Aleve OTC, Tyl OTC Patient denies any side effects of the medication(s), denies excessive drowsiness or sleepiness, denies suicidal ideation and reports that the current pain medication is helping to control the pain and improve activities of daily living. Patient denies any motor or sensory deficits. Patient denies any fever or night sweats, denies any change in the bowel movements or urination. Physical Examination: -Constitutional: Cooperative. Not in acute distress . - Neurologic: Cranial nerve II to XII intact. No focal neurological deficits. - Psychatric: Alert & oriented x 3. Matching mood & appropriate affect. Judgment and insight intact. - Musculoskeletal: Cervical spine: Muscle bulk/ tone/ strength in the bilateral upper extremities normal Vertebral body tenderness to palpation over Spurling test positive Distraction test positive Facet loading test positive Thoracic spine Muscle bulk / tone/ strength in the bilateral paraspinal muscles normal Vertebral body tender to palpation over Facet loading test positive Lumbar spine: Motor bulk/ tone/ strength lower extremities , thigh and legs : 5/5 Deep tendon reflexes : Normal Knee Jerk. Normal Ankle Jerk . Vertebral body tenderness to palpation over L5 Lumbar Facet Loading Test positive Straight Leg Raise: positive at < 30 degrees right side/ left side Gaenslen's Test positive Sacral spine : Severe tenderness over the Sacroiliac joint: right side / left side Range of motion: Flexion of the lumbar spine <60 degrees Range of motion: Extension of the lumbar spine <20 degrees Gaenslen's Test positive BL Mary test: positive right side / left side Thigh Thrust Test BL positive Sacral Thrust Test Assessment and plan: Chronic LBP secondary to lumbar DDD, spondylosis with facet arthropathy without myelopathy Recommendation of Caudal STEPHON, DME and medication management w Tramadol 50mg #18 NR and Valium 5mg #2 NR. Discontinue Flexeril. Script for walker w fold down seat provided. Use, side effects, adverse reactions and safe storage discussed. May need a series of injections for optimal pain relief. Risks, benefits of procedure discussed and pt verbalized understanding. Admits to anticoagulant use or medical history of diabetes. Protocol for discontinuation/ continuation of medications parrish procedure discussed. All patient questions answered I have spent less than 30 minutes on patient care today. Dr Thorne was available by phone for the evaluation of this patient. The time was used to review the medical records including relevant urine studies and Prescription history (MAPs), review of the available imaging, evaluation and examination of the patient, coordination of care with the medical staff and if applicable re [facility] physicians, as well as creation of the medical record PQRS Narrative: Smoking Status Never smoker Hx Alcohol Use (MH) No Home Medications: Ambulatory Orders Metoprolol Succinate [Toprol XL] 200 mg PO QAM 11/12/13 Enalapril/Hydrochlorothiazide [Vaseretic 10-25 mg] 1 each PO QAM 11/30/15 Turmeric Root Extract [Turmeric] 500 mg PO DAILY 10/11/20 Acetaminophen [Tylenol Extra Strength] 500 - 1,000 mg PO DIRECTED PRN 08/08/21 Cholecalciferol [Vitamin D3 (25 Mcg = 1000 Iu)] 50 mcg PO DAILY 11/09/22 Vitamin B Complex 1 each PO DAILY 11/09/22 Naproxen Sodium [Aleve] 220 mg PO DIRECTED PRN 08/09/23 diazePAM [Valium] 5 mg PO DAILY PRN 1 Days #2 tab 09/03/23 traMADol HCl [Ultram] 50 mg PO Q4HR PRN 3 Days #18 tab 09/03/23 Controlled Substance Measures - Controlled Substance Measures Is patient prescribed a controlled substance at discharge?: Yes When asked, does pt state using other controlled substances?: No If prescribed controlled substance>3 days was MAPS reviewed?: Prescribed <3 Days
== END ==
LOC: PNWHC3 09:33
PROVIDERS: ATTEND Specialist
DX: M51.36 Other intervertebral disc degeneration, lumbar region (principal); M47.816 Spondylosis without myelopathy or radiculopathy, lumbar region; G89.4 Chronic pain syndrome; Z88.5 Allergy status to narcotic agent; Z88.8 Allergy status to other drugs, medicaments and biological substances
CPT/HCPCS: 99211

== ENCOUNTER 2023-09-25 09:57 | Day surgery (SDC) | payer MEDICARE ==
[2023-09-25] MEDS ORDERED: IOPAMIDOL M200 10 ML VIAL ONE (11:00)
[2023-09-25] MEDS ORDERED: methylPREDNISolone ACETATE 40 MG/ML 1 ML VIAL ONE (11:00)
--- NOTE | 2023-09-25 11:08 | P.PCN ---
Date of Procedure: 09/25/23 Procedure(s) Performed: PREOPERATIVE DIAGNOSIS: 1-lumbar degenerative disc disease. 2-Lumbar spondylosis with lumbar facet arthropathy without myelopathy POSTOPERATIVE DIAGNOSIS: 1-lumbar degenerative disc disease. 2-Lumbar spondylosis with lumbar facet arthropathy without myelopathy PROCEDURE: 1. Caudal epidural steroid injection under fluoroscopic guidance. (Fluoroscopy images available in the radiology department ) 2. Caudal epidurogram ANESTHESIA: Local with 1% lidocaine; 5ml for subcutaneous infiltrations and IV versed mg ,and fentanyl mcg Sedation start time: . Sedations stop time : EBL: None. PROCEDURE INDICATION: The patient with neuropathic pain radiating distally returns for caudal epidural steroid injection. PROCEDURE DESCRIPTION: The patient was seen and identified in the preoperative area. Risks, benefits, complications, and alternatives were discussed with the patient. The patient agreed to proceed with the procedure and signed the consent, and vital signs were stable. Patient was taken to the OR and time out was completed. The patient was placed in the prone position on procedure table and a pillow was placed under the abdomen to reduce lumbar lordosis. The lumbosacral area was prepped and draped in the usual sterile fashion. Critical pause was taken. Vital signs were closely monitored during the procedure. Using lateral fluoroscopy the anterior-posterior plates of the sacrum were identified and the skin and deeper tissues corresponding into sacrococcygeal ligament were anesthetized using approximately 3 mL of 1% lidocaine. Then under fluoroscopy, a 3-1/2-inch 20-gauge Tuohy epidural needle was guided through the sacrococcygeal ligament, and into the epidural space. After negative aspiration, a 2 mL of Isovue 200 contrast dye was injected with excellent epidurogram. Again after negative aspiration for CSF, blood, and with no paresthesias, then Depo-Medrol 40 mg, 2ml of 1% preservative free Lidocaine with 6 ml of preservative free normal saline(total of 10ml)solution was injected with washout of epidurogram. Needle was withdrawn intact. Skin was cleansed, and bandage was applied. COMPLICATIONS: None DISPOSITION / PLANS: The patient was placed in a supine position and transferred to the recovery area in a stable condition for observation and was discharged from the recovery room after meeting discharge criteria. Home discharge instructions given to the patient by the staff. The patient was reexamined prior to discharge. The patient will schedule a follow up in the clinic in 2-4 weeks.
[2023-09-25 11:44] VITALS: BP 142/63; PULSE 61; RESP 16
--- NOTE | 2023-09-25 11:53 | FL ---
EXAMINATION TYPE: FL guided pain mgmt statistic Intraoperative/procedural fluoroscopic services were provided. Total fluoroscopy time is 8.7 seconds with a total of 2 submitted images to PACS. Please se e the operative/procedural note for further details. DAP: [id number] mGym2
== END 2023-09-25 11:31 | disposition home or self-care (01) ==
LOC: ORPAIN 09:57
PROVIDERS: ATTEND Specialist
DX: M51.36 Other intervertebral disc degeneration, lumbar region (principal); M47.816 Spondylosis without myelopathy or radiculopathy, lumbar region; Z88.5 Allergy status to narcotic agent; Z91.018 Allergy to other foods; Z88.8 Allergy status to other drugs, medicaments and biological substances
CPT/HCPCS: 62323; Q9966; J1010

== ENCOUNTER → 2023-10-17 | Outpatient (CLI) | payer MEDICARE ==
[2023-10-17 10:39] VITALS: BP 179/81; PULSE 99; RESP 16; TEMP 98.1
--- NOTE | 2023-10-17 15:49 | P.PAINPG ---
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 Pt states she experienced 0 % pain relief s/p procedure. Pain level is provoked at 8 /10 in intensity, constant, localized in the lumbar spine, predominantly axial, dull in character w occasional shooting towards the BL buttocks and heels. Pain is provoked by sitting/ standing/ walking for periods of 5 min or more. Pain is alleviated with PT x 6 wks in 2020 which provoked pain, physician guided stretches daily since 2020, heat, medications, topicals, repositioning and rest. Oswestry axial pain score of 36. Pt has difficulty ambulating due to pain. Interventional pain procedures completed include BL RFA L3-L5 (Mar 2021), Caudal STEPHON (Sep 2021, Sep 2023), BL SI injections (May 2022), SCS Lumbar (Apr 2023), STEPHON L5-S1 x1 (Aug 2023) Patient is currently on Aleve OTC, Tyl OTC Patient denies any side effects of the medication(s), denies excessive drowsiness or sleepiness, denies suicidal ideation and reports that the current pain medication is helping to control the pain and improve activities of daily living. Patient denies any motor or sensory deficits. Patient denies any fever or night sweats, denies any change in the bowel movements or urination. Physical Examination: -Constitutional: Cooperative. Not in acute distress . - Neurologic: Cranial nerve II to XII intact. No focal neurological deficits. - Psychatric: Alert & oriented x 3. Matching mood & appropriate affect. Judgment and insight intact. - Musculoskeletal: Cervical spine: Muscle bulk/ tone/ strength in the bilateral upper extremities normal Vertebral body tenderness to palpation over Spurling test positive Distraction test positive Facet loading test positive Thoracic spine Muscle bulk / tone/ strength in the bilateral paraspinal muscles normal Vertebral body tender to palpation over Facet loading test positive Lumbar spine: Motor bulk/ tone/ strength lower extremities , thigh and legs : 5/5 Deep tendon reflexes : Normal Knee Jerk. Normal Ankle Jerk . Vertebral body tenderness to palpation over L5 Lumbar Facet Loading Test positive Straight Leg Raise: positive at < 30 degrees right side/ left side Gaenslen's Test positive Sacral spine : Severe tenderness over the Sacroiliac joint: right side / left side Range of motion: Flexion of the lumbar spine <60 degrees Range of motion: Extension of the lumbar spine <20 degrees Gaenslen's Test positive BL Mary test: positive right side / left side Thigh Thrust Test BL positive Sacral Thrust Test Assessment and plan: Chronic LBP secondary to lumbar DDD, spondylosis with facet arthropathy without myelopathy Recommendation of follow up w Dr Steiner to explore additional treatment options. Tyl #3 #18 NR. Use, side effects, adverse reactions, safe storage discussed. All patient questions answered I have spent less than 30 minutes on patient care today. Dr Thorne was available by phone for the evaluation of this patient. The time was used to review the medical records including relevant urine studies and Prescription history (MAPs), review of the available imaging, evaluation and examination of the patient, coordination of care with the medical staff and if applicable referring physicians, as well as creation of the medical record - Pain Location Bilateral Lower Back Non-Pharmacological Interventions: Heat, Physical Therapy, Position/Reposition, Sitting Pharmacological Interventions: Block, Epidural, PRN Medication, Topical Medicat ion PQRS Narrative: Smoking Status Never smoker Hx Alcohol Use (MH) No Home Medications: Ambulatory Orders Metoprolol Succinate [Toprol XL] 200 mg PO QAM 11/12/13 Enalapril/Hydrochlorothiazide [Vaseretic 10-25 mg] 1 each PO QAM 11/30/15 Turmeric Root Extract [Turmeric] 500 mg PO DAILY 10/11/20 Acetaminophen [Tylenol Extra Strength] 500 - 1,000 mg PO DIRECTED PRN 08/08/21 Cholecalciferol [Vitamin D3 (25 Mcg = 1000 Iu)] 50 mcg PO DAILY 11/09/22 Vitamin B Complex 1 each PO DAILY 11/09/22 Naproxen Sodium [Aleve] 220 mg PO DIRECTED PRN 08/09/23 Acetaminophen-Codeine 300-30mg [Tylenol w/codeine #3] 1 tab PO Q4H PRN 3 Days #18 tablet 10/17/23 Controlled Substance Measures - Controlled Substance Measures Is patient prescribed a controlled substance at discharge?: Yes When asked, does pt state using other controlled substances?: No If prescribed controlled substance>3 days was MAPS reviewed?: Prescribed <3 Days
== END ==
LOC: PNWHC3 09:38
PROVIDERS: ATTEND Specialist
DX: M51.36 Other intervertebral disc degeneration, lumbar region (principal); M47.816 Spondylosis without myelopathy or radiculopathy, lumbar region; G89.29 Other chronic pain; Z88.5 Allergy status to narcotic agent; Z88.8 Allergy status to other drugs, medicaments and biological substances
CPT/HCPCS: 99211

== ENCOUNTER → 2024-02-08 | Outpatient (CLI) | payer MEDICARE ==
--- NOTE | 2024-02-08 14:07 | CT ---
EXAMINATION TYPE: CT lumbar spine wo con DATE OF EXAM: 02/08/2024 1:24 PM COMPARISON: MRI 12/28/2023 HISTORY: lower back pain CT DLP: 876 mGycm Automated exposure control for dose reduction was used. Unenhanced CT of the lumbar spine was performed. Bone and soft tissue window settings are submitted as well as coronal and sagittal reconstructions. There is a metallic catheter lead within the spinal canal. Thickening of the adrenal glands and benig n-appearing left renal cysts. Atherosclerotic change of the aorta. There is a scoliosis with severe degenerative disc disease and vacuum disc at virtually all levels. H ypertrophic spurring and generalized osteopenia. Bilateral SI joint arthropathy. L1-L2: Diffuse disc bulging with hypertrophic change of the facets. There is moderate to severe canal stenosis and bilateral foraminal encroachment. Vertebral body hemangioma L1. L2-L3: Central and right paracentral disc protrusion or herniation with the significant compression o f the thecal sac. Moderate to severe canal stenosis. Ligamentum flavum hypertrophy and facet arthropa thy contribute. There is bilateral lateral recess stenosis. Bilateral foraminal encroachment. L3-L4: Severe degenerative disc disease with broad-based disc protrusion or herniation. Hypertrophy o f the ligamentum flavum facets with severe canal stenosis and bilateral foraminal encroachment. Tibia l body hemangioma L4. L4-L5: Diffuse disc protrusion with ligamentum flavum hypertrophy. Facet arthropathy. Severe canal st enosis and bilateral foraminal encroachment. L5-S1: Diffuse disc protrusion with ligamentum flavum hypertrophy. Facet arthropathy. Severe canal st enosis and bilateral foraminal encroachment. IMPRESSION: 1. Severe degenerative disc disease at all levels. 2. Multilevel disc protrusion\herniation with hypertrophic change of the facets and ligamentum flavum resulting in multilevel severe canal stenosis and bilateral foraminal encroachment.
== END | disposition home or self-care (01) ==
LOC: RADCTMAIN 13:03
PROVIDERS: ATTEND Orthopaedic Surgery
DX: M47.816 Spondylosis without myelopathy or radiculopathy, lumbar region (principal); M51.36 Other intervertebral disc degeneration, lumbar region; K46.9 Unspecified abdominal hernia without obstruction or gangrene; M99.73 Connective tissue and disc stenosis of intervertebral foramina of lumbar region; M85.80 Other specified disorders of bone density and structure, unspecified site; M41.9 Scoliosis, unspecified; N28.1 Cyst of kidney, acquired; I70.0 Atherosclerosis of aorta
CPT/HCPCS: 72131

== ENCOUNTER → 2024-02-27 | Outpatient (CLI) | payer MEDICARE | END | disposition home or self-care (01) | LOC: LABPAT 10:11 | PROVIDERS: ATTEND Orthopaedic Surgery | DX: Z01.812 Encounter for preprocedural laboratory examination (principal); Z22.322 Carrier or suspected carrier of Methicillin resistant Staphylococcus aureus; M48.062 Spinal stenosis, lumbar region with neurogenic claudication; M47.26 Other spondylosis with radiculopathy, lumbar region | CPT/HCPCS: 86850; 86900; 86901; 87070 ==

== ENCOUNTER 2024-03-04 09:37 | Inpatient (IN) | payer MEDICARE ==
[2024-02-29 12:11] VITALS: BMI 31.2
[~2024-03-04 09:37] MED LIST changes: -LACTATED RINGERS 1,000 ML IV SCH; +TRANEXAMIC 1,000 MG/100ML-NACL 1,000 MG in SALINE 1 100ML.BAG IVPB PRN
[2024-03-04] MEDS: IV FLUID CONTINUATION 1,000 ML IV ONE ×4 (09:56)
[2024-03-04] MEDS: GABAPENTIN 300 MG CAP PO PRN (10:22)
[2024-03-04] MEDS: ACETAMINOPHEN TAB 500 MG TAB PO PRN (10:22)
[2024-03-04] MEDS: ONDANSETRON 4 MG/2 ML VIAL IVP PRN ×2 (10:22→16:26)
[2024-03-04] MEDS: LACTATED RINGERS 1,000 ML IV SCH (10:23)
--- NOTE | 2024-03-04 10:49 | P.HPOR ---
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 Becker presents to the office today, 02/27/24, for Pre-op L2-S1 Decompressive Laminectomy with likely removal of spine stimulator. She is complaining of low back pain that radiates across her back and down both of her legs. Patient also note severe sleep disturbances related to her ongoing pain and current symptoms. She is currently not taking any medications. H8 Patient denies any f/c/sob/cp, perineal numbness or tingling, bowel, or bladder incontinence/retention. Patient is ambulatory independently. * P1 The patients past social, medical, family, surgical history, as well as review of systems, have been reviewed. Please refer to the History and Physical form that has been scanned into our electronic medical record system. R0 16 points review of systems completed and as stated in HPI, all other systems reviewed are negative. PAST TREATMENTS: PAST IMAGING: YES -* TRAUMA RELATED: NO -* WORK RELATED: NO -* PT IN LAST 6 MONTHS: YES -* PHYSICIAN DIRECTED HOME EXERCISE PROGRAM: YES -* ACTIVITY MODIFICAITON: YES -* MEDICATIONS: YES -* ALTERNATIVE INTERVENTIONS (CHIROPRACTIC, ACCUPUNCTURE, MASSAGE, RICE): YES -* BRACING: NO -* INJECTIONS (STEPHON, TF, RFA): YES -* MEDICAL HISTORY: Past Medical History: REVIEWED STATED IN CHART * Past Surgical History: REVIEWED STATED IN CHART * Social History: REVIEWED STATED IN CHART SMOKING: * Never smoker ETOH: * None SUBSTANCES: *None Family History: REVIEWED STATED IN CHART Current Medications: DEL none P1 Current Medications: Rx: enalapriL 10 mg-hydrochlorothiazide 25 mg tablet Ref: 0 Instructions: take 1 tablet by oral route once daily Rx: metoprolol succinate ER 200 mg tablet,extended release 24 hr Ref: 0 Instructions: take 1 tablet (200 mg) by oral route once daily Rx: Vitamin D3 Ref: 0 Rx: vitamins B1 B6 B12 Ref: 0 P1 PHYSICAL EXAM: PC2 PC1 General: AOX3, NAD, Well hydrate, well nourished PN1 HEENT: No lumps or masses Extremities: No color changes, no pooling INTEGUMENT: Appearance: * Normal color and turgor Surgical Incisions: *NA Hairy Patches: ABSENT Dorsal Skin Dimples: Normal [employer] spots: ABSENT PALPATION: TTP Midline: *NO Paracervical: *NO Parathoracic: *NO Paralumbar: *YES SIJ TESTING: NEG POSTURAL BALANCE: Coronal: *BALANCED Sagittal: *BALANCED Shoulder height: LEVEL Pelvic Girdle: LEVEL ROM AND APPEARANCE: Neck: *UNRESTRICTED Lumbar: *RESTRICTED Shoulders: Symmetrical Hips: Symmetrical Knees: Symmetrical Hands: Symmetrical Feet: Symmetrical VASCULAR STATUS: PALPABLE PULSES B/L UE AND LE 2/4 RAD/ULNAR/DP/PT Edema: NONE NEUROLOGICAL EXAMINATION: Mental Status: Awake, alert, fully oriented with normal attention, concentration, and memory. Fluent appropriate speech. CRANIAL NERVES: I: Olfactory not assessed. II: Visual acuity normal, no visual field deficit noted with confrontation. III, IV: Normal pupillary reflexes & intact extraocular movements without nystagmus. V, : Intact symmetrical facial sensation. VII: Intact symmetrical facial motor movement: Hearing intact. IX, X: Intact gag, swallow, & normal voice. XI: Sternocleidomastoid, trapezius function intact. XII: Tongue midline with normal movements. TENSIONING: * L'HERMITTE'S SIG:*NEG SPURLUNG'S SIGN:*NEG CUBITAL TUNNEL COMPRESSION:*NEG TINELS AT WRIST:*NEG STRAIGH LEG RAISE:*POS CONTRALATERAL STRAIGHT LEG RAISE: *NEG MOTOR EXAM (0-5/5, NT) Muscle appearance: *Symmetrical, without signs of atrophy or dystrophy UPPER EXTREMITY RIGHT LEFT Shoulder Abduction *5 *5 Biceps *5 *5 Triceps *5 *5 Wrist Extension *5 *5 Hand Intrinsics *5 *5 [employer] *5 *5 LOWER EXTREMITY RIGHT LEFT Hip Flexion 4 4 Knee Extension 4 4 Knee Flexion 4 4 Dorsiflexion 4 4 Plantarflexion 4 4 EHL 4 4 FHL 4 4 REFLEXES (0-4/2, NT): RIGHT LEFT Bicep 2 2 Brachioradialis 2 2 Triceps 2 2 Patellar 2 2 Achilles 2 2 PATHOLOGICAL REFLEXES: RIGHT LEFT CHANDRA'S *ABSENT *ABSENT CLONUS *ABSENT *ABSENT BABINSKI *ABSENT *ABSENT RECTAL TONE: *INTACT/NT SENSATION (0-4, NT): Sensation intact to LT and Pain * C5-T1 distribution BUE * L2-S2 distribution BLE *Exceptions below* DERMATOMAL DEFICIT/RADICULAR PATTERN: *L2-S1 b/l GAIT AND FUNCTIONAL EVALUATION: AMBULATORY AID *YES, walker ROMBERG'S TEST *INTACT HAND AND FINGER DEXTERITY INTACT *YES DYSDIADOCHOKINESIA EXAM NEG B/L *YES TOE/HEEL WALK INTACT WITH GOOD BALANCE *YES SQUAT AND RISE W/O ASSISTANCE TO 60 DEG KNEE FLEXION *YES SINGLE LEG STANCE *INTACT TRENDELENBURG *NEG IMAGING: Xray, MRI and CT reviewed again. These show severe spondylosis with degenerative spondylolisthesis grade I likely stable with degenerative scoliosis along with sevre central and b/l foraminal stenosis at L2-S1. There are no fractures or lesions noted. IMPRESSION: It was my pleasure to have seen and examined Arnold. I reviewed the patient's clinical syndrome, physical findings, and imaging studies during the appointment today. It is my impression that the patient has a diagnosis of. 1.*L2-S1 stenosis with neurogenic claudication 2.*Low back pain 3.*LE weakness PLAN: DISCUSSION: -*I have discussed with the patient risks and benefits of surgery including but not limited to risk of bleeding, infection, damage to surrounding tissues, risk of re-operation, risk of anesthesia up to and including . She was willing to assume these risks and all the risks of surgery. SURGICAL RECOMMENDATION -*L2-S1 Decompressive Laminectomy with likely removal of spine stimulator THERAPIES -*Cont current. -Cont. with home exercises and home PT exercises as able -Cont. with Heat/Ice as warranted -Cont. with supplementation Vit D, Vit C, Ca2+, High protein diet -OK for massage or other alternative treatment modalities as able. If it exacerbates your sx do not continue ACTIVITY -*As tolerated -NO LIFTING BENDING TWISTING PUSHING PULLING GREATER THAN -*10 lbs -Recommend walking up to 30 min 2x daily on a flat easy surface with good support. MEDICATIONS -*Cont current regiment -Take as directed -Cont. home medications as directed by your PCP. Check with your PCP for any medication interactions or issues if needed. IMAGING -*No new INJECTIONS -*NA FOLLOW UP: * Post procedure PLAN AT NEXT VISIT: *Recheck PATIENT EDUCATION: Medications Reviewed: YES In our visit today Ms. Becker and I have had a chance to go over my understanding of the patient's current condition, the natural course history without intervention and various interventional options. Questions were invited and answered, and the patient wishes to proceed as outlined above. I will be sure to keep you updated after Ms. Becker returns here for further follow-up. Thank you again for your referral. Please do not hesitate to contact me if you have any further questions. Signed and authenticated by: Forrest Goetz [facility] [address] [place] [address] . This message is confidential, intended only for the named recipient(s) and may contain information that is privileged or exempt from disclosure under applicable law. If you are not the intended recipient(s), you are notified that the dissemination, distribution or copying of this information is prohibited. If you received this message in error, please notify the sender then delete this message. Past Medical History Past Medical History: Hyperlipidemia, Hypertension, Musculoskeletal Disorder, Neurologic Disorder, Osteoarthritis (OA) Additional Past Medical History / Comment(s): "Cyst on kidney", Spinal stenosis, ddd, neuropathy bilateral lower extremities History of Any Multi-Drug Resistant Organisms: None Reported Past Surgical History: Appendectomy, Cholecystectomy, Hysterectomy, Orthopedic Surgery Additional Past Surgical History / Comment(s): Bev Pain Procedures, right elbow surgery, right shoulder surgery, bilateral knee arthroscopy, cystoscopy, bilateral cataract surgery, spinal cord stimulator Past Anesthesia/Blood Transfusion Reactions: No Reported Reaction Past Psychological History: No Psychological Hx Reported Smoking Status: Never smoker Past Alcohol Use History: Rare Past Drug Use History: None Reported - Past Family History Brother(s) Family Medical History: Cancer Mother Family Medical History: Pulmonary Embolus Medications and Allergies Home Medications Medication Instructions Recorded Confirmed Type Metoprolol Succinate [Toprol XL] 200 mg PO QAM 11/12/13 03/04/24 History Enalapril/Hydrochlorothiazide 1 each PO QAM 11/30/15 03/04/24 History [Vaseretic 10-25 mg] Turmeric Root Extract [Turmeric] 500 mg PO DAILY 10/11/20 03/04/24 History Cholecalciferol [Vitamin D3 (25 50 mcg PO DAILY 11/09/22 03/04/24 History Mcg = 1000 Iu)] Vitamin B Complex 1 each PO DAILY 11/09/22 03/04/24 History Allergies Allergy/AdvReac Type Severity Reaction Status Date / Time codeine AdvReac "felt like Verified 02/29/24 11:52 something crawling on my skin" NSAIDS (Non-Steroidal AdvReac cystic Verified 02/29/24 11:52 Anti-Inflamma kidney so was told to avoid simvastatin AdvReac "muscle Verified 02/29/24 11:52 pain and cramps" Physical Examination Osteopathic Statement: *. No significant issues noted on an osteopathic structural exam other than those noted in the History and Physical/Consult.
[2024-03-04] MEDS ORDERED: ROCURONIUM 10 MG/ML (5 ML VIAL) IV ONE (11:40)
[2024-03-04] MEDS ORDERED: ePHEDrine 50 MG/ML 1 ML VIAL ONE (11:40)
[2024-03-04] MEDS ORDERED: HYDROmorphone (PF) 1 MG/ML ONE (11:40)
[2024-03-04] MEDS ORDERED: ALBUMIN HUMAN 5% (12.5gm) 250 ML BOTTLE IVPB ONE (11:40)
[2024-03-04] MEDS ORDERED: PROPOFOL 10 MG/ML 20 ML VIAL IV ONE (11:40)
[2024-03-04] MEDS ORDERED: GLYCOPYRROLATE 0.2 MG/ML 2 ML VIAL ONE (11:40)
[2024-03-04] MEDS ORDERED: TRANEXAMIC 1,000 MG/100ML-NACL PREMIX BAG ONE (11:40)
[2024-03-04] MEDS ORDERED: NEOSTIGMINE 1 MG/ML 10 ML VIAL ONE (11:40)
[2024-03-04] MEDS ORDERED: fentaNYL (PF) 50 MCG/ML 2 ML AMP ONE (11:40)
[2024-03-04] MEDS ORDERED: LIDOCAINE 1% INJ 10MG/ML (20 ML MDV) ONE (11:40)
[2024-03-04] MEDS ORDERED: PHENYLEPHRINE 10 MG/ML VIAL ONE (11:40)
[2024-03-04] MEDS: THROMBIN (BOVINE) 5,000 UNIT VIAL MISCELLANE ONE (12:20)
[2024-03-04] MEDS: BUPIVACAINE (PF) 0.5% 30 ML VIAL SQ ONE (12:32)
[2024-03-04] MEDS: LIDOCAINE 2%-EPI 1:100,000 20 ML VIAL SQ ONE (12:33)
[2024-03-04] MEDS: GENTAMICIN 80 MG in SODIUM CHLORIDE 0.9% IRRIGATIO 3,000 ML IRRIGATION ONE (12:56)
[2024-03-04] MEDS: ceFAZolin 3,000 MG in SODIUM CHLORIDE 0.9% IRRIGATIO 3,000 ML IRRIGATION ONE (12:56)
[2024-03-04] MEDS: VANCOMYCIN 1,000 MG VIAL MISCELLANE ONE (13:09)
--- NOTE | 2024-03-04 14:39 | P.OP ---
Date of Procedure: 03/04/24 Preoperative Diagnosis: Current Active Problems Lumbar stenosis with neurogenic claudication (Acute) Low back pain (Acute) Complication of implanted electronic neurostimulator of spinal cord (Acute) Lower extremity weakness (Acute) Postoperative Diagnosis: Current Active Problems Lumbar stenosis with neurogenic claudication (Acute) Low back pain (Acute) Complication of implanted electronic neurostimulator of spinal cord (Acute) Lower extremity weakness (Acute) Procedure(s) Performed: L2-3, L3-4, L4-5, L5-S1 BILATERAL LAMINECTOMY, PARTIAL MEDIAL FACETECTOMY AND FORAMINOTOMY REMOVAL OF NALRU NEUROSTIMULATOR ELECTRODS AND PULSE GENERATOR, NON FUNCTIONING. Implants: NONE Anesthesia: GETA Surgeon: Forrest Rose Household Manager #1: Manan Bray (WAS PRESENT AND ASSISTED WITH ALL ASPECTS OF THE CASE FROM POSITIONG TO DRESSING PLACEMENT) Estimated Blood Loss (ml): 250 IV fluids (ml): 1,250 Urine output (ml): 220 Pathology: none sent Condition: stable Disposition: PACU Indications for Procedure: Spine Surgery Clinical and Risk Review MIMI GARDNER is a 83 YO FEMALE presenting for evaluation of LOWER EXTREMITY WEAKNESS, LOW BACK PAIN, INABILITY TO WALK DISTANCES, NEW ONSET BLADDER ISSUES. It was my pleasure to have seen and examined MIMI GARDNER. In our visit today we have had a chance to go over subjective complaints, physical examination findings and treatments including the natural course history without intervention and various interventional options. The patients imaging demonstrates SEVERE SPONDYLOSIS WITH STENOSIS LUMBAR SPINE L2-S1. On physical exam, MIMI GARDNER demonstrates NEUROGENIC CLAUDICATION, LOWER EXTREMITY WEAKNESS, INABILITY TO AMBULATE, LOW BACK PAIN, 1/4 DTR. I have explained to the patient that as their condition progresses it will cause further neurological deficits and eventual paralysis. Based on the patients imaging, physical exam, and the rapid progression and disabling nature of their symptoms, at this time I recommend surgery in the form or a: L2-S1 LAMINECTOMY DECOMPRESSION WITH NEUROSTIMULATOR REMOVAL ELECTRODES AND PULSE GENERATOR. I discussed the risk and benefits of this procedure at length with MIMI GARDNER. The patient DAUGHTER agreed to considered pursuing the procedure abovementioned. Prior to surgery, she should follow up with her PCP (Cardio, ID, IM etc) for clearance. Questions were invited and answered, and the patient wishes to proceed as outlined below. Currently, I am recommendin. L2-S1 LAMINECTOMY DECOMPRESSION WITH NEUROSTIMULATOR REMOVAL ELECTRODES AND PULSE GENERATOR 2. Follow up with PCP for surgical clearance 3. Review of surgical risks and benefits as well as an educational packet on the proposed surgical procedure. Risks: All surgical procedures come with inherent risks, including those related to positioning, anesthesia, intraoperative findings, and postoperative complications. It is important to understand that surgery does not come with any guarantee of a successful outcome as complications and adverse events are always possible. The patient was given a handout in office today discussing the surgical procedure and risks associated with the intervention, both of which were discussed with the patient. These risks include but are not limited to the following: * Experiencing same, different or even worse symptoms in back, neck, arms, or legs compared to before surgery. * Requiring further surgery or other forms of treatment presently or at some time in the future at same or other levels of the intended spine surgery. * On an extreme but fortunately relatively rare basis severe complication such as blindness, stroke, heart attack, temporary and/or permanent nerve injury, paralysis, coma, or may occur, sometimes without known explanation. * Surgical complications may include but are not limited to risk of infection, fluid accumulation in the surgical dissection site, including a seroma or hematoma, that requires additional surgery, wound drainage, bleeding, new numbness or weakness, vision changes/loss, spinal fluid leakage, non-healing and/or infected incision, headaches, difficulty or inability to swallow, hoarseness, hemopneumothorax, pneumothorax, impotence, retrograde eja culation, vaginal dryness; injury to nerves, spinal cord, blood vessels, lymphatics or other vital organs (i.e., bowel injury, injury to the great vessels); heterotopic bone formation; complications related to the hardware such as screws, rods, cages including misplaced hardware, device failure, instrumentation at the wrong spine level, hardware fracture/breakage, or hardware loosening; vertebral failure of the spinal column above or below the newly placed hardware; retained surgical instrumentations or devices and the need for further surgery. * Medical risks of the planned spine surgery include but are not limited to generalized Infections to the whole body or local areas outside of the surgical site (sepsis), heart attack, bleeding, anaphylaxis, meningitis, seizure, epilepsy, hearing loss, burn wolff, laceration of the head or other areas of the body, bruising, hypersensitivity of the skin, bladder over distension; allergic reaction; shoulder injury related to positioning; fat, blood and air clots to other areas of the body like heart, lungs, brain; failure of internal organs such as lungs, kidneys, liver and excessive bleeding. If blood transfusions are necessary, note that transfusions may cause intolerance reactions such as anaphylaxis or other complex reactions. * Despite best efforts, the results of spine surgery might not heal in terms of bone, soft tissues such as skin, fascia, ligaments, and joints. Additionally, in order to achieve best possible results, spine surgery may be carried out beyond the initially planned levels and involve decompression, fusion including insertion of hardware at levels other than the original intended area of surgical interest change some portions of the procedure in order to ensure the best possible outcomes. * With spine surgery and spinal fusion, there are different off label uses of instrumentation (devices, implants and hardware) as well as biological substances (bone morphogenic proteins, demineralized bone matrix) as well as using extra bone from allograft sources (i.e. cadaver bone) or autograft (iliac crest bone, ribs, or the spine itself). The patient has been given information about these practices and their inherent risks and benefits. The patient has had a chance to review all the listed information, has been given print outs detailing this information, and has had all his/her questions answered to their satisfaction. It was my pleasure to have seen and examined MIMI GARDNER. In our visit today we have had a chance to go over my understanding of our patient's current condition, the natural course history without intervention and various interventional options. Questions were invited and answered, and the patient wishes to proceed as outlined above. I have seen and examined the patient for 25 minutes and we have spent more than 50% of the time in repeat and detailed counseling about the patient's condition, its natural course history with out and as much as can be predicted with surgery and re-review of various surgical treatment options. In conclusion, MIMI GARDNER and DAUGHTER requested we proceed with the above suggested surgery and are willing to accept risks and limitations of the suggested surgery as nature of the disease process and our best attempts at treatment for the condition. Thank you again for allowing us to be part of your patient's care. Please don't hesitate to contact me if you have any further questions. Signed and authenticated by: Forrest Goetz [facility] [address] [place] [address] Description of Procedure: L2-S1 LAMINECTOMY DECOMPRESSION WITH NERVE STIM REMOVAL The patient was seen and examined in the preoperative area. All preoperative protocols were followed. Informed consent was obtained, risks and benefits of the procedure were discussed at length. Risks including bleeding infection damage to the surrounding tissue and risk of reoperation were discussed with the patient. Risk of anesthesia up to and including was discussed with the patient. These are outlined in the risk review. They were willing to accept these risks and all of the risks of surgery. The patient was given a weight- based dose of antibiotics in the form of Ancef 2 grams. The patient was seen and evaluated by the anesthesia team who deemed them fit for surgery. The site was marked, the patient was willing to proceed with the procedure. The patient was transferred to the operative suite by the Department of anesthesia. They were then drifted off to sleep by the department anesthesia and GETA was performed. The patient tolerated this well. [Benton catheter was placed by nursing staff, atraumatically]. Once confirmation of lines and ventilation the patient was transferred to a [prone Randell table very carefully]. All bony prominences including wrists, elbows, axilla, chest, hips, and thighs, and feet were padded very well. Special attention was paid to the genitalia and these were padded accordingly. SCDs were placed on bilateral lower extremities and were connected. Arms were well padded and placed [on arm boards up and out in the 90/90 position]. Once in position, again we confirmed good ventilation capabilities and that lines were running appropriately. The patient's Lumbar] spine was then exposed. 1010s were placed outlining the incision site. Standard alcohol was used to clean the incision site and allowed to dry. C-arm was used to biomark the patient and confirm level for incision which was marked with a skin marker. Operative briefing was performed with all teams and everyone in agreement to proceed. The patient was then prepped and draped in a normal sterile fashion. Timeout was then performed and all parties were in agreement with the procedure to be performed. Midline skin incision was made over the Previously by a marked area and dissection taken down to the lumbar fascia which was identified and cleaned with a Cross. The nerve stimulator wires were identified crossing the incision and this was dissected out. The pulse generator was then identified and removed. The electrodes were then identified and their entrance identified in the spinal canal. These were then removed carefully without issue. We were irrigated. We then perform midline fasciotomy subperiosteal dissection of L1 through S1 taking dissection out over the facet joints. There was exuberant bone formation osteophyte formation as well as overgrowth in this area. We then performed bilateral laminectomy, partial medial facetectomy and foraminotomies using high- speed amilcar Kerrison rongeur around her and up-biting curettes. There was severe stenosis throughout this area of ligamentous hypertrophy as well as facet hypertrophy contributing. Once this was completed markers were placed at the cranial caudal ends of the decompression and imaging taken confirming good decompression of the area. We then checked the area with a ball probe and Whittaker probe and there was good decompression of all roots. The wound was then copiously irrigated with antibiotic irrigation normal sterile saline and Irricept. Surgicel was placed over the dura. Vancomycin 2 g placed deep within the wound and a deep drain was placed and secured to the skin with a stitch. We then proceeded to layered closure. Deep fascia was closed with #1 PDS followed by deep subcu tissue with 0 PDS superficial subcu tissue with oh and 2-0 Vicryl subcu with 2-0 Vicryl and skin with skin liya. The wound edges approximated very well. The wound was then cleaned and dressed sterilely with Adaptic 4 x 4s ABDs and Medipore tape. The patient was transferred back to their hospital bed atraumatically. [Drain continued to hold suction and was in a good position]. Patient was then awakened and extubated by the department of anesthesia having tolerated the procedure very well with no complications. They were transferred to the postoperative care unit in stable condition.
--- NOTE | 2024-03-04 14:46 | XR ---
EXAM TYPE: LUMBAR SPINE X RAY SERIES COMPARISON: NONE HISTORY: Lumbar stenosis TECHNIQUE: 6 views are submitted. FINDINGS: Limited resolution intraoperative images demonstrate surgical changes involving the vertebral column with scattered surgical metallic instrumentation. Multilevel hypertrophic and degenerative changes of the spine. Surgical clips in the abdomen noted. Correlate for a stimulator device with partial inclu camila of the [id number] of stimulator lead. IMPRESSION: 1. Intraoperative images lumbar spine. [facility], , 03/04/2024 2:44 PM
[2024-03-04] MEDS ORDERED: bisacodyL 10 MG SUPP RECTAL PRN (14:57)
[2024-03-04] MEDS ORDERED: MAGNESIUM HYDROXIDE 2,400 MG/30 ML CUP PO PRN (14:57)
[2024-03-04] MEDS ORDERED: NA PHOS,M-B/NA PHOS,DI-BA 133 ML ENEMA RECTAL PRN (14:57)
[2024-03-04] MEDS ORDERED: HYDROcodone/APAP 7.5-325MG 1 EACH TAB PO PRN (15:01)
[2024-03-04] MEDS: ACETAMINOPHEN TAB 325 MG TAB PO SCH (17:34)
[2024-03-04] MEDS: 0.9% NACL WITH KCL 20 MEQ/L 1,000 ML IV SCH (18:52)
--- NOTE | 2024-03-05 08:49 | P.PN ---
Subjective Progress Note Date: 03/05/24 Principal diagnosis: Lumbar stenosis with neurogenic claudication Low back pain Complication of implanted electronic neurostimulator of spinal cord Lower extremity weakness Patient seen and examined this morning. Patient is resting comfortably in bed. Patient reports that she has not been up since procedure. Benton catheter has been removed this morning, patient is due to void. Patient does report a decrease of radiculopathy and numbness and tingling into the lower extremities since the procedure. Surgical incision to the lumbar spine, dressing is clean dry and intact with Hemovac present. Informed patient that physical therapy will be in to work with her this morning to increase her activity, patient states that she is looking forward to progress. Patient does report that she does have help at home with her neighbors, although she is open to subacute rehab if needed at discharge. Prescription for LSO brace has been placed in chart, patient may work with therapy until brace is delivered. Continue to encourage patient to utilize incentive spirometer 10 times per hour while awake. No acute concerns at this time. Objective - Vital Signs Vital signs: Vital Signs Temp 97.9 F 03/05/24 07:49 Pulse 61 03/05/24 07:49 Resp 17 03/05/24 07:49 BP 158/70 03/05/24 07:49 Pulse Ox 99 03/05/24 07:49 FiO2 Intake & Output 03/04/24 03/05/24 03/05/24 18:59 06:59 18:59 Intake Total 1152 Output Total 400 750 Balance 752 -750 Weight 71.9 kg Intake: IV 1152 Output: Drainage 50 Lower Back 50 Urine 150 700 Estimated Blood Loss 250 Other: Voiding Method Indwelling Catheter - Exam Physical Examination General: The patient is awake and alert, in no acute distress Skin: Skin is warm and dry with no obvious rashes or lesions. Surgical incision to the lumbar spine, dressing is clean dry and intact with Hemovac present with 50 mL output overnight. Eye: Pupils are equal, round and reactive to light, extra-ocular movements are intact; there is normal conjunctiva bilaterally. Neck: The neck is supple, there is no tenderness and ROM intact. Cardiovascular: There is a regular rate and rhythm. No murmur, rub or gallop is appreciated. Respiratory: Respirations are non-labored, breath sounds are equal. Gastrointestinal: Soft, non-distended, non-tender abdomen. Back: There is no tenderness to palpation in the midline, paralumbar, parathoracic or buttocks region. There is no obvious deformity . Musculoskeletal: ROM limited secondary to pain and stiffness from surgical procedure. Right: Shoulder abduction 5/5, elbow flexors 5/5, wrist dorsiflexors 5/5. finger abductor 5/5, cake puncher 5/5, hip flexor 4/5, knee flexor 4/5, ankle dorsiflexor 4/5, ankle plantarflexion 4/5 and extensor hallucis 4/5. Left: Shoulder abduction 5/5, elbow flexors 5/5, wrist dorsiflexors 5/5. finger abductor 5/5, cake puncher 5/5, hip flexor 4/5, knee flexor 4/5, ankle dorsiflexor 4/5, ankle plantarflexion 4/5 and extensor hallucis 4/5. Neurological: CN 2-12 intact. There are no obvious motor or sensory deficits. M ovement and coordination equal and intact. Sensory exam to light touch intact C5-T1 and intact from L2-S1. Reflexes 2/4 in bilateral upper and lower extremities. Negative Hoffmans, babinski, and clonus signs. Psychiatric: Cooperative, appropriate mood & affect, normal judgment. Assessment and Plan Assessment: Postop day 1: L2-S1 laminectomy with stimulator removal Plan: -Appreciate customer care voice consultant and team management. -Activity: Ambulate QID, OOB all meals, up and about, limit lifting bending twisting to less than 5 lbs. Use walker or cane if needed for stability. -Daily PT/OT, increase ambulation strength and balance. -Brace when up and about, not needed in bed or chair -Prescription placed in chart for LSO brace -Pain control: Adequate at this time -Meds: reviewed -GI ppx: senna, Miralax -DVT PPX: OK to restart Heparin tonight -Hygiene: Maintain dressing clean and dry. Meticulous cleaning after BMs away from the incision site -Drains: Maintain for now. Continue to monitor and record output q shift. -Encourage IS 10x/hr -Dispo: Anticipate discharge home with home care versus subacute rehab within the next 48-72 hours *I reviewed and discussed this case with my attending Dr. Rose, whom has reviewed this chart and films and is in agreement with assessment and plan of care as outlined above. I have personally seen and examined the patient, performed the documentation and the assessment and plan as written. Number of minutes spent on the visit: 20m.
[2024-03-05 09:10] LABS: Basophils # (A) 0.03 X 10*3/uL (0.00-0.10); Basophils % (A) 0.3 %; Eosinophils # (A) 0.02 X 10*3/uL (0.04-0.35); Eosinophils % (A) 0.2 %; HGB 9.7 g/dL (12.0-15.0); Lymphocytes # (A) 1.53 X 10*3/uL (0.90-5.00); Lymphocytes % (A) 15.5 %; MCH 30.4 pg (27.0-32.0); MCHC 33.4 g/dL (32.0-37.0); MCV 90.9 FL (80.0-97.0); Mean Platelet Volume 9.1 FL (9.5-12.2); Monocytes # (A) 0.51 X 10*3/uL (0.20-1.00); Monocytes % (A) 5.2 %; NRBC Per 100 WBC 0 X 10*3/uL (0.00-0.01); Neutrophils # (A) 7.72 X 10*3/uL (1.80-7.70); Neutrophils % (A) 78.4 %; Platelet Count 184 X 10*3/uL (140-440); RBC 3.19 X 10*6/uL (4.10-5.20); RDW 12.6 % (11.5-14.5); WBC 9.85 X 10*3/uL (4.50-10.00)
[2024-03-05 09:20] LABS: BUN/Creat Ratio 19.56 Ratio (12.00-20.00); Blood Urea Nitrogen 17.6 mg/dL (9.0-27.0); Calcium 8.2 mg/dL (8.7-10.3); Chloride 103 mmol/L (96-109); Glucose 110 mg/dL (70-110); Potassium 4.1 mmol/L (3.5-5.5); Sodium 138 mmol/L (135-145)
[2024-03-05] MEDS: SENNOSIDES-DOCUSATE SODIUM 1 EACH TAB PO SCH (10:58)
[2024-03-05] MEDS: hydroCHLOROthiazide 25 MG TAB PO SCH (10:58)
[2024-03-05] MEDS: polyethylene glycoL 3350 17 GM POWD.PACK PO SCH (10:59)
[2024-03-05] MEDS: lisinopriL 20 MG TAB PO SCH (10:59)
--- NOTE | 2024-03-05 11:17 | P.CONS ---
History of Present Illness - History of Present Illness This is a pleasant 83 years old female with previous history of back pain and other medical problems She was admitted for significant lumbar stenosis with neurogenic claudication and lower back pain and lower extremity weakness. She is status post bilateral laminectomy and foraminotomy of L2-3, L3-4, L4-5, L5-S1. Today's postop day #1 Patient sitting up in bed. She denies chest pain or dyspnea. No overt GI/ complaint She still has some pain in her surgery site which is expected and she rated as 5-6/10 in severity She is not sure if her legs start improving yet She denies any other specific complaint Hemodynamically stable, she has heart rate around 50 overnight, currently better Blood pressure stable Labs reviewed, hemoglobin is 9.7 which is expected, rest of CBC, BMP is unremarkable with creatinine is 0.9. Review of Systems Review of systems CONSTITUTIONAL: No fever, no malaise, no fatigue. HEENT: No recent visual problems or hearing problems. Denied any sore throat. CARDIOVASCULAR: No orthopnea, PND, no palpitations, no syncope. PULMONARY: No shortness of breath, no cough, no hemoptysis. GASTROINTESTINAL: No diarrhea, no nausea, no vomiting, no abdominal pain. Normoactive bowel sounds. NEUROLOGICAL: No headaches, no weakness, no numbness. HEMATOLOGICAL: Denies any bleeding or petechiae. GENITOURINARY: Denies any burning micturition, frequency, or urgency. MUSCULOSKELETAL/RHEUMATOLOGICAL: Denies any joint pain, swelling, or any muscle pain. ENDOCRINE: Denies any polyuria or polydipsia. Past Medical History Past Medical History: Hyperlipidemia, Hypertension, Musculoskeletal Disorder, Neurologic Disorder, Osteoarthritis (OA) Additional Past Medical History / Comment(s): "Cyst on kidney", Spinal stenosis, ddd, neuropathy bilateral lower extremities History of Any Multi-Drug Resistant Organisms: None Reported Past Surgical History: Appendectomy, Cholecystectomy, Hysterectomy, Orthopedic Surgery Additional Past Surgical History / Comment(s): Bev Pain Procedures, right elbow surgery, right shoulder surgery, bilateral knee arthroscopy, cystoscopy, bilateral cataract surgery, spinal cord stimulator Past Anesthesia/Blood Transfusion Reactions: No Reported Reaction Past Psychological History: No Psychological Hx Reported Smoking Status: Never smoker Past Alcohol Use History: Rare Past Drug Use History: None Reported - Past Family History Brother(s) Family Medical History: Cancer Mother Family Medical History: Pulmonary Embolus Medications and Allergies Home Medications Medication Instructions Recorded Confirmed Type Metoprolol Succinate [Toprol XL] 200 mg PO QAM 11/12/13 03/04/24 History Enalapril/Hydrochlorothiazide 1 each PO QAM 11/30/15 03/04/24 History [Vaseretic 10-25 mg] Turmeric Root Extract [Turmeric] 500 mg PO DAILY 10/11/20 03/04/24 History Cholecalciferol [Vitamin D3 (25 50 mcg PO DAILY 11/09/22 03/04/24 History Mcg = 1000 Iu)] Vitamin B Complex 1 each PO DAILY 11/09/22 03/04/24 History Allergies Allergy/AdvReac Type Severity Reaction Status Date / Time codeine AdvReac "felt like Verified 02/29/24 11:52 something crawling on my skin" NSAIDS (Non-Steroidal AdvReac cystic Verified 02/29/24 11:52 Anti-Inflamma kidney so was told to avoid simvastatin AdvReac "muscle Verified 02/29/24 11:52 pain and cramps" Physical Exam Vitals: Vital Signs Temp Pulse Resp BP Pulse Ox 03/05/24 07:49 97.9 F 61 17 158/70 99 03/05/24 00:28 97.3 F L 57 L 16 119/71 99 03/04/24 21:40 48 L 148/79 100 03/04/24 18:00 96.6 F L 50 L 16 148/71 99 03/04/24 17:59 49 L 146/76 100 03/04/24 16:51 50 L 16 137/55 03/04/24 16:38 52 L 16 132/63 100 03/04/24 16:23 52 L 16 144/64 03/04/24 16:08 54 L 16 150/68 03/04/24 15:53 54 L 16 153/67 03/04/24 15:38 54 L 16 144/65 100 03/04/24 15:23 59 L 16 158/70 03/04/24 15:00 62 16 180/80 100 03/04/24 14:52 97 F L 74 14 192/86 100 Intake and Output 03/04/24 03/05/24 03/05/24 22:59 06:59 14:59 Intake Total 0 Output Total 750 Balance 0 -750 Intake: IV 0 Output: Drainage 50 Lower Back 50 Urine 700 Other: Voiding Method Indwelling Catheter Weight 71.9 kg GENERAL: The patient is alert and oriented x3, not in any acute distress. Well developed, well nourished. HEENT: Pupils are round and equally reacting to light. EOMI. No scleral icterus. No conjunctival pallor. Normocephalic, atraumatic. No pharyngeal erythema. No thyromegaly. CARDIOVASCULAR: S1 and S2 present. No murmurs, rubs, or gallops. PULMONARY: Chest is clear to auscultation, no wheezing , no crackles. ABDOMEN: Soft, nontender, nondistended, normoactive bowel sounds. No palpable organomegaly. -MUSCULOSKELETAL: No joint swelling or deformity. Surgical wound with dressing in place, rest of exam is deferred to surgery team EXTREMITIES: No cyanosis, clubbing, or pedal edema. NEUROLOGICAL: Gross neurological examination did not reveal any focal deficits. SKIN: No rashes. no petechiae. Results CBC & Chem 7: 03/05/24 03:23 03/05/24 03:23 Labs: Abnormal Lab Results - Last 24 Hours (Table) 03/05/24 03/05/24 Range/Units 03:23 03:23 RBC 3.19 L (4.10-5.20) X 10*6/uL Hgb 9.7 L (12.0-15.0) g/dL Hct 29.0 L (37.2-46.3) % MPV 9.1 L (9.5-12.2) FL Neutrophils # 7.72 H (1.80-7.70) X 10*3/uL Eosinophils # 0.02 L (0.04-0.35) X 10*3/uL Calcium 8.2 L (8.7-10.3) mg/dL Assessment and Plan Assessment: lumbar stenosis with neurogenic claudication and lower back pain and lower extremity weakness. She is status post bilateral laminectomy and foraminotomy of L2-3, L3-4, L4-5, L5-S1. Asymptomatic bradycardia Hypertension Postoperative anemia, mild and asymptomatic which is expected Plan: Resume antihypertensive medication Continue with bowel regiment as pain medication given Orthopedic primary team on the case GI and DVT prophylaxis is deferred to surgery primary team We recommend patient follow-up with her PCP in 1 week after discharge
[2024-03-05] MEDS: CHOLECALCIFEROL 25 MCG (1000 IU) TABLET PO SCH (11:23)
[2024-03-05] MEDS: SODIUM CHLORIDE 0.9% 1,000 ML IV SCH (13:51)
[2024-03-05] MEDS: HYDROcodone/APAP 5-325MG 1 EACH TAB PO PRN (18:24)
[2024-03-05] MEDS: traMADol 50 MG TAB PO PRN (22:03)
--- NOTE | 2024-03-06 06:39 | FL ---
EXAM TYPE: LUMBAR SPINE X RAY SERIES COMPARISON: NONE HISTORY: Lumbar stenosis TECHNIQUE: 6 views are submitted. FINDINGS: Limited resolution intraoperative images demonstrate surgical changes involving the vertebral column with scattered surgical metallic instrumentation. Multilev el hypertrophic and degenerative changes of the spine. Surgical clips in the abdomen noted. Correlate for a stimulator de vice with partial inclusion of the [id number] of stimulator lead. IMPRESSION: 1. Intraoperative images lumbar spine. [facility], , 03/06/2024 6:37 AM
--- NOTE | 2024-03-06 09:26 | P.PN ---
Subjective This is a pleasant 83 years old female with previous history of back pain and other medical problems She was admitted for significant lumbar stenosis with neurogenic claudication and lower back pain and lower extremity weakness. She is status post bilateral laminectomy and foraminotomy of L2-3, L3-4, L4-5, L5-S1. Today's postop day #1 Patient sitting up in bed. She denies chest pain or dyspnea. No overt GI/ complaint She still has some pain in her surgery site which is expected and she rated as 5-6/10 in severity She is not sure if her legs start improving yet She denies any other specific complaint Hemodynamically stable, she has heart rate around 50 overnight, currently better Blood pressure stable Labs reviewed, hemoglobin is 9.7 which is expected, rest of CBC, BMP is unremarkable with creatinine is 0.9. 03/06 Patient in mild distress today due to surgery site pain, she rated about 6/10 in severity No chest pain or dyspnea No abdominal pain She has no bowel movement yet Patient might benefit from ECF admission for rehab upon discharge, patient looks agreeable to this 2. Patient hemoglobin yesterday 9.7 which is expected. Also patient on normal saline. She is also on Toradol for pain control Recheck hemoglobin tomorrow Objective - Vital Signs Vital signs: Vital Signs Temp 99.8 F H 03/06/24 01:15 Pulse 70 03/06/24 01:15 Resp 15 03/06/24 01:15 BP 110/61 03/06/24 01:15 Pulse Ox 91 L 03/06/24 01:15 FiO2 Intake & Output 03/05/24 03/06/24 03/06/24 18:59 06:59 18:59 Output Total 20 10 Balance -20 -10 Output: Drainage 20 10 Lower Back 20 10 Other: Voiding Method Toilet # Voids 6 1 - Labs CBC & Chem 7: 03/05/24 03:23 03/05/24 03:23 Assessment and Plan Assessment: lumbar stenosis with neurogenic claudication and lower back pain and lower extremity weakness. She is status post bilateral laminectomy and foraminotomy of L2-3, L3-4, L4-5, L5-S1. Asymptomatic bradycardia Hypertension Postoperative anemia, mild and asymptomatic which is expected Plan: Monitor hemoglobin Continue with laxative Resume antihypertensive medication Continue with bowel regiment as pain medication given Orthopedic primary team on the case PT/OT, patient may benefit from ECF upon discharge GI and DVT prophylaxis is deferred to surgery primary team We recommend patient follow-up with her PCP in 1 week after discharge
--- NOTE | 2024-03-06 09:35 | P.PN ---
Subjective Progress Note Date: 03/06/24 Principal diagnosis: Lumbar stenosis with neurogenic claudication Low back pain Complication of implanted electronic neurostimulator of spinal cord Lower extremity weakness Patient seen and examined this morning. Patient is resting comfortably in bed. Patient reports that she may have over done her activity with physical therapy and ambulating within room yesterday, she is more painful today. Medications have been adjusted. Patient does report a decrease of radiculopathy and numbness and tingling into the lower extremities since the procedure. Surgical incision to the lumbar spine, dressing is clean dry and intact with Hemovac present. Continue to encourage patient to utilize incentive spirometer 10 times per hour while awake. No acute concerns at this time. Objective - Vital Signs Vital signs: Vital Signs Temp 99.8 F H 03/06/24 01:15 Pulse 70 03/06/24 01:15 Resp 15 03/06/24 01:15 BP 110/61 03/06/24 01:15 Pulse Ox 91 L 03/06/24 01:15 FiO2 Intake & Output 03/05/24 03/06/24 03/06/24 18:59 06:59 18:59 Output Total 20 10 Balance -20 -10 Output: Drainage 20 10 Lower Back 20 10 Other: Voiding Method Toilet # Voids 6 1 - Exam Physical Examination General: The patient is awake and alert, in no acute distress Skin: Skin is warm and dry with no obvious rashes or lesions. Surgical incision to the lumbar spine, dressing is clean dry and intact with Hemovac present with 10 mL output overnight. Eye: Pupils are equal, round and reactive to light, extra-ocular movements are intact; there is normal conjunctiva bilaterally. Neck: The neck is supple, there is no tenderness and ROM intact. Cardiovascular: There is a regular rate and rhythm. No murmur, rub or gallop is appreciated. Respiratory: Respirations are non-labored, breath sounds are equal. Gastrointestinal: Soft, non-distended, non-tender abdomen. Back: There is no tenderness to palpation in the midline, paralumbar, parathoracic or buttocks region. There is no obvious deformity . Musculoskeletal: ROM limited secondary to pain and stiffness from surgical procedure. Right: Shoulder abduction 5/5, elbow flexors 5/5, wrist dorsiflexors 5/5. finger abductor 5/5, actuarial trainee 5/5, hip flexor 4/5, knee flexor 4/5, ankle dorsiflexor 4/5, ankle plantarflexion 4/5 and extensor hallucis 4/5. Left: Shoulder abduction 5/5, elbow flexors 5/5, wrist dorsiflexors 5/5. finger abductor 5/5, actuarial trainee 5/5, hip flexor 4/5, knee flexor 4/5, ankle dorsiflexor 4/5, ankle plantarflexion 4/5 and extensor hallucis 4/5. Neurological: CN 2-12 intact. There are no obvious motor or sensory deficits. Movement and coordination equal and intact. Sensory exam to light touch intact C5-T1 and intact from L2-S1. Reflexes 2/4 in bilateral upper and lower extremities. Negative Hoffmans, babinski, and clonus signs. Psychiatric: Cooperative, appropriate mood & affect, normal judgment. - Labs CBC & Chem 7: 03/05/24 03:23 03/05/24 03:23 Labs: Abnormal Lab Results - Last 24 Hours (Table) 03/05/24 03/05/24 Range/Units 03:23 03:23 RBC 3.19 L (4.10-5.20) X 10*6/uL Hgb 9.7 L (12.0-15.0) g/dL Hct 29.0 L (37.2-46.3) % MPV 9.1 L (9.5-12.2) FL Neutrophils # 7.72 H (1.80-7.70) X 10*3/uL Eosinophils # 0.02 L (0.04-0.35) X 10*3/uL Calcium 8.2 L (8.7-10.3) mg/dL Assessment and Plan Assessment: Postop day 2: L2-S1 laminectomy with stimulator removal Plan: -Appreciate library consultant and team management. -Activity: Ambulate QID, OOB all meals, up and about, limit lifting bending twi sting to less than 5 lbs. Use walker or cane if needed for stability. -Daily PT/OT, increase ambulation strength and balance. -Brace when up and about, not needed in bed or chair -Pain control: Adequate at this time -Meds: reviewed -GI ppx: senna, Miralax -DVT PPX: Heparin -Hygiene: Maintain dressing clean and dry. Meticulous cleaning after BMs away from the incision site -Drains: Maintain for now. Continue to monitor and record output q shift. -Encourage IS 10x/hr -Dispo: Anticipate discharge home with home care versus subacute rehab within the next 24-48 hours *I reviewed and discussed this case with my attending Dr. Rose, whom has reviewed this chart and films and is in agreement with assessment and plan of care as outlined above. I have personally seen and examined the patient, performed the documentation and the assessment and plan as written. Number of minutes spent on the visit: 20m.
[2024-03-06 09:58] LABS: Basophils % (A) 0 %; Eosinophils # (A) 0.1 k/uL (0-0.7); Eosinophils % (A) 1 %; HCT 25.7 % (34.0-46.0); HGB 8.7 gm/dL (11.4-16.0); Lymphocytes # (A) 1.7 k/uL (1.0-4.8); Lymphocytes % (A) 17 %; MCHC 33.8 g/dL (31.0-37.0); MCV 91.9 fL (80.0-100.0); Mean Platelet Volume 8.7; Monocytes # (A) 0.5 k/uL (0-1.0); Monocytes % (A) 5 %; Neutrophils # (A) 7.9 k/uL (1.3-7.7); Neutrophils % (A) 76 %; Platelet Count 186 k/uL (150-450); RDW 12.6 % (11.5-15.5); WBC 10.3 k/uL (3.8-10.6)
[2024-03-06 10:12] LABS: African American GFR (CKD) 69 (>60 ml/min/1.73 sqM); Anion Gap 7 mmol/L; Blood Urea Nitrogen 13 mg/dL (7-17); Carbon Dioxide 25 mmol/L (22-30); Chloride 99 mmol/L (98-107); Glucose 110 mg/dL (74-99); Non-African American GFR(CKD) 60 (>60 ml/min/1.73 sqM); Potassium 3.3 mmol/L (3.5-5.1); Sodium 131 mmol/L (137-145)
[2024-03-06] MEDS: KETOROLAC 15 MG/ML 1 ML VIAL IVP SCH (11:17)
[2024-03-06] MEDS: HEPARIN SODIUM,PORCINE 5,000 UNIT/ML 1 ML VIAL SQ SCH (20:55)
[2024-03-06] MEDS: CYCLOBENZAPRINE 10 MG TAB PO SCH (20:55)
[2024-03-06] MEDS: HYDROcodone/APAP 7.5-325MG 1 EACH TAB PO PRN (22:51)
[2024-03-07 07:52] LABS: Magnesium 1.5 mg/dL (1.6-2.3); Potassium 3.4 mmol/L (3.5-5.1)
--- NOTE | 2024-03-07 08:24 | P.PN ---
Subjective This is a pleasant 83 years old female with previous history of back pain and other medical problems She was admitted for significant lumbar stenosis with neurogenic claudication and lower back pain and lower extremity weakness. She is status post bilateral laminectomy and foraminotomy of L2-3, L3-4, L4-5, L5-S1. Today's postop day #1 Patient sitting up in bed. She denies chest pain or dyspnea. No overt GI/ complaint She still has some pain in her surgery site which is expected and she rated as 5-6/10 in severity She is not sure if her legs start improving yet She denies any other specific complaint Hemodynamically stable, she has heart rate around 50 overnight, currently better Blood pressure stable Labs reviewed, hemoglobin is 9.7 which is expected, rest of CBC, BMP is unremarkable with creatinine is 0.9. 03/06 Patient in mild distress today due to surgery site pain, she rated about 6/10 in severity No chest pain or dyspnea No abdominal pain She has no bowel movement yet Patient might benefit from ECF admission for rehab upon discharge, patient looks agreeable to this 2. Patient hemoglobin yesterday 9.7 which is expected. Also patient on normal saline. She is also on Toradol for pain control Recheck hemoglobin tomorrow 02/25 Patient awake alert She had a rough night because she had pain in her surgical site and she could not get up, currently her pain at the surgical area subsided down to 5/6, she is not in distress anymore. She complains also from constipation. We are going to order a one-time dose of MiraLAX She denies any other complaint. Her blood pressure was borderline overnight and during sleep, this morning better with systolic 120s per staff. Patient with no symptoms Patient's is on lisinopril 20 mg daily and hydrochlorothiazide which she received both this morning. We are going to discontinue hydrochlorothiazide with worsening hyponatremia 138, 131 and 128 today Low potassium and magnesium replaced Will recommend continue close monitoring of blood pressure and sodium level Review of systems CONSTITUTIONAL: No fever, no malaise, no fatigue. HEENT: No recent visual problems or hearing problems. Denied any sore throat. CARDIOVASCULAR: No orthopnea, PND, no palpitations, no syncope. PULMONARY: No shortness of breath, no cough, no hemoptysis. GASTROINTESTINAL: No diarrhea, no nausea, no vomiting, no abdominal pain. Normoactive bowel sounds. NEUROLOGICAL: No headaches, no weakness, no numbness. HEMATOLOGICAL: Denies any bleeding or petechiae. Active Medications Generic Name Dose Route Start Last Admin Trade Name Juju PRN Reason Stop Dose Admin Acetaminophen 650 mg 03/04/24 18:00 03/07/24 06:24 Acetaminophen Tab 325 Mg Tab PO 04/03/24 17:59 Not Given Q6HR JON Hydrocodone Bitart/Acetaminophen 1 each 03/06/24 09:15 03/07/24 07:01 Hydrocodone/Apap 7.5-325mg 1 Each Tab PO 04/03/24 15:00 1 each Q4HR PRN Administration Pain Scale 6 to 10 Bisacodyl 10 mg 03/04/24 14:57 Bisacodyl 10 Mg Supp RECTAL 04/03/24 14:56 DAILY PRN Constipation Cholecalciferol 50 mcg 03/05/24 09:00 03/07/24 08:02 Cholecalciferol 25 Mcg (1000 Iu) Tablet PO 50 mcg DAILY JON Administration Cyclobenzaprine HCl 10 mg 03/06/24 21:00 03/07/24 08:02 Cyclobenzaprine 10 Mg Tab PO 10 mg BID JON Administration Heparin Sodium (Porcine) 5,000 unit 03/06/24 21:00 03/07/24 08:04 Heparin Sodium,Porcine 5,000 Unit/Ml 1 Ml Vial SQ 5,000 unit Q12HR JON Administration Hydromorphone HCl 0.5 mg 03/04/24 14:57 Hydromorphone 0.5 Mg/0.5 Ml Syringe IVP 04/03/24 14:56 Q3HR PRN Pain Scale 8 to 9 Lactated Ringer's 1,000 mls @ 20 mls/hr 03/04/24 06:55 03/07/24 07:21 Lactated Ringers IV 04/03/24 06:54 Not Given .Q24H JON Potassium Chloride/Sodium Chloride 1,000 mls @ 30 mls/hr 03/04/24 15:00 03/06/24 14:07 Ns-Kcl 20 Meq/L Iv Solution IV 04/03/24 14:59 Not Given .Q24H JON Cefazolin Sodium 2 gm/ Sodium 50 mls @ 100 mls/hr 03/06/24 00:00 03/07/24 00:15 Chloride IVPB 100 mls/hr Q12H JON Administration Protocol Magnesium Sulfate/Dextrose 1 100 mls @ 100 mls/hr 03/07/24 08:30 gm/ IV Solution IVPB 03/07/24 09:29 ONCE ONE Lisinopril 20 mg 03/05/24 09:00 03/07/24 08:02 Lisinopril 20 Mg Tab PO 20 mg QAM JON Administration Magnesium Hydroxide 2,400 mg 03/04/24 14:57 Magnesium Hydroxide 2,400 Mg/30 Ml Cup PO 04/03/24 14:56 DAILY PRN Constipation Ondansetron HCl 4 mg 03/04/24 14:57 03/05/24 11:05 Ondansetron 4 Mg/2 Ml Vial IVP 04/03/24 14:56 4 mg Q8HR PRN Administration Nausea And Vomiting Polyethylene Glycol 17 gm 03/05/24 09:00 03/07/24 08:02 Polyethylene Glycol 3350 17 Gm Powd.Pack PO 04/04/24 08:59 Not Given DAILY JON Polyethylene Glycol 17 gm 03/07/24 08:21 Polyethylene Glycol 3350 17 Gm Powd.Pack PO 03/07/24 08:22 ONCE STA Senna/Docusate Sodium 2 each 03/05/24 09:00 03/07/24 08:02 Sennosides-Docusate Sodium 1 Each Tab PO 04/04/24 08:59 2 each DAILY JON Administration Sodium Biphosphate/Sodium Phosphate 133 ml 03/04/24 14:57 Na Phos,M-B/Na Phos,Di-Ba 133 Ml Enema RECTAL 04/03/24 14:56 DAILY PRN Constipation Sodium Chloride 1 gm 03/07/24 09:00 Sodium Chloride Tab 1 Gm Tab PO 03/10/24 08:59 BID JON Tramadol HCl 50 mg 03/04/24 14:57 03/05/24 22:03 Tramadol 50 Mg Tab PO 04/03/24 14:56 50 mg Q6HR PRN Administration Pain Scale 4 - 6 Objective - Vital Signs Vital signs: Vital Signs Temp 99 F 03/07/24 02:00 Pulse 93 03/07/24 02:00 Resp 16 03/06/24 12:46 BP 109/61 03/07/24 02:00 Pulse Ox 92 L 03/07/24 02:00 FiO2 Intake & Output 03/06/24 03/07/24 03/07/24 18:59 06:59 18:59 Output Total 5 Balance -5 Output: Drainage 5 Lower Back 5 Other: Voiding Method Toilet # Voids 2 - Exam GENERAL: The patient is alert and oriented x3, not in any acute distress. Well developed, well nourished. HEENT: Pupils are round and equally reacting to light. EOMI. No scleral icterus. No conjunctival pallor. Normocephalic, atraumatic. No pharyngeal erythema. No thyromegaly. CARDIOVASCULAR: S1 and S2 present. No murmurs, rubs, or gallops. PULMONARY: Chest is clear to auscultation, no wheezing , no crackles. ABDOMEN: Soft, nontender, nondistended, normoactive bowel sounds. No palpable organomegaly. -MUSCULOSKELETAL: No joint swelling or deformity. Surgical wound with dressing in place, rest of exam is deferred to surgery team EXTREMITIES: No cyanosis, clubbing, or pedal edema. NEUROLOGICAL: Gross neurological examination did not reveal any focal deficits. SKIN: No rashes. no petechiae. - Labs CBC & Chem 7: 03/06/24 09:49 03/07/24 06:52 Labs: Abnormal Lab Results - Last 24 Hours (Table) 03/06/24 03/06/24 03/07/24 Range/Units 09:49 09:49 06:52 RBC 2.80 L (3.80-5.40) m/uL Hgb 8.7 L (11.4-16.0) gm/dL Hct 25.7 L (34.0-46.0) % Neutrophils # 7.9 H (1.3-7.7) k/uL Sodium 131 L 128 L (137-145) mmol/L Potassium 3.3 L 3.4 L (3.5-5.1) mmol/L Chloride 97 L (98-107) mmol/L Glucose 110 H (74-99) mg/dL Calcium 8.0 L (8.4-10.2) mg/dL Magnesium 1.5 L (1.6-2.3) mg/dL Assessment and Plan Assessment: lumbar stenosis with neurogenic claudication and lower back pain and lower extremity weakness. She is status post bilateral laminectomy and foraminotomy of L2-3, L3-4, L4-5, L5-S1. Hyponatremia could be to borderline blood pressure, pain and excessive water intake as well as hydrochlorothiazide. Asymptomatic bradycardia Hypertension, currently blood pressure is borderline Postoperative anemia, mild and asymptomatic which is expected Plan: Hold hydrochlorothiazide. Add sodium chloride tablets. Fluid restriction 1500 mL/day. Monitor sodium closely Monitor hemoglobin Continue with laxative Continue with bowel regiment as pain medication given Orthopedic primary team on the case PT/OT, patient may benefit from ECF upon discharge GI and DVT prophylaxis is deferred to surgery primary team We recommend patient follow-up with her PCP in 1 week after discharge Case was discussed with the primary team
[2024-03-07] MEDS: POTASSIUM CHLORIDE ER 20 MEQ TAB.ER PO STA (08:31)
[2024-03-07] MEDS: MAGNESIUM SULFATE-D5W PMX 1 GM in DEXTROSE/WATER 1 100ML.BAG IVPB ONE (08:31)
[2024-03-07] MEDS: polyethylene glycoL 3350 17 GM POWD.PACK PO STA (08:32)
--- NOTE | 2024-03-07 09:36 | P.PN ---
Subjective Progress Note Date: 03/07/24 Principal diagnosis: Lumbar stenosis with neurogenic claudication Low back pain Complication of implanted electronic neurostimulator of spinal cord Lower extremity weakness Patient seen and examined this morning. Assisted patient to sit at the side of the bed, Hemovac drain has been removed and surgical dressing has been changed. Incision is well approximated with liya intact. No active drainage noted. Patient was then assisted to chair at bedside. LSO brace inplace, patient tolerated activity well. She is a moderate x1 assist for bed mobility and ambulation with walker. She does state she has increased low back pain that radiates into the right lower extremity. She describes it as an electrical shock. Continue to encourage patient to change her position at least every two hours. Pain medication has been adjusted. Encourage use of incentive spirometer. Objective - Vital Signs Vital signs: Vital Signs Temp 99.0 F 03/07/24 07:35 Pulse 76 03/07/24 07:35 Resp 17 03/07/24 07:35 BP 122/69 03/07/24 07:35 Pulse Ox 91 L 03/07/24 07:35 FiO2 Intake & Output 03/06/24 03/07/24 03/07/24 18:59 06:59 18:59 Output Total 5 Balance -5 Output: Drainage 5 Lower Back 5 Other: Voiding Method Toilet # Voids 2 - Exam Physical Examination General: The patient is awake and alert, in no acute distress Skin: Skin is warm and dry with no obvious rashes or lesions. Surgical incision to the lumbar spine, edges are well approximated with liya intact. New dressing applied. Eye: Pupils are equal, round and reactive to light, extra-ocular movements are intact; there is normal conjunctiva bilaterally. Neck: The neck is supple, there is no tenderness and ROM intact. Cardiovascular: There is a regular rate and rhythm. No murmur, rub or gallop is appreciated. Respiratory: Respirations are non-labored, breath sounds are equal. Gastrointestinal: Soft, non-distended, non-tender abdomen. Back: There is no tenderness to palpation in the midline, paralumbar, parathoracic or buttocks region. There is no obvious deformity . Musculoskeletal: ROM limited secondary to pain and stiffness from surgical procedure. Right: Shoulder abduction 5/5, elbow flexors 5/5, wrist dorsiflexors 5/5. finger abductor 5/5, care coordination manager 5/5, hip flexor 4/5, knee flexor 4/5, ankle dorsiflexor 4/5, ankle plantarflexion 4/5 and extensor hallucis 4/5. Left: Shoulder abduction 5/5, elbow flexors 5/5, wrist dorsiflexors 5/5. finger abductor 5/5, care coordination manager 5/5, hip flexor 4/5, knee flexor 4/5, ankle dorsiflexor 4/5, ankle plantarflexion 4/5 and extensor hallucis 4/5. Neurological: CN 2-12 intact. There are no obvious motor or sensory deficits. Movement and coordination equal and intact. Sensory exam to light touch intact C5-T1 and intact from L2-S1. Reflexes 2/4 in bilateral upper and lower extremities. Negative Hoffmans, babinski, and clonus signs. Psychiatric: Cooperative, appropriate mood & affect, normal judgment. - Labs CBC & Chem 7: 03/06/24 09:49 03/07/24 06:52 Labs: Abnormal Lab Results - Last 24 Hours (Table) 03/06/24 03/06/24 03/07/24 Range/Units 09:49 09:49 06:52 RBC 2.80 L (3.80-5.40) m/uL Hgb 8.7 L (11.4-16.0) gm/dL Hct 25.7 L (34.0-46.0) % Neutrophils # 7.9 H (1.3-7.7) k/uL Sodium 131 L 128 L (137-145) mmol/L Potassium 3.3 L 3.4 L (3.5-5.1) mmol/L Chloride 97 L (98-107) mmol/L Glucose 110 H (74-99) mg/dL Calcium 8.0 L (8.4-10.2) mg/dL Magnesium 1.5 L (1.6-2.3) mg/dL Assessment and Plan Assessment: Postop day 3: L2-S1 laminectomy with stimulator removal Plan: -Appreciate continuous improvement consultant and team management. -Activity: Ambulate QID, OOB all meals, up and about, limit lifting bending twisting to less than 5 lbs. Use walker or cane if needed for stability. -Daily PT/OT, increase ambulation strength and balance. -Brace when up and about, not needed in bed or chair -Pain control: Adequate at this time -Meds: reviewed -GI ppx: senna, Miralax -DVT PPX: Heparin -Hygiene: Maintain dressing clean and dry. Meticulous cleaning after BMs away from the incision site -Drains: Maintain for now. Continue to monitor and record output q shift. -Encourage IS 10x/hr -Dispo: Anticipate discharge to [facility] tomorrow,03/08/24 vs 03/10/24 *I reviewed and discussed this case with my attending Dr. Rose, whom has reviewed this chart and films and is in agreement with assessment and plan of care as outlined above. I have personally seen and examined the patient, performed the documentation and the assessment and plan as written. Number of minutes spent on the visit: 20m.
[2024-03-07 11:08] LABS: HCT 23.1 % (37.2-46.3); HGB 7.9 g/dL (12.0-15.0); MCH 31.3 pg (27.0-32.0); MCHC 34.2 g/dL (32.0-37.0); MCV 91.7 FL (80.0-97.0); Mean Platelet Volume 9.7 FL (9.5-12.2); NRBC Per 100 WBC 0 X 10*3/uL (0.00-0.01); Platelet Count 159 X 10*3/uL (140-440); RBC 2.52 X 10*6/uL (4.10-5.20); RDW 12.6 % (11.5-14.5); WBC 9.67 X 10*3/uL (4.50-10.00)
[2024-03-07] MEDS: SODIUM CHLORIDE TAB 1 GM TAB PO SCH (11:17)
[2024-03-07] MEDS: HYDROcodone/APAP 7.5-325MG 1 EACH TAB PO SCH (11:21)
[2024-03-07] MEDS: HYDROmorphone 0.5 MG/0.5 ML SYRINGE IVP PRN (21:37)
[2024-03-08 03:08] VITALS: TEMP 98.1
[2024-03-08 08:40] VITALS: BP 115/51; PULSE 67; RESP 17
--- NOTE | 2024-03-08 08:42 | P.DS ---
Providers Date of admission: 03/05/24 11:09 Expected date of discharge: 03/08/24 Attending physician: Forrest Rose DO Consults: 03/04/24 15:00 Consult Physician Routine Consulting Provider: Isi Nance Consult Reason/Comments: medical management Do you want consulting provider notified?: Yes Primary care physician: Corinne Pritchard [facility] Course: date of admission: 03/04/2024 Date of discharge: 03/08/2024 Admission diagnosis: low back pain, bilateral lower extremity weakness, lumbar spondylosis, stenosis and neurogenic claudication Discharge diagnosis: same Attending physician: Dr. Rose Surgical procedures: L3-S1 laminectomy Brief history: Patient is a 83-year-old female with a history of severe low back pain, bilateral lower extremity weakness and known lumbar spondylosis with stenosis. At this point patient has failed conservative treatment measures and has opted to proceed with a elective L3-S1 laminectomy. Hospital course: Details of patient's surgery can be found in operative report. Patient tolerated the procedure well and was subsequently transported to orthopedic floor. Patient's orthopeidc and medical care was provided daily. Shoaib sood had daily laboratory tests performed for evaluation of overall blood counts. Patient had daily physical therapy to include strengthening range of motion as well as education with walker ambulation. Patient was treated with heparin for their postoperative DVT prophylaxis during their inpatient stay. Patient was noted to have a relatively uneventful postoperative course. Patient reported satisfactory pain control with oral pain medications by postoperative day 1. Patient showed satisfactory progress with physical therapy. Patient moved steadily through the program and had no difficulty meeting the goals by postoperative day 4. Given patient's otherwise satisfactory course and having met physical therapy goals, plan is to discharge patient subacute rehab on postoperative day 4. in stable condition. Discharge medications: Instructions are given on resumption of patient's normal daily medications per primary care recommendation, in addition patient will be prescribed Star Tannery 7.5 mg / 325 mg, Flexeril 10 mg, Duricef 500 mg, senna S. Spine Discharge and Recovery Instructions Medications: See medication list All medication refills should be obtained through your primary care doctor or your clinic spine surgeon. Please discuss prescription refills at your follow up appointment. Do not call the hospital for medication refills. Dressing: Leave your dressing in place for a total of 5 days post operatively. Then you may remove your dressing and leave open to air. Keep the area clean and if not able to keep area clean, then cover with sterile gauze and tape. Showering: You may shower 3 days after your procedure allowing soap and water to run over incision. Do not scrub. Do not soak. Blot dry. Follow up: Please confirm a follow up appointment with your surgeon 3 weeks post operatively. Please make an appointment to follow up with your PCP in 1-2 weeks after surgery for evaluation '3 phase, 3-week plan' POST OP WEEKS 1-3 1. Lifting/carrying/pushing/pulling limited to less than 5 pounds. 2. Do not sit for longer than 15 minutes at one time. Get up and walk around. Prolonged sitting is NOT advised. If you lay down, see if you can tolerate laying down on you front (belly side) 3. Walk for periods of 15 minutes = 1 mile but no longer; do it multiple times times each day. 4. Ice your low back after activity. POST OP WEEKS 3-6 1. Lifting limited to less than 20 pounds. 2. Do not sit for longer than 30 minutes at a time. Frequently change positions. Use a sit-to stand workstation or take frequent breaks from sitting if you have returned to work. 3. Walk for 30 minutes each day. If possible, do these three or more times a day POST OP WEEKS 6+ At your 6-week appointment we will give you a physical therapy referral to focus on a core stabilization and strengthening program. You should also work on leg & buttock strengthening, hamstring & quadriceps stretching, and continue a low impact aerobic activity program such as swimming, walking, or riding a stationary bicycle. During the initial 6 weeks after your surgery, you are at the highest risk of re-injuring your spine. You should generally avoid BLT's (bending, lifting and twisting combination motions) and follow the above guidelines to reduce the chance of reinjury. You can anticipate post op appointments in our office at approximately 3 weeks and 6 weeks after your surgery. INCISION CARE: If your incision is not draining you do NOT need to cover it with a dressing. Keep your incision clean, dry and intact. In most cases, we apply skin glue, liya or sutures to the incision at the time of surgery. This will be like a crust or have the appearance of a scab and will fall off in time on its own. The stitches or liya need to be removed at 3 weeks post op appointment. You may begin to shower 3 days after surgery (this allows the glue to morataya well). However, please avoid scrubbing the incision site or peeling off any of the skin glue. This will ensure optimal healing of your incision. Also, during this time avoid soaking the incision area in water - this includes swimming pools, hot tubs or baths. No ointments, lotions or oils on the incision until your surgeon allows. Leave liya, sutures or glue in place. Neurological dysfunction that comes on suddenly can also be a sign of a stroke. Below some common symptoms of a stroke are listed: B - balance difficulty such as sudden onset walking or leaning to one side - NEW E - eye problem such as sudden double vision or trouble seeing on one side - NEW F - Facial weakness or numbness on one side - NEW A - Arm or leg weakness or numbness on one side - NEW S - Slurred speech or difficulty with word finding - NEW T - Time is BRAIN! Call 911 as soon as you recognize these symptoms Diet: Consume a regular diet rich in vegetables and lean protein such as chicken or fish. You should consume in a ratio of approximately 20% fats|40% carbohydrates|40%protein. Vegetables, sweet potatoes, brown rice or quinoa are examples of good carbohydrates. Chips, white bread, cookies and sweets/sugar are examples of bad carbohydrates. Limit your bad carbs, go wild with good carbs. "Life's Simple 7" Guidelines as per [place] [employer] These will help you reclaim your life after surgery and wrapping machine helper in your recovery, keeping in mind your restrictions. (1) Get Active. Physical activity can help people lose weight, control high blood pressure and cholesterol, feel emotionally better, and sleep better. (2) Control Cholesterol. Avoid a diet high in saturated fat, trans fat, & cholesterol. Limit whole milk & cream, ice cream, butter, egg yolks, processed meats (like sausage and hot dogs), and fatty meats. Choose healthy foods that are low in saturated fat, trans fat and cholesterol which include: Fruits and vegetables, fiber rich grain products (like whole grain pasta and brown rice), lean meat such as chicken, fish, nuts, seeds, and legumes. (3) Eat Better. Eat small portions. Shop at the grocery with a list and do not stray from it. Tips for a healthy diet include: Limit sodium intake to less than 1500mg daily, avoid prepackaged, processed, and fast foods, choose a diet rich in fruits, vegetables, and whole grain, high fiber foods, and limit saturated & cholesterol in your diet. (4) Manage Blood Pressure. If you have high blood pressure, you should have a cuff at home so that you can check your blood pressure regularly. Be sure you have a good cuff. An arm one is generally better than a wrist one. Bring the cuff to a doctor's appointment to validate that the measurements that your cuff are taking are accurate. Take your blood pressure twice daily when you are sitting down and relaxing. Record the numbers in a log and bring this log with you to your doctors' appointments. (5) Lose Weight if your BMI is above 25. A healthy BMI is between 19-25. To calculate Your BMI, you may use a Standard BMI Calculator on the NIH BMI website : <www.nhlbi.nih.gov/guidelines/obesity/BMI/bmicalc.htm>. Weigh oneself daily. If you are overweight, set a goal to lose weight. A pound a week loss if needed is a good target. (6) Reduce Blood Sugar. Limit foods and liquids with "added sugars." (Added sugars include sucrose, fructose, glucose, maltose, dextrose, high fructose corn syrup, corn syrup, concentrated fruit juice and honey). (7) Stop Smoking. If you smoke, quitting smoking is one of the best things that you can do for your health. Smoking increases your risk of heart attack, stroke, and peripheral vascular disease, which is a build-up of plaque in your arteries. Please discard all the cigarettes and lighters in your house. Have a plan for what you will do when you have the urge to smoke. Direct and second- hand smoke shortens your life as well as the lives of your family, friends and others around you. For your health and the health of those around you, please consider quitting! Proper Bending Body Mechanics: Maintain a wide stance with one foot slightly in front of the other. Keep your back straight. Bend utilizing the strength in your hips and knees. Do not bend at the waist. Maintain the lifted object at your waist-level close to your body. Avoid lifting weight that causes immediately pain or pain anywhere in the body afterwards. Smoking/Nicotine If there was ever one thing that you could do to increase your overall health, decrease your risk of cardiovascular problems by about 39% the second you make the choice, it is to STOP SMOKING. Your body's most instant gratification is the second you stop smoking. We have all heard the studies, read the articles but it is true, smoking is extremely bad for your overall health, and moreover it is detrimental to your bone health. Nicotine, IN ANY FORM, kills bone cells, prevents your body from healing fractures, and significantly prolongs healing after surgery. In spine surgery specifically, it increases your risk of not healing your bones to create a fusion and increases your risk of having a revision surgery due to this up to 60%. I know it is hard. I know it feels impossible. But there are ways. Take control of your life. We are here to help you through it. And when you are ready, ask us and we can direct you to help if you desire. Use the START Plan to Quit Smoking (please visit the Helpguide.org website listed below for more information): S = Set a quit date. Choose a date within the next 2 weeks, so you have enough time to prepare without losing your motivation to quit. If you mainly smoke at work, quit on the weekend, so you have a few days to adjust to the change. T = Tell family, friends, and co-workers that you plan to quit. Let your friends and family in on your plan to quit smoking and tell them you need their support and encouragement to stop. Look for a quit david who wants to stop smoking as well. You can help each other get through the rough times. A = Anticipate and plan for the challenges you'll face while quitting. Most people who begin smoking again do so within the first 3 months. You can help yourself make it through by preparing ahead for common challenges, such as nicotine withdrawal and cigarette cravings. R = Remove cigarettes and other tobacco products from your home, car, and work. Throw away all your cigarettes (no emergency pack!), lighters, ashtrays, and matches. Wash your clothes and freshen up anything that smells like smoke. Shampoo your car, clean your drapes and carpet, and steam your furniture. T = Talk to your doctor about getting help to quit. Your doctor can prescribe medication to help with withdrawal and suggest other alternatives. If you can't see a doctor, you can get many products over the counter at your local pharmacy or grocery store, including the nicotine patch, nicotine lozenges, and nicotine gum. Resources for Quitting Smoking: <https://www.[place].gov/documents/[facility]/Quit_Tobacco_Resources_for_patients_313 480_7.pdf> Supplementation: Take recommended dosages of Vitamin D and Calcium to help fortify your bones and help them to heal. See your health maintenance packet for dosages and recommended levels. DVT/VTE prophylaxis: You will be given compression stockings from the hospital. Wear these daily for the first two weeks after surgery. You may take them off at night. You may be prescribed a medication to help thin your blood. Take this as directed. If you are not prescribed this medication, early and frequent ambulation has been shown to be the best prophylaxis to deep vein thrombosis and sequelae related to this event. Procedures: L3-S1 laminectomy Plan - Discharge Summary Discharge Rx Participant: No New Discharge Prescriptions: New cefaDROXiL [Duricef] 500 mg PO Q12HR 5 Days #10 cap Cyclobenzaprine [Flexeril] 10 mg PO BID PRN #30 tab PRN Reason: Pain HYDROcodone/APAP 7.5-325MG [Star Tannery 7.5] 1 each PO Q6HR PRN #28 tab PRN Reason: Pain Sennosides/Docusate Sodium [Senna-S 8.6-50 mg Tablet] 2 each PO DAILY PRN #30 tablet PRN Reason: Constipation No Action Metoprolol Succinate [Toprol XL] 200 mg PO QAM Enalapril/Hydrochlorothiazide [Vaseretic 10-25 mg] 1 each PO QAM Cholecalciferol [Vitamin D3 (25 Mcg = 1000 Iu)] 50 mcg PO DAILY Vitamin B Complex 1 each PO DAILY Turmeric Root Extract [Turmeric] 500 mg PO DAILY Discharge Medication List Metoprolol Succinate [Toprol XL] 200 mg PO QAM 11/12/13 [History] Enalapril/Hydrochlorothiazide [Vaseretic 10-25 mg] 1 each PO QAM 11/30/15 [Hist ory] Turmeric Root Extract [Turmeric] 500 mg PO DAILY 10/11/20 [History] Cholecalciferol [Vitamin D3 (25 Mcg = 1000 Iu)] 50 mcg PO DAILY 11/09/22 [History] Vitamin B Complex 1 each PO DAILY 11/09/22 [History] Cyclobenzaprine [Flexeril] 10 mg PO BID PRN #30 tab 03/08/24 [Rx] HYDROcodone/APAP 7.5-325MG [Star Tannery 7.5] 1 each PO Q6HR PRN #28 tab 03/08/24 [Rx] Sennosides/Docusate Sodium [Senna-S 8.6-50 mg Tablet] 2 each PO DAILY PRN #30 tablet 03/08/24 [Rx] cefaDROXiL [Duricef] 500 mg PO Q12HR 5 Days #10 cap 03/08/24 [Rx] Follow up Appointment(s)/Referral(s): Forrest Rose DO [Doctor of Osteopathic Medicine] - 2 Weeks Activity/Diet/Wound Care/Special Instructions: Spine Discharge and Recovery Instructions Medications: See medication list All medication refills should be obtained through your primary care doctor or your clinic spine surgeon. Please discuss prescription refills at your follow up appointment. Do not call the hospital for medication refills. Dressing: Leave your dressing in place for a total of 5 days post operatively. Then you may remove your dressing and leave open to air. Keep the area clean and if not able to keep area clean, then cover with sterile gauze and tape. Showering: You may shower 3 days after your procedure allowing soap and water to run over incision. Do not scrub. Do not soak. Blot dry. Follow up: Please confirm a follow up appointment with your surgeon 3 weeks post operatively. Please make an appointment to follow up with your PCP in 1-2 weeks after surgery for evaluation '3 phase, 3-week plan' POST OP WEEKS 1-3 1. Lifting/carrying/pushing/pulling limited to less than 5 pounds. 2. Do not sit for longer than 15 minutes at one time. Get up and walk around. Prolonged sitting is NOT advised. If you lay down, see if you can tolerate laying down on you front (belly side) 3. Walk for periods of 15 minutes = 1 mile but no longer; do it multiple times times each day. 4. Ice your low back after activity. POST OP WEEKS 3-6 1. Lifting limited to less than 20 pounds. 2. Do not sit for longer than 30 minutes at a time. Frequently change positions. Use a sit-to stand workstation or take frequent breaks from sitting if you have returned to work. 3. Walk for 30 minutes each day. If possible, do these three or more times a day POST OP WEEKS 6+ At your 6-week appointment we will give you a physical therapy referral to focus on a core stabilization and strengthening program. You should also work on leg & buttock strengthening, hamstring & quadriceps stretching, and continue a low impact aerobic activity program such as swimming, walking, or riding a stationa ry bicycle. During the initial 6 weeks after your surgery, you are at the highest risk of re-injuring your spine. You should generally avoid BLT's (bending, lifting and twisting combination motions) and follow the above guidelines to reduce the chance of reinjury. You can anticipate post op appointments in our office at approximately 3 weeks and 6 weeks after your surgery. INCISION CARE: If your incision is not draining you do NOT need to cover it with a dressing. Keep your incision clean, dry and intact. In most cases, we apply skin glue, liya or sutures to the incision at the time of surgery. This will be like a crust or have the appearance of a scab and will fall off in time on its own. The stitches or liya need to be removed at 3 weeks post op appointment. You may begin to shower 3 days after surgery (this allows the glue to morataya well). However, please avoid scrubbing the incision site or peeling off any of the skin glue. This will ensure optimal healing of your incision. Also, during this time avoid soaking the incision area in water - this includes swimming pools, hot tubs or baths. No ointments, lotions or oils on the incision until your surgeon allows. Leave liya, sutures or glue in place. Neurological dysfunction that comes on suddenly can also be a sign of a stroke. Below some common symptoms of a stroke are listed: B - balance difficulty such as sudden onset walking or leaning to one side - NEW E - eye problem such as sudden double vision or trouble seeing on one side - NEW F - Facial weakness or numbness on one side - NEW A - Arm or leg weakness or numbness on one side - NEW S - Slurred speech or difficulty with word finding - NEW T - Time is BRAIN! Call 911 as soon as you recognize these symptoms Diet: Consume a regular diet rich in vegetables and lean protein such as chicken or fish. You should consume in a ratio of approximately 20% fats|40% carbohy drates|40%protein. Vegetables, sweet potatoes, brown rice or quinoa are examples of good carbohydrates. Chips, white bread, cookies and sweets/sugar are examples of bad carbohydrates. Limit your bad carbs, go wild with good carbs. "Life's Simple 7" Guidelines as per [place] [employer] These will help you reclaim your life after surgery and wrapping machine helper in your recovery, keeping in mind your restrictions. (1) Get Active. Physical activity can help people lose weight, control high blood pressure and cholesterol, feel emotionally better, and sleep better. (2) Control Cholesterol. Avoid a diet high in saturated fat, trans fat, & cholesterol. Limit whole milk & cream, ice cream, butter, egg yolks, processed meats (like sausage and hot dogs), and fatty meats. Choose healthy foods that are low in saturated fat, trans fat and cholesterol which include: Fruits and vegetables, fiber rich grain products (like whole grain pasta and brown rice), lean meat such as chicken, fish, nuts, seeds, and legumes. (3) Eat Better. Eat small portions. Shop at the grocery with a list and do not stray from it. Tips for a healthy diet include: Limit sodium intake to l ess than 1500mg daily, avoid prepackaged, processed, and fast foods, choose a diet rich in fruits, vegetables, and whole grain, high fiber foods, and limit saturated & cholesterol in your diet. (4) Manage Blood Pressure. If you have high blood pressure, you should have a cuff at home so that you can check your blood pressure regularly. Be sure you have a good cuff. An arm one is generally better than a wrist one. Bring the cuff to a doctor's appointment to validate that the measurements that your cuff are taking are accurate. Take your blood pressure twice daily when you are sitting down and relaxing. Record the numbers in a log and bring this log with you to your doctors' appointments. (5) Lose Weight if your BMI is above 25. A healthy BMI is between 19-25. To calculate Your BMI, you may use a Standard BMI Calculator on the NIH BMI website: <www.nhlbi.nih.gov/guidelines/obesity/BMI/bmicalc.htm>. Weigh oneself daily. If you are overweight, set a goal to lose weight. A pound a week loss if needed is a good target. (6) Reduce Blood Sugar. Limit foods and liquids with "added sugars." (Added sugars include sucrose, fructose, glucose, maltose, dextrose, high fructose corn syrup, corn syrup, concentrated fruit juice and honey). (7) Stop Smoking. If you smoke, quitting smoking is one of the best things that you can do for your health. Smoking increases your risk of heart attack, stroke, and peripheral vascular disease, which is a build-up of plaque in your arteries. Please discard all the cigarettes and lighters in your house. Have a plan for what you will do when you have the urge to smoke. Direct and second- hand smoke shortens your life as well as the lives of your family, friends and others around you. For your health and the health of those around you, please consider quitting! Proper Bending Body Mechanics: Maintain a wide stance with one foot slightly in front of the other. Keep your back straight. Bend utilizing the strength in your hips and knees. Do not bend at the waist. Maintain the lifted object at your waist-level close to your body. Avoid lifting weight that causes immediately pain or pain anywhere in the body afterwards. Smoking/Nicotine If there was ever one thing that you could do to increase your overall health, decrease your risk of cardiovascular problems by about 39% the second you make the choice, it is to STOP SMOKING. Your body's most instant gratification is the second you stop smoking. We have all heard the studies, read the articles but it is true, smoking is extremely bad for your overall health, and moreover it is detrimental to your bone health. Nicotine, IN ANY FORM, kills bone cells, prevents your body from healing fractu res, and significantly prolongs healing after surgery. In spine surgery specifically, it increases your risk of not healing your bones to create a fusion and increases your risk of having a revision surgery due to this up to 60%. I know it is hard. I know it feels impossible. But there are ways. Take control of your life. We are here to help you through it. And when you are ready, ask us and we can direct you to help if you desire. Use the START Plan to Quit Smoking (please visit the Helpguide.org website listed below for more information): S = Set a quit date. Choose a date within the next 2 weeks, so you have enough time to prepare without losing your motivation to quit. If you mainly smoke at work, quit on the weekend, so you have a few days to adjust to the change. T = Tell family, friends, and co-workers that you plan to quit. Let your friends and family in on your plan to quit smoking and tell them you need their support and encouragement to stop. Look for a quit david who wants to stop smoking as well. You can help each other get through the rough times. A = Anticipate and plan for the challenges you'll face while quitting. Most people who begin smoking again do so within the first 3 months. You can help yourself make it through by preparing ahead for common challenges, such as nicotine withdrawal and cigarette cravings. R = Remove cigarettes and other tobacco products from your home, car, and work. Throw away all your cigarettes (no emergency pack!), lighters, ashtrays, and matches. Wash your clothes and freshen up anything that smells like smoke. Shampoo your car, clean your drapes and carpet, and steam your furniture. T = Talk to your doctor about getting help to quit. Your doctor can prescribe medication to help with withdrawal and suggest other alternatives. If you can't see a doctor, you can get many products over the counter at your local pharmacy or grocery store, including the nicotine patch, nicotine lozenges, and nicotine gum. Resources for Quitting Smoking: <https://www.[place].gov/documents/[facility]/Quit_Tobacco_Resources_for_patients_313 480_7.pdf> Supplementation: Take recommended dosages of Vitamin D and Calcium to help fortify your bones and help them to heal. See your health maintenance packet for dosages and recommended levels. DVT/VTE prophylaxis: You will be given compression stockings from the hospital. Wear these daily for the first two weeks after surgery. You may take them off at night. You may be prescribed a medication to help thin your blood. Take this as directed. If you are not prescribed this medication, early and frequent ambulation has been shown to be the best prophylaxis to deep vein thrombosis and sequelae related to this event. Discharge Disposition: TRANSFER TO SNF/ECF
[2024-03-08 12:09] LABS: African American GFR (CKD) 65 (>60 ml/min/1.73 sqM); Anion Gap 3 mmol/L; Carbon Dioxide 29 mmol/L (22-30); Chloride 97 mmol/L (98-107); Magnesium 1.8 mg/dL (1.6-2.3); Non-African American GFR(CKD) 56 (>60 ml/min/1.73 sqM); Potassium 4.2 mmol/L (3.5-5.1); Sodium 129 mmol/L (137-145)
--- NOTE | 2024-03-08 12:47 | P.PN ---
Subjective This is a pleasant 83 years old female with previous history of back pain and other medical problems She was admitted for significant lumbar stenosis with neurogenic claudication and lower back pain and lower extremity weakness. She is status post bilateral laminectomy and foraminotomy of L2-3, L3-4, L4-5, L5-S1. Today's postop day #1 Patient sitting up in bed. She denies chest pain or dyspnea. No overt GI/ complaint She still has some pain in her surgery site which is expected and she rated as 5-6/10 in severity She is not sure if her legs start improving yet She denies any other specific complaint Hemodynamically stable, she has heart rate around 50 overnight, currently better Blood pressure stable Labs reviewed, hemoglobin is 9.7 which is expected, rest of CBC, BMP is unremarkable with creatinine is 0.9. 03/06 Patient in mild distress today due to surgery site pain, she rated about 6/10 in severity No chest pain or dyspnea No abdominal pain She has no bowel movement yet Patient might benefit from ECF admission for rehab upon discharge, patient looks agreeable to this 2. Patient hemoglobin yesterday 9.7 which is expected. Also patient on normal saline. She is also on Toradol for pain control Recheck hemoglobin tomorrow 03/07 Patient awake alert She had a rough night because she had pain in her surgical site and she could not get up, currently her pain at the surgical area subsided down to 5/6, she is not in distress anymore. She complains also from constipation. We are going to order a one-time dose of MiraLAX She denies any other complaint. Her blood pressure was borderline overnight and during sleep, this morning better with systolic 120s per staff. Patient with no symptoms Patient's is on lisinopril 20 mg daily and hydrochlorothiazide which she received both this morning. We are going to discontinue hydrochlorothiazide with worsening hyponatremia 138, 131 and 128 today Low potassium and magnesium replaced Will recommend continue close monitoring of blood pressure and sodium level 03/08 patient today is up in bed, she denies chest pain dyspnea no other complaint. She still has pain and some difficulty at surgical site which is expected her blood pressure this morning 115/51, therefore we will continue with home dose of Vasotec hundred milligrams while holding hydrochlorothiazide and metopro lol upon discharge with close monitoring of blood pressure sodium levels corrected 128 up to 129 after discontinuing hydrochlorothiazide. Also with fluid restriction. We recommend patient to check her sodium level in 1 to 2 days after discharge. Patient informed with the management plan as above and she verbalized understanding and acceptance rest of management is deferred to surgery primary team Objective - Vital Signs Vital signs: Vital Signs Temp 98.1 F 03/08/24 07:31 Pulse 67 03/08/24 07:31 Resp 17 03/08/24 07:31 BP 115/51 03/08/24 07:31 Pulse Ox 97 03/08/24 07:31 FiO2 Intake & Output 03/07/24 03/08/24 03/08/24 18:59 06:59 18:59 Other: Voiding Method Toilet # Voids 1 - Exam GENERAL: The patient is alert and oriented x3, not in any acute distress. Well developed, well nourished. HEENT: Pupils are round and equally reacting to light. EOMI. No scleral icterus. No conjunctival pallor. Normocephalic, atraumatic. No pharyngeal erythema. No thyromegaly. CARDIOVASCULAR: S1 and S2 present. No murmurs, rubs, or gallops. PULMONARY: Chest is clear to auscultation, no wheezing , no crackles. ABDOMEN: Soft, nontender, nondistended, normoactive bowel sounds. No palpable organomegaly. -MUSCULOSKELETAL: No joint swelling or deformity. Surgical wound with dressing in place, rest of exam is deferred to surgery team EXTREMITIES: No cyanosis, clubbing, or pedal edema. NEUROLOGICAL: Gross neurological examination did not reveal any focal deficits. SKIN: No rashes. no petechiae. - Labs CBC & Chem 7: 03/07/24 06:52 03/08/24 11:27 Assessment and Plan Assessment: lumbar stenosis with neurogenic claudication and lower back pain and lower extremity weakness. She is status post bilateral laminectomy and foraminotomy of L2-3, L3-4, L4-5, L5-S1. Hyponatremia could be to borderline blood pressure, pain and excessive water intake as well as hydrochlorothiazide. Asymptomatic bradycardia Hypertension, currently blood pressure is borderline Postoperative anemia, mild and asymptomatic which is expected Plan: discontinue hydrochlorothiazide. w/w Fluid restriction 1500 mL/day. Monitor sodium closely and recheck level of sodium in 1 to 2 days Monitor hemoglobin Continue with laxative Continue with bowel regiment as pain medication given continue with vasa take 10 mg open discharge will discontinue hydrochlorothi azide. Also hold metoprolol 200 mg daily as her blood pressure and borderline which is expected after her surgery. Orthopedic primary team on the case PT/OT, patient may benefit from ECF upon discharge. Patient is going tomorrow and upon discharge GI and DVT prophylaxis is deferred to surgery primary team We recommend patient follow-up with her PCP in 1 week after discharge other than that patient is medically stable this was discussed with staff and bedside nurse
--- NOTE | 2024-03-08 13:11 | P.PN ---
Subjective Progress Note Date: 03/08/24 Principal diagnosis: Status post L3-S1 laminectomy Patient evaluated at bedside, she is resting in her hospital chair. Patient is being discharged to rehab today. She continues to improve with pain control and ambulation. She denies headaches, lightheadedness, chest pain or shortness of breath Objective - Vital Signs Vital signs: Vital Signs Temp 98.1 F 03/08/24 07:31 Pulse 67 03/08/24 07:31 Resp 17 03/08/24 07:31 BP 115/51 03/08/24 07:31 Pulse Ox 97 03/08/24 07:31 FiO2 Intake & Output 03/07/24 03/08/24 03/08/24 18:59 06:59 18:59 Other: Voiding Method Toilet # Voids 1 1 - Exam Gen: AOx3, NAD VSS stable at this time Integument: Postop dressing is in good position and condition Palpation: Mild tenderness with palpation of the lumbar spine ROM: Full range of motion in all major muscle groups of bilateral lower extremities, no focal deficits Sensory Exam: [Senosry exam to light touch is intact L2-S1] Motor: 4/5 strength appreciated in the bilateral lower extremities with hip flexion, knee extension, knee flexion, plantarflexion, dorsiflexion, EHL, FHL Reflexes: Negative clonus bilaterally Special Test: Negative straight leg raise bilaterally - Labs CBC & Chem 7: 03/07/24 06:52 03/08/24 11:27 Labs: Abnormal Lab Results - Last 24 Hours (Table) 03/08/24 Range/Units 11:27 Sodium 129 L (137-145) mmol/L Chloride 97 L (98-107) mmol/L Assessment and Plan Assessment: Status post L3-S1 laminectomy and spinal cord stimulator removal Plan: Pain control, patient will be discharged with Flexeril and [employer] Stool softeners have also been prescribed for outpatient use Wound care instructions discussed, this to include showering and bandage use Weight-bear as tolerated with walker LSO brace when up and ambulating longer distances Discharge planning: Stable for discharge today to rehab Time with Patient: Less than 30
== END 2024-03-08 13:32 | DRG 519 ==
LOC: OR 09:37 → 4SSUR 14:40 → OR 03-05 11:09
PROVIDERS: ADMIT Orthopaedic Surgery; ATTEND Orthopaedic Surgery
PROC: 0QB00ZZ Excision of Lumbar Vertebra, Open Approach (ICD-10-PCS; 2024-03-04)
PROC: 01NB0ZZ Release Lumbar Nerve, Open Approach (ICD-10-PCS; 2024-03-04)
PROC: 00NY0ZZ Release Lumbar Spinal Cord, Open Approach (ICD-10-PCS; 2024-03-04)
PROC: 0JPT0MZ Removal of Stimulator Generator from Trunk Subcutaneous Tissue and Fascia, Open Approach (ICD-10-PCS; 2024-03-04)
PROC: 00PU0MZ Removal of Neurostimulator Lead from Spinal Canal, Open Approach (ICD-10-PCS; principal; 2024-03-04 14:30)
DX: M48.062 Spinal stenosis, lumbar region with neurogenic claudication (principal); E87.1 Hypo-osmolality and hyponatremia; I10 Essential (primary) hypertension; M47.26 Other spondylosis with radiculopathy, lumbar region; M25.78 Osteophyte, vertebrae; E78.5 Hyperlipidemia, unspecified; K59.00 Constipation, unspecified; Z79.899 Other long term (current) drug therapy; Z88.6 Allergy status to analgesic agent; Z88.5 Allergy status to narcotic agent; Z88.8 Allergy status to other drugs, medicaments and biological substances
CPT/HCPCS: 72100; 80048; 80051; 82565; 83735; 85025; 85027